=== PATIENT | male | born 1950 | race Caucasian/White ===

== ENCOUNTER 2020-01-31 09:59 | Outpatient (REF) | payer OTHER, SELFPAY ==
[2020-01-31 11:26] LABS: Hematocrit 44.6 % (42-52); Hemoglobin 14.8 g/dl (14.0-18.0); Mean Corpuscular HGB Conc 33.2 g/dl (31.0-36.0); Mean Corpuscular Hemoglobin 27.6 pg (27.0-33.0); Mean Corpuscular Volume 83.1 fL (80-98); Mean Platelet Volume 10.4 fL (9.4-12.4); Platelet Count 207 X10*3/uL (160-400); Red Blood Count 5.37 X10*6/uL (4.60-5.80); Red Cell Distribution Width 12.5 % (11.0-16.0); White Blood Count 8.5 X10*3/uL (4.8-10.8)
[2020-01-31 11:45] LABS: Alanine Aminotransferase 39 U/L (0-40); Albumin Level 4.2 g/dL (3.5-5.0); Alkaline Phosphatase 132 U/L (39-117); Anion Gap 13 (12-20); Aspartate Amino Transferase 31 U/L (5-37); Bilirubin Direct 0.2 mg/dL (0.0-0.5); Bilirubin Total 0.8 mg/dL (0.0-1.0); Blood Urea Nitrogen 18 mg/dL (9-16); Calcium 9.1 mg/dL (8.4-10.2); Carbon Dioxide 27 mmol/L (22-29); Chloride 101 mmol/L (96-108); Cholesterol 146 mg/dL; Estimated Glomerular Filt Rate 53; Glucose Random 343 mg/dL (60-115); HDL Cholesterol 33 mg/dL; LDL Cholesterol Calculated 39 mg/dl; Potassium 4.2 mmol/l (3.3-5.1); Sodium 137 mmol/L (135-145); Triglycerides 372 mg/dL
== END 2020-01-31 10:00 | disposition home or self-care (01) ==
LOC: HO.HMGCLDS 09:59
PROVIDERS: PCP Internal Medicine; Visit Provider Internal Medicine
DX: I10 Essential (primary) hypertension (principal)
CPT/HCPCS: 36415; 80048; 80061; 80076; 85027

== ENCOUNTER 2020-02-04 07:59 | Day surgery (SDC) | payer OTHER, SELFPAY ==
[2020-01-29 09:58] VITALS: BMI 29.7
--- NOTE | 2020-01-31 13:11 | MHC.SHP ---
Pre-Procedural Eval Section A The patient is an INPATIENT: No The History & Physical has been completed within 30 days and I have reviewed it.: Yes Section B Chief Complaint: Cataract Right Eye Allergies: Allergies Allergy/AdvReac Type Severity Reaction Status Date / Time oxycodone [OXYCODONE] AdvReac Severe SEVERE Verified 01/27/20 09:33 VOMITNG Plan Diagnosis/Plan: Unchanged Patient has been examined and remains a candidate for the planned procedure
--- NOTE | 2020-02-01 13:54 | HO.ANESPROP2 ---
Documented by User: Trisha Archibald 02/01/20 13:56 HPI - Anesthesia Eval Consult details Narrative: 69yo M for cataract PCP cleared [facility] Past Medical History Medical History Back pain Benign essential hypertension Cataract Coronary artery disease Hx of gout Lab test negative for COVID-19 virus Osteoarthritis of hips, bilateral Overweight (BMI 25.0-29.9) Pure hypercholesterolemia Family History Family History Father Diabetes Kidney failure Mother Colon cancer Surgical History Surgical History (Updated 01/29/20 @ 10:[address]) History of colonoscopy History of hip replacement History of right hip replacement Hx of coronary angioplasty Social History Social History Smoking Status: Former smoker Tobacco Type: Cigarette Smoked in Last 30 Days: No Smoking Quit Date: age 46 Use of substances other than those prescribed or required for medical reasons: No Have you been hit, kicked, punched, or otherwise hurt by someone within the past year? If so, by whom?: No Advance Directives Information Provided: No Recently lost weight without trying: No Meds Allergies Allergy/AdvReac Type Severity Reaction Status Date / Time oxycodone [OXYCODONE] AdvReac Severe SEVERE Verified 01/27/20 09:33 VOMITNG Home Medications Medication Instructions Recorded Confirmed Type lisinopril 10 mg tablet 10 mg PO DAILY 01/24/20 01/29/20 History rosuvastatin 20 mg tablet 20 mg PO BEDTIME 01/24/20 01/29/20 History aspirin 81 mg tablet,delayed 81 mg PO DAILY 01/27/20 01/29/20 History release indomethacin 50 mg PO BID PRN 01/29/20 01/29/20 History Exam Exam Date and Time: February 01, 2020 1354 Height,Weight and Vital Signs: Height 5 ft 6 in Weight 83.461 kg Pertinent Lab Results Pertinent Lab Results: Laboratory Tests 01/31/20 01/31/20 10:06 10:06 WBC 8.5 Hgb 14.8 Hct 44.6 Plt Count 207 Sodium 137 Potassium 4.2 Chloride 101 BUN 18 H Creatinine 1.32 Assessment and Plan Assessment Anesthesia Assessment: Chart Reviewed Documented by User: Radha Rogelio 02/04/20 09:30 [facility] Past Medical History Medical History Back pain Benign essential hypertension Cataract Coronary artery disease Hx of gout Lab test negative for COVID-19 virus Osteoarthritis of hips, bilateral Overweight (BMI 25.0-29.9) Pure hypercholesterolemia Family History Family History Father Diabetes Kidney failure Mother Colon cancer Surgical History Surgical History (Updated 01/29/20 @ 10:[address]) History of colonoscopy History of hip replacement History of right hip replacement Hx of coronary angioplasty Social History Social History Smoking Status: Former smoker Tobacco Type: Cigarette Smoked in Last 30 Days: No Smoking Quit Date: age 46 Use of substances other than those prescribed or required for medical reasons: No Have you been hit, kicked, punched, or otherwise hurt by someone within the past year? If so, by whom?: No Advance Directives Information Provided: No Recently lost weight without trying: No Meds Allergies Allergy/AdvReac Type Severity Reaction Status Date / Time oxycodone [OXYCODONE] AdvReac Severe SEVERE Verified 01/27/20 09:33 VOMITNG Home Medications Medication Instructions Recorded Confirmed Type lisinopril 10 mg tablet 10 mg PO DAILY 01/24/20 01/29/20 History rosuvastatin 20 mg tablet 20 mg PO BEDTIME 01/24/20 01/29/20 History aspirin 81 mg tablet,delayed 81 mg PO DAILY 01/27/20 01/29/20 History release indomethacin 50 mg PO BID PRN 01/29/20 01/29/20 History Exam Airway Mallampati Class: III TM Dist: >3cm Neck ROM: Full Denture: Upper Partial: Upper Heart: RRR Lungs: CTA BL Assessment and Plan Assessment Anesthesia Assessment: Anesthesia Plan Discussed and Chart Reviewed Final Anesthetic Review NPO: Yes (Sip water meds) ASA Class: II Final Preanesthetic Review: Meds/Allgs Chart Reviewed and Consent Obtained/Reviewed Patient Risk: Intermediate Procedure Risk: Intermediate Anesthetic Plan Anesthetic Plan: MAC: Disposition: Standard PACU
[2020-02-04 09:23] VITALS: BP 149/77; PULSE 60; RESP 16; TEMP 35.8; O2SAT 97
[2020-02-04] MEDS: Lactated Ringers 500 ML 50 ML IV (09:28)
[2020-02-04] MEDS: Tetracaine HCl/PF 0.5% Oph Sol 4 ML DROPS 1 DROP EYE-RIGHT (09:30)
[2020-02-04] MEDS: Tropicamide 1 % Ophth Sol 3 ML BTL 1 DROP EYE-RIGHT ×3 (09:32→09:38)
--- NOTE | 2020-02-04 10:21 | HO.PNOPHT ---
Ophthalmology Procedure Procedure Ophthalmology Viscoelastic: Donald Kelly Dual Pack Pro Ophthalmology Lenses: TECNIS [id number] (19) Procedure Notes: PREOPERATIVE DIAGNOSIS: Decreased visual acuity right eye secondary to cataract POSTOPERATIVE DIAGNOSIS: Same PROCEDURE: Right cataract extraction with intraocular lens insertion SURGEON: Ramon Alvarez M.D. ANESTHESIA: Topical/MAC ESTIMATED BLOOD LOSS: None COMPLICATIONS: None After obtaining informed consent, the patient was brought to the operating room suite and placed in the supine position. After adequate sedation per anesthesia, topical drops of Tetracaine were given to the right eye. The eye was then prepped and draped in the usual sterile fashion. The operating room microscope was then positioned over the operative eye and a lid speculum placed. A paracentesis was created. Viscoelastic was then instilled into the anterior chamber. A three plane incision was then created temporally, utilizing a 2.85 mm keratome. Capsulotomy forceps were then utilized to create a circular tear capsulotomy. Hydrodissection and hydrodelineation were carried out until adequate mobilization of the nucleus occurred. Phacoemulsification was then utilized to remove the dense central nucleus followed by removal of the cortical material utilizing the automated aspiration irrigation unit. Viscoelastic was instilled into the posterior capsular bag followed by placement of a posterior chamber intraocular lens without difficulty. The residual Viscoelastic was then removed utilizing the automated IA machine. The wound was checked and found to be watertight. The patient tolerated the procedure well and the lid speculum was removed. Intracameral injection of Vigamox 0.1 mL followed by a subtenon injection of Kenalog-40 0.2 mL were administered. The patient will be seen in the a.m.
[2020-02-04 10:23] VITALS: BP 120/62; PULSE 59; RESP 14; TEMP 36.1; O2SAT 96
== END 2020-02-04 11:15 | disposition home or self-care (01) ==
PROVIDERS: PCP Internal Medicine; Visit Provider Ophthalmology
PROC: (CPT 66985; principal; 2020-02-04 10:30)
DX: H25.11 Age-related nuclear cataract, right eye (principal); H54.7 Unspecified visual loss; I10 Essential (primary) hypertension; I25.10 Atherosclerotic heart disease of native coronary artery without angina pectoris; M16.0 Bilateral primary osteoarthritis of hip; Z79.899 Other long term (current) drug therapy; Z79.82 Long term (current) use of aspirin; Z87.891 Personal history of nicotine dependence; E66.3 Overweight
CPT/HCPCS: 66984; J2250; J3010; J3300; V2632

== ENCOUNTER 2020-02-18 08:43 | Day surgery (SDC) | payer OTHER, SELFPAY ==
[2020-01-29 10:11] VITALS: BMI 29.7
--- NOTE | 2020-02-13 08:20 | MHC.SHP ---
Pre-Procedural Eval Section A The patient is an INPATIENT: No The History & Physical has been completed within 30 days and I have reviewed it.: Yes Section B Chief Complaint: Cataract Left Eye Allergies: Allergies Allergy/AdvReac Type Severity Reaction Status Date / Time oxycodone [OXYCODONE] AdvReac Severe SEVERE Verified 01/27/20 09:33 VOMITNG Plan Diagnosis/Plan: Unchanged Patient has been examined and remains a candidate for the planned procedure
[2020-02-18] MEDS: Tetracaine HCl/PF 0.5% Oph Sol 4 ML DROPS 1 DROP EYE-LEFT (09:42)
[2020-02-18] MEDS: Tropicamide 1 % Ophth Sol 3 ML BTL 1 DROP EYE-LEFT ×3 (09:43→09:51)
--- NOTE | 2020-02-18 09:46 | HO.ANESPROP2 ---
[facility] Past Medical History Medical History Back pain Benign essential hypertension Cataract Coronary artery disease Hx of gout Lab test negative for COVID-19 virus Osteoarthritis of hips, bilateral Overweight (BMI 25.0-29.9) Pure hypercholesterolemia Family History Family History Father Diabetes Kidney failure Mother Colon cancer Surgical History Surgical History History of colonoscopy History of hip replacement History of right hip replacement Hx of coronary angioplasty Social History Social History Smoking Status: Former smoker Tobacco Type: Cigarette Smoked in Last 30 Days: No Smoking Quit Date: age 46 Use of substances other than those prescribed or required for medical reasons: No Have you been hit, kicked, punched, or otherwise hurt by someone within the past year? If so, by whom?: No Advance Directives Information Provided: No Recently lost weight without trying: No Meds Allergies Allergy/AdvReac Type Severity Reaction Status Date / Time oxycodone [OXYCODONE] AdvReac Severe SEVERE Verified 01/27/20 09:33 VOMITNG Home Medications Medication Instructions Recorded Confirmed Type lisinopril 10 mg tablet 10 mg PO DAILY 01/24/20 01/29/20 History rosuvastatin 20 mg tablet 20 mg PO BEDTIME 01/24/20 01/29/20 History aspirin 81 mg tablet,delayed 81 mg PO DAILY 01/27/20 01/29/20 History release indomethacin 50 mg PO BID PRN 01/29/20 01/29/20 History Exam Exam Date and Time: February 18, 2020 0946 Height,Weight and Vital Signs: Height 5 ft 6 in Weight 83.461 kg Airway Mallampati Class: II Neck ROM: Full Denture: Upper Partial: Lower Loose/Missing/Broken Teeth: Yes, Upper and Lower Heart: RRR Lungs: CTA Assessment and Plan Final Anesthetic Review NPO: Yes ASA Class: II Final Preanesthetic Review: No Changes in Pt Med Stat, Meds/Allgs Chart Reviewed, Consent Obtained/Reviewed and Anes Risks/Benef Reviewed Patient Risk: Intermediate Procedure Risk: Low Anesthetic Plan Anesthetic Plan: MAC: Disposition: Standard PACU
[2020-02-18] MEDS: Lactated Ringers 500 ML 50 ML IV (09:53)
--- NOTE | 2020-02-18 11:19 | HO.PNOPHT ---
Ophthalmology Procedure Procedure Date of Service: 02/18/20 Ophthalmology Viscoelastic: Healon Duet Dual Pack Pro Ophthalmology Lenses: TECNIS [id number] (19.5) Procedure Notes: PREOPERATIVE DIAGNOSIS: Decreased visual acuity left eye secondary to cataract POSTOPERATIVE DIAGNOSIS: Same PROCEDURE: Left cataract extraction with intraocular lens insertion SURGEON: Ramon Alvarez M.D. ANESTHESIA: Topical/MAC ESTIMATED BLOOD LOSS: None COMPLICATIONS: None After obtaining informed consent, the patient was brought to the operation room suite and placed in the supine position. After adequate sedation per anesthesia, topical drops of Tetracaine were given to the left eye. The eye was then prepped and draped in the usual sterile fashion. The operating room microscope was then positioned over the operative eye and a lid speculum placed. A paracentesis was created. Viscoelastic was then instilled into the anterior chamber. A three plane incision was then created temporally, utilizing a 2.85 mm keratome. Capsulotomy forceps were then utilized to create a circular tear capsulotomy. Hydrodissection and hydrodelineation were carried out until adequate mobilization of the nucleus occurred. Phacoemulsification was then utilized to remove the dense central nucleus followed by removal of the cortical material utilizing the automated aspiration irrigation unit. Viscoat elastic was instilled into the posterior capsular bag followed by placement of a posterior chamber intraocular lens without difficulty. The residual Viscoat elastic was then removed utilizing the automated IA machine. The wound was check and found to be watertight. The patient tolerated the procedure well and the lid speculum was removed. Intracameral injection of Vigamox 0.1 mL followed by a subtenon injection of Kenalog-40 0.2 mL were administered. The patient will be seen in the a.m.
[2020-02-18 11:20] VITALS: BP 145/73; PULSE 58; RESP 14; TEMP 36.8; O2SAT 97
== END 2020-02-18 12:00 | disposition home or self-care (01) ==
PROVIDERS: PCP Internal Medicine; Visit Provider Ophthalmology
PROC: (CPT 66985; principal; 2020-02-18 11:10)
DX: H25.812 Combined forms of age-related cataract, left eye (principal); H54.7 Unspecified visual loss; I10 Essential (primary) hypertension; E78.00 Pure hypercholesterolemia, unspecified; M10.9 Gout, unspecified; Z79.82 Long term (current) use of aspirin; Z79.899 Other long term (current) drug therapy; Z88.8 Allergy status to other drugs, medicaments and biological substances; Z96.643 Presence of artificial hip joint, bilateral; Z87.891 Personal history of nicotine dependence
CPT/HCPCS: 66984; J2250; J3010; J3300; V2632

== ENCOUNTER 2020-04-01 09:12 | Outpatient (REF) | payer OTHER, SELFPAY ==
--- NOTE | 2020-04-01 11:41 | XR_ITS ---
EXAMINATION: CR X-RAY HIP TWO-VIEW BILATERAL, PELVIS 1 VIEW CLINICAL INFORMATION: Bilateral hip and pelvic pain. COMPARISON: Right hip radiographs dated 05/18/2019 left hip radiographs dated 02/07/2019. TECHNIQUE: AP and frog-leg views of the bilateral hips as well as an AP view of the pelvis were obtained. FINDINGS: The patient is status post bilateral hip arthroplasty showing good anatomic alignment with no evidence for hardware malfunction. Subcortical lucency is seen in the superior aspects of the acetabula bilaterally. The bony pelvis is intact. The soft tissues are unremarkable. XR/XR hip LT min 2V IMPRESSION: No acute fracture or hardware abnormality. Subcortical lucencies in the superior aspects of the acetabulum bilaterally are similar to previous studies.
--- NOTE | 2020-04-01 11:41 | XR_ITS ---
EXAMINATION: CR X-RAY HIP TWO-VIEW BILATERAL, PELVIS 1 VIEW CLINICAL INFORMATION: Bilateral hip and pelvic pain. COMPARISON: Right hip radiographs dated 05/18/2019 left hip radiographs dated 02/07/2019. TECHNIQUE: AP and frog-leg views of the bilateral hips as well as an AP view of the pelvis were obtained. FINDINGS: The patient is status post bilateral hip arthroplasty showing good anatomic alignment with no evidence for hardware malfunction. Subcortical lucency is seen in the superior aspects of the acetabula bilaterally. The bony pelvis is intact. The soft tissues are unremarkable. XR/XR pelvis 1-2V IMPRESSION: No acute fracture or hardware abnormality. Subcortical lucencies in the superior aspects of the acetabulum bilaterally are similar to previous studies.
--- NOTE | 2020-04-01 11:41 | XR_ITS ---
EXAMINATION: CR X-RAY HIP TWO-VIEW BILATERAL, PELVIS 1 VIEW CLINICAL INFORMATION: Bilateral hip and pelvic pain. COMPARISON: Right hip radiographs dated 05/18/2019 left hip radiographs dated 02/07/2019. TECHNIQUE: AP and frog-leg views of the bilateral hips as well as an AP view of the pelvis were obtained. FINDINGS: The patient is status post bilateral hip arthroplasty showing good anatomic alignment with no evidence for hardware malfunction. Subcortical lucency is seen in the superior aspects of the acetabula bilaterally. The bony pelvis is intact. The soft tissues are unremarkable. XR/XR hip RT min 2V IMPRESSION: No acute fracture or hardware abnormality. Subcortical lucencies in the superior aspects of the acetabulum bilaterally are similar to previous studies.
== END 2020-04-01 09:13 | disposition home or self-care (01) ==
LOC: HO.HOSX 09:12
PROVIDERS: PCP Internal Medicine; Visit Provider Orthopaedic Surgery
DX: M25.552 Pain in left hip (principal); M25.551 Pain in right hip; R10.2 Pelvic and perineal pain
CPT/HCPCS: 72170; 73502; 99212

== ENCOUNTER → 2020-04-28 13:40 | Outpatient (BNVA) | payer OTHER, SELFPAY | PROVIDERS: PCP Internal Medicine; Visit Provider Internal Medicine Cardiovascular Disease | DX: I25.10 Atherosclerotic heart disease of native coronary artery without angina pectoris (principal); R73.9 Hyperglycemia, unspecified | CPT/HCPCS: 93005; 99212 ==

== ENCOUNTER 2020-05-26 09:14 | Outpatient (REF) | payer OTHER, SELFPAY ==
[2020-05-26 11:44] LABS: Estimated Average Glucose 338 mg/dL; Hemoglobin A1c % 13.4 %
== END 2020-05-26 09:15 | disposition home or self-care (01) ==
LOC: HO.HMGCLDS 09:14
PROVIDERS: PCP Internal Medicine; Visit Provider Internal Medicine
DX: R73.9 Hyperglycemia, unspecified (principal)
CPT/HCPCS: 36415; 83036

== ENCOUNTER 2020-09-09 09:19 | Outpatient (REF) | payer OTHER, SELFPAY ==
[2020-09-09 10:02] LABS: Hemoglobin 14.3 g/dl (14.0-18.0); Mean Corpuscular HGB Conc 33.3 g/dl (31.0-36.0); Mean Corpuscular Hemoglobin 27.4 pg (27.0-33.0); Mean Corpuscular Volume 82.5 fL (80-98); Mean Platelet Volume 9.9 fL (9.4-12.4); Platelet Count 205 X10*3/uL (160-400); Red Blood Count 5.21 X10*6/uL (4.60-5.80); Red Cell Distribution Width 13.5 % (11.0-16.0); White Blood Count 10.5 X10*3/uL (4.8-10.8)
[2020-09-09 10:27] LABS: Alanine Aminotransferase 18 U/L (0-40); Albumin Level 4.2 g/dL (3.5-5.0); Alkaline Phosphatase 102 U/L (39-117); Aspartate Amino Transferase 21 U/L (5-37); Bilirubin Direct 0.2 mg/dL (0.0-0.5); Bilirubin Total 0.5 mg/dL (0.0-1.0); Cholesterol 153 mg/dL; HDL Cholesterol 32 mg/dL; LDL Cholesterol Calculated 55 mg/dl; Total Protein 6.8 g/dL (6.5-8.0); Triglycerides 333 mg/dL
[2020-09-09 10:56] LABS: Erythrocyte Sedimentation Rate 18 MM/HR (0-15)
[2020-09-09 10:57] LABS: Folate 17.7 ng/mL (> or = 4.0); Vitamin B12 587 pg/mL (200-900)
[2020-09-09 12:17] LABS: Estimated Average Glucose 174 mg/dL; Hemoglobin A1c % 7.7 %
== END 2020-09-09 09:20 | disposition home or self-care (01) ==
LOC: HO.LAB 09:19
PROVIDERS: PCP Internal Medicine; Visit Provider Internal Medicine
DX: E11.9 Type 2 diabetes mellitus without complications (principal); E78.00 Pure hypercholesterolemia, unspecified; I25.10 Atherosclerotic heart disease of native coronary artery without angina pectoris
CPT/HCPCS: 36415; 80061; 80076; 82607; 82746; 83036; 84443; 85027; 85652

== ENCOUNTER 2021-04-06 07:06 | Outpatient (REF) | payer OTHER, SELFPAY ==
--- NOTE | ~2021-04-06 | XR_ITS ---
EXAMINATION: XR PELVIS CLINICAL INFORMATION: Hip pain COMPARISON: Pelvic and bilateral radiographs 04/01/2020. TECHNIQUE: AP x2 views of the pelvis. FINDINGS: There are bilateral hip prostheses. Hardware is intact. There is no interval periprosthetic lucency. Some subtle lucency pelvis adjacent to the acetabular cups are stable. No destructive process, interval osteolysis, or periostitis. No fracture or dislocation. The SI joints and pubis show no diastases. There are degenerative changes again seen lower lumbar spine. XR/XR pelvis 1-2V IMPRESSION: No acute bony abnormality.
== END 2021-04-06 07:07 | disposition home or self-care (01) ==
LOC: HO.HOSX 07:06
PROVIDERS: Visit Provider Orthopaedic Surgery
DX: M25.559 Pain in unspecified hip (principal); M16.0 Bilateral primary osteoarthritis of hip; I25.10 Atherosclerotic heart disease of native coronary artery without angina pectoris; I10 Essential (primary) hypertension; E11.9 Type 2 diabetes mellitus without complications; E78.00 Pure hypercholesterolemia, unspecified; Z87.891 Personal history of nicotine dependence; Z96.643 Presence of artificial hip joint, bilateral; Z95.5 Presence of coronary angioplasty implant and graft; Z88.6 Allergy status to analgesic agent
CPT/HCPCS: 72170; 99212

== ENCOUNTER → 2021-04-30 13:27 | Outpatient (BNVA) | payer OTHER, SELFPAY | PROVIDERS: PCP Internal Medicine; Referring Provider Internal Medicine; Visit Provider Internal Medicine Cardiovascular Disease | DX: I25.10 Atherosclerotic heart disease of native coronary artery without angina pectoris (principal); I10 Essential (primary) hypertension | CPT/HCPCS: 93005; 99212 ==

== ENCOUNTER 2021-07-02 08:22 | Outpatient (REF) | payer OTHER, SELFPAY ==
[2021-07-02 11:28] LABS: Hematocrit 43.8 % (42.0-52.0); Hemoglobin 14.2 g/dl (14.0-18.0); Mean Corpuscular HGB Conc 32.4 g/dl (31.0-36.0); Mean Corpuscular Hemoglobin 28.2 pg (27.0-33.0); Mean Corpuscular Volume 86.9 fL (80.0-98.0); Mean Platelet Volume 10.1 fL (9.4-12.4); Platelet Count 208 X10*3/uL (160-400); Red Blood Count 5.04 X10*6/uL (4.60-5.80); Red Cell Distribution Width 13.6 % (11.0-16.0); White Blood Count 8.9 X10*3/uL (4.8-10.8)
[2021-07-02 11:57] LABS: Alanine Aminotransferase 25 U/L (0-40); Albumin Level 4.2 g/dL (3.5-5.0); Alkaline Phosphatase 80 U/L (39-117); Anion Gap 14 (12-20); Aspartate Amino Transferase 23 U/L (5-37); Bilirubin Direct 0.2 mg/dL (0.0-0.5); Bilirubin Total 0.4 mg/dL (0.0-1.0); Blood Urea Nitrogen 17 mg/dL (9-16); Calcium 9.4 mg/dL (8.4-10.2); Carbon Dioxide 26 mmol/L (22-29); Chloride 104 mmol/L (96-108); Cholesterol 157 mg/dL; Estimated Glomerular Filt Rate 55; Glucose Random 133 mg/dL (60-115); HDL Cholesterol 35 mg/dL; LDL Cholesterol Calculated 73 mg/dl; Potassium 3.9 mmol/L (3.3-5.1); Sodium 140 mmol/L (135-145); Triglycerides 245 mg/dL
[2021-07-02 12:00] LABS: Thyroid Stimulating Hormone 1.54 uIU/mL (0.32-4.0)
[2021-07-02 12:34] LABS: Estimated Average Glucose 140 mg/dL; Hemoglobin A1c % 6.5 %
[2021-07-02 15:52] LABS: Appearance Urine CLEAR; Color Urine YELLOW; Glucose Urine UA NEG (NEG); Leukocyte Esterase Urine NEG (NEG); Nitrite Urine NEG (NEG); PH 5.5 (5.0-8.0); Urine Blood NEG (NEG); Urine Ketones NEG (NEG); Urine Protein NEG (NEG-TRACE)
[2021-07-02 16:11] LABS: Creatinine Urine 116.86 mg/dL; Microalbum/Creatinine Ratio Ur 7.7 ug/mg cr
== END 2021-07-02 08:23 | disposition home or self-care (01) ==
LOC: HO.HMGCLDS 08:22
PROVIDERS: Visit Provider Internal Medicine
DX: E11.9 Type 2 diabetes mellitus without complications (principal); E78.00 Pure hypercholesterolemia, unspecified; M16.0 Bilateral primary osteoarthritis of hip
CPT/HCPCS: 36415; 80048; 80061; 80076; 81003; 82043; 83036; 84443; 85027

== ENCOUNTER → 2021-09-03 14:41 | Outpatient (BNVA) | payer OTHER, SELFPAY | PROVIDERS: PCP Internal Medicine; Referring Provider Internal Medicine; Visit Provider Nurse Practitioner | DX: D12.6 Benign neoplasm of colon, unspecified (principal); Z80.0 Family history of malignant neoplasm of digestive organs | CPT/HCPCS: 99202 ==

== ENCOUNTER 2022-01-20 08:52 | Day surgery (SDC) | payer OTHER, SELFPAY ==
[2022-01-14 14:45] VITALS: BMI 29.5
--- NOTE | 2022-01-19 11:44 | P.CONAN_ITS ---
Documented by User: Trisha Archibald NP 01/19/22 11:46 HPI - Anesthesia Eval Consult details Narrative: 71yo M for Colonoscopy Stable at 2021 cardiac visit (htn, CAD with hx of angioplasty) [facility] Active Problems Active Problems: All Active Problems (Updated 01/14/22 @ 14:26 by Tram Maurer, KRYSTINA) Hyperglycemia (Acute) Painful hip (Acute) Status post total hip replacement, right (Acute) Screening for colon cancer (Acute) Tubular adenoma of colon (Acute) History of hip replacement (Acute) Type 2 diabetes mellitus without complications (Acute) History of right hip replacement (Acute) Overweight (BMI 25.0-29.9) (Acute) Osteoarthritis of hips, bilateral (Acute) Benign essential hypertension (Acute) Pure hypercholesterolemia (Acute) Coronary artery disease (Acute) Cataract (Acute) Past Medical History Medical History Back pain Benign essential hypertension Cataract Coronary artery disease Hx of gout Lab test negative for COVID-19 virus On beta timoteo at home Osteoarthritis of hips, bilateral Overweight (BMI 25.0-29.9) Pure hypercholesterolemia Type 2 diabetes mellitus without complications Family History Family History Father Diabetes Kidney failure Mother Colon cancer Surgical History Surgical History History of cataract surgery History of colonoscopy History of hip replacement History of right hip replacement Hx of coronary angioplasty Social History Social History Housing: House Are you a primary care transport nurse to a significant other at home: No Do you presently have visiting nurse or other home services: No Alcohol intake: current Alcohol intake frequency: holidays/special occasions only Patient Tobacco Use Status: Former Tobacco user Quit Date: 1996 e-Cigarette/Vaping Use: Never Used Second Hand Smoke Exposure: No Use of substances other than those prescribed or required for medical reasons: No Have you been hit, kicked, punched, or otherwise hurt by someone within the past year? If so, by whom?: No Are you DNR?: No Advance Directives: No Advance Directives Information Provided: Yes Advance Directives on File: No Recently lost weight without trying: No Eating poorly because of decreased appetite: No Nutrition Risks: No Nutritional Risk service: Yes Current occupational status: retired Cognitive needs: No Hearing needs: No Vision needs: Yes (reading glasses) Meds Allergies Allergy/AdvReac Type Severity Reaction Status Date / Time oxycodone [OXYCODONE] AdvReac Severe SEVERE Verified 01/14/22 14:26 VOMITNG Home Medications Medication Instructions Recorded Confirmed Last Taken Type aspirin 81 mg tablet,delayed 81 mg PO DAILY 01/27/20 01/14/22 Unknown History release (Adult Aspirin Regimen) Exam Exam Date and Time: January 19, 2022 1144 Height,Weight and Vital Signs: Height 5 ft 6 in Weight 83.007 kg Narrative Narrative: EKG 04/2021 64/min, normal ECG, QTC 387 msec Assessment and Plan Assessment Anesthesia Assessment: Chart Reviewed Documented by User: Tiffany Yeager MD 01/20/22 09:37 [facility] Past Medical History Medical History Back pain Benign essential hypertension Cataract Coronary artery disease Hx of gout Lab test negative for COVID-19 virus On beta timoteo at home Osteoarthritis of hips, bilateral Overweight (BMI 25.0-29.9) Pure hypercholesterolemia Type 2 diabetes mellitus without complications Functional capacity: independent ambulation Family History Family History Father Diabetes Kidney failure Mother Colon cancer Family history of problems with anesthesia: No Surgical History Surgical History History of cataract surgery History of colonoscopy History of hip replacement History of right hip replacement Hx of coronary angioplasty History of Problems with Anesthesia: No Social History Social History Housing: House Are you a primary care transport nurse to a significant other at home: No Do you presently have visiting nurse or other home services: No Alcohol intake: current Alcohol intake frequency: holidays/special occasions only Patient Tobacco Use Status: Former Tobacco user Quit Date: 1996 e-Cigarette/Vaping Use: Never Used Second Hand Smoke Exposure: No Use of substances other than those prescribed or required for medical reasons: No Have you been hit, kicked, punched, or otherwise hurt by someone within the past year? If so, by whom?: No Are you DNR?: No Advance Directives: No Advance Directives Information Provided: Yes Advance Directives on File: No Recently lost weight without trying: No Eating poorly because of decreased appetite: No Nutrition Risks: No Nutritional Risk service: Yes Current occupational status: retired Cognitive needs: No Hearing needs: No Vision needs: Yes (reading glasses) Meds Allergies Allergy/AdvReac Type Severity Reaction Status Date / Time oxycodone [OXYCODONE] AdvReac Severe SEVERE Verified 01/14/22 14:26 VOMITNG Home Medications Medication Instructions Recorded Confirmed Last Taken Type aspirin 81 mg tablet,delayed 81 mg PO DAILY 01/27/20 01/14/22 Unknown History release (Adult Aspirin Regimen) Exam Airway Mallampati Class: III TM Dist: >3cm Neck ROM: Full Heart: RRR Lungs: CTA Assessment and Plan Final Anesthetic Review Family History of Problems with Anesthesia: No History of Problems with Anesthesia: No ASA Class: III Final Preanesthetic Review: No Changes in Pt Med Stat, Meds/Allgs Chart Reviewed and Anes Risks/Benef Reviewed Patient Risk: Intermediate Procedure Risk: Low Anesthetic Plan Anesthetic Plan: MAC: Disposition: Standard PACU
--- NOTE | 2022-01-20 09:16 | P.HPSUR_ITS ---
Pre-Procedural Eval Section A Date of Service: 01/20/22 Section B Chief Complaint: neoplasm of colon Details of Present Illness: mother CRC aged 75 Relevant Family History (Specify if Yes): Yes Relevant Social History: None Present Medications: see Short Stay Collaborative assessment Medical History: Significant History (Back pain Benign essential hypertension Cataract Coronary artery disease Hx of gout Lab test negative for COVID-19 virus On beta timoteo at home Osteoarthritis of hips, bilateral Overweight (BMI 25.0- 29.9) Pure hypercholesterolemia Type 2 diabetes mellitus without complications) History of Previous Operations: Relevant previous surgery/procedure and date(s) (History of cataract surgery History of colonoscopy History of hip replacement History of right hip replacement Hx of coronary angioplasty) Allergies: Allergies Allergy/AdvReac Type Severity Reaction Status Date / Time oxycodone [OXYCODONE] AdvReac Severe SEVERE Verified 01/14/22 14:26 VOMITNG Review of Systems Sugical H&P ROS: Negative: Constitution, Cardiovascular, Respiratory, Neurological, Psychiatric, Hem-Onc, Allergic/Immunologic, Gastrointestinal, Genitourinary, Musculoskeletal, Integumentary, Endocrine and Eyes/Ears/Nose/Throat Exam Surgical H&P Exam: Normal: HEENT, Normal: Heart, Normal: Lungs, Normal: Extremities, Normal: Abdomen, Normal: Skin and Normal: Neurological Plan Diagnosis/Plan: Unchanged I have reviewed the history and physical and performed a pertinent physical examination on my patient. No changes have occurred unless specified.
[2022-01-20 09:46] VITALS: BMI 29.0
[2022-01-20 09:54] LABS: Glucose, Whole Blood 131 mg/dL (60-115)
--- NOTE | 2022-01-20 10:00 | W.PM.OPN ---
Operative Note Operative Note Date of Service: 01/20/22 Narrative: Operative Information Procedure Description: Colonoscopy Indication: hx of polyps Anesthesia: MAC COLONOSCOPY Instrument: Olympus variable stiffness pediatric scope 190L Colonoscopy Monitoring: Vital signs and clinical assessment, continuous EKG monitoring, Pulse oximetry, Carbon Dioxide monitoring and blood pressure monitoring were done throughout the procedure. Colon withdrawal time was 7 minutes. Procedure: The patient was placed in the left lateral decubitis position and pre-procedure medications were administered. After a digital rectal examination of the ano-rectum, the video colonoscope was inserted into the rectum and advanced through the colon to the cecum/TI. The colonoscope was slowly withdrawn in a retrograde panoramic fashion and the colon mucosa was carefully examined including a retroflexed view of the rectum. Findings and interventions are described below. Procedure Difficulty: easy Findings: Terminal Ileum-normal Cecum:normal right sided retroflexion--normal Ascending Colon: normal Transverse Colon -normal Descending Colon:normal Sigmoid Colon: moderate diverticulosis, 8-10 mm sessile polyp removed with cold snare Rectum: Retroflexion with small internal hemorrhoids, grade I Anorectum - normal Colon preparation: [place] Bowel Preparation Scale Right colon; 3 Transverse colon: 3 Left colon; 3 (0 = Unprepared colon segment with mucosa not seen due to solid stool that cannot be cleared. 1 = Portion of mucosa of the colon segment seen, but other areas of the colon segment not well seen due to staining, residual stool and/or opaque liquid. 2 = Minor amount of residual staining, small fragments of stool and/or opaque liquid, but mucosa of colon segment seen well. 3 = Entire mucosa of colon segment seen well with no residual staining, small fragments of stool or opaque liquid) Impression and Post Procedure Diagnosis: polyp internal hemorrhoids diverticular disease Plan: High fiber diet leaflet Avoid straining at stool, epsom salts and sitz bath, anusol supps or cream Repeat Colonoscopy in 5 years due to polyp and FH of CRC or earlier if clinically indicated Above findings were reviewed with the patient and relevant handouts were provided if indicated.
[2022-01-20 10:27] VITALS: BP 81/60; PULSE 67; RESP 16; TEMP 36.1; O2SAT 96
[2022-01-20 10:30] VITALS: BP 75/44; PULSE 63; RESP 16; O2SAT 97
[2022-01-20 10:35] VITALS: BP 84/48; PULSE 63; RESP 16; O2SAT 97
[2022-01-20 10:40] VITALS: BP 97/50; PULSE 62; RESP 16; O2SAT 97
[2022-01-20 10:54] VITALS: BP 117/66; PULSE 64; RESP 16; O2SAT 97
[2022-01-20 11:08] VITALS: BP 132/63; PULSE 63; RESP 16; TEMP 36.2; O2SAT 96
== END 2022-01-20 11:38 ==
LOC: HO.SSS 08:53
PROVIDERS: PCP Internal Medicine; Visit Provider Internal Medicine Gastroenterology
PROC: 0DJD8ZZ Inspection of Lower Intestinal Tract, Via Natural or Artificial Opening Endoscopic (ICD-10-PCS; CPT 45378; principal; 2022-01-20 10:20)
DX: Z12.11 Encounter for screening for malignant neoplasm of colon (principal); Z86.010 Personal history of colon polyps; K63.5 Polyp of colon; K57.30 Diverticulosis of large intestine without perforation or abscess without bleeding; K64.0 First degree hemorrhoids; I10 Essential (primary) hypertension; E78.00 Pure hypercholesterolemia, unspecified; I25.2 Old myocardial infarction; I25.10 Atherosclerotic heart disease of native coronary artery without angina pectoris; Z98.61 Coronary angioplasty status; M10.9 Gout, unspecified; E11.9 Type 2 diabetes mellitus without complications; Z79.84 Long term (current) use of oral hypoglycemic drugs; Z79.82 Long term (current) use of aspirin; Z79.899 Other long term (current) drug therapy; Z88.8 Allergy status to other drugs, medicaments and biological substances; Z96.643 Presence of artificial hip joint, bilateral; Z87.891 Personal history of nicotine dependence
CPT/HCPCS: 45385; 82947; 88305

== ENCOUNTER 2022-04-07 16:45 | Outpatient (REF) | payer OTHER, SELFPAY ==
--- NOTE | ~2022-04-07 | XR_ITS ---
EXAMINATION: XR hip RT min 2V, XR hip LT w PEL1V CLINICAL INFORMATION: Reason for Exam M25.551 - Pain in right hip COMPARISON: Hip radiographs 04/01/2020 TECHNIQUE: Two views of the right hip and left hip. One view of the pelvis. FINDINGS: No acute fracture or dislocation. Status post bilateral total hip arthroplasties in unchanged appearance and alignment from prior. Atherosclerotic vascular calcification. XR/XR hip LT w PEL1V IMPRESSION: Bilateral hip arthroplasties in unchanged appearance and alignment from prior. No acute osseous abnormality.
--- NOTE | ~2022-04-07 | XR_ITS ---
EXAMINATION: XR hip RT min 2V, XR hip LT w PEL1V CLINICAL INFORMATION: Reason for Exam M25.551 - Pain in right hip COMPARISON: Hip radiographs 04/01/2020 TECHNIQUE: Two views of the right hip and left hip. One view of the pelvis. FINDINGS: No acute fracture or dislocation. Status post bilateral total hip arthroplasties in unchanged appearance and alignment from prior. Atherosclerotic vascular calcification. XR/XR hip RT min 2V IMPRESSION: Bilateral hip arthroplasties in unchanged appearance and alignment from prior. No acute osseous abnormality.
== END 2022-04-07 16:46 | disposition home or self-care (01) ==
LOC: HO.HOSX 16:45
PROVIDERS: Visit Provider Physician Assistant
DX: Z96.643 Presence of artificial hip joint, bilateral (principal)
CPT/HCPCS: 73502; 99212

== ENCOUNTER → 2022-06-10 11:28 | Outpatient (BNVA) | payer OTHER, SELFPAY | PROVIDERS: PCP Internal Medicine; Referring Provider Internal Medicine; Visit Provider Internal Medicine Cardiovascular Disease | DX: I25.10 Atherosclerotic heart disease of native coronary artery without angina pectoris (principal); I10 Essential (primary) hypertension; E78.00 Pure hypercholesterolemia, unspecified; Z79.82 Long term (current) use of aspirin; Z79.899 Other long term (current) drug therapy | CPT/HCPCS: 93005; 99212 ==

== ENCOUNTER 2022-07-30 10:22 | Outpatient (REF) | payer OTHER, SELFPAY ==
[2022-07-30 11:59] LABS: Hematocrit 43.6 % (42.0-52.0); Mean Corpuscular HGB Conc 32.1 g/dl (31.0-36.0); Mean Corpuscular Hemoglobin 27.7 pg (27.0-33.0); Mean Corpuscular Volume 86.3 fL (80.0-98.0); Mean Platelet Volume 9.8 fL (9.4-12.4); Platelet Count 210 X10*3/uL (160-400); Red Blood Count 5.05 X10*6/uL (4.60-5.80); Red Cell Distribution Width 13.9 % (11.0-16.0); White Blood Count 7.8 X10*3/uL (4.8-10.8)
[2022-07-30 12:07] LABS: Estimated Average Glucose 134 mg/dL; Hemoglobin A1c % 6.3 %
[2022-07-30 12:19] LABS: Alanine Aminotransferase 20 U/L (0-40); Alkaline Phosphatase 83 U/L (39-117); Anion Gap 12 (12-20); Aspartate Amino Transferase 20 U/L (5-37); Bilirubin Direct 0.1 mg/dL (0.0-0.5); Bilirubin Total 0.4 mg/dL (0.0-1.0); Blood Urea Nitrogen 21 mg/dL (9-16); Calcium 9.4 mg/dL (8.4-10.2); Carbon Dioxide 26 mmol/L (22-29); Chloride 106 mmol/L (96-108); Cholesterol 161 mg/dL; Estimated Glomerular Filt Rate 58; Glucose Random 124 mg/dL (60-115); HDL Cholesterol 35 mg/dL; LDL Cholesterol Calculated 81 mg/dl; Potassium 4.2 mmol/L (3.3-5.1); Sodium 140 mmol/L (135-145); Total Protein 6.5 g/dL (6.5-8.0); Triglycerides 225 mg/dL
[2022-07-30 12:44] LABS: Thyroid Stimulating Hormone 0.94 uIU/mL (0.32-4.0)
[2022-07-30 13:32] LABS: Appearance Urine Clear; Color Urine Yellow; Glucose Urine UA Negative (Negative); Leukocyte Esterase Urine Negative (Negative); Nitrite Urine Negative (Negative); Urine Blood Negative (Negative); Urine Ketones Negative (Negative); Urine Protein Negative (Neg-Trace)
[2022-07-30 14:40] LABS: Creatinine Urine 142.55 mg/dL; Microalbum/Creatinine Ratio Ur 11.9 ug/mg cr
== END 2022-07-30 10:23 | disposition home or self-care (01) ==
LOC: HO.HMGCLDS 10:22
PROVIDERS: PCP Internal Medicine; Visit Provider Internal Medicine
DX: E11.9 Type 2 diabetes mellitus without complications (principal); I10 Essential (primary) hypertension
CPT/HCPCS: 36415; 80048; 80061; 80076; 81003; 82043; 83036; 84443; 85027

== ENCOUNTER 2023-02-17 07:56 | Outpatient (AMB) | payer OTHER, SELFPAY ==
--- NOTE | 2023-02-17 08:13 | MHC.PC.OV ---
Vital Signs 02/17/23 08:14 Height 5 ft 6 in Weight 182 lb BMI 29.4 BP 130/62 Blood Pressure Location Lt brachial Position Sitting Pulse 67 Pulse Source Pulse Oximeter Pulse Oximetry (%) 97 Oxygen Delivery Method Room Air Intake Visit Reasons: 6mth f/u Allergies oxycodone [OXYCODONE] Adverse Reaction (Severe, Verified 02/17/23 08:14) SEVERE VOMITNG Tobacco use date assessed: 05/06/22 Fall risk assessment: No Falls in past year Last assessed Fall Risk: 02/17/23 Dental Screening Dental Screen Date: 02/17/23 Did you have a dental visit in the last 12 months?: Yes Did you have a dental problem in the last 6 months where you did not have access to dental care?: No Was dental information given to patient?: Patient has dentist HPI 6mth f/u HPI Details 72-year-old male presents to the office to discuss his chronic medical conditions. Patient is compliant with medications and reporting no side effects. Able to function and do all activities of daily living. Continues to drive at night. Blood sugars done this morning was 108. [facility] Medical History Back pain Benign essential hypertension Cataract Coronary artery disease Hx of gout Lab test negative for COVID-19 virus On beta timoteo at home Osteoarthritis of hips, bilateral Overweight (BMI 25.0-29.9) Pure hypercholesterolemia Type 2 diabetes mellitus without complications Surgical History H/O tooth extraction History of cataract surgery History of colonoscopy History of hip replacement History of right hip replacement Hx of coronary angioplasty Family History Father Diabetes Kidney failure Mother Colon cancer Social History Housing: House Are you a primary health care sanitary technician to a significant other at home: No Do you presently have visiting nurse or other home services: No Alcohol intake: current Alcohol intake frequency: holidays/special occasions only Patient Tobacco Use Status: Former Tobacco user Quit Date: 1996 Tobacco use type: Cigarette e-Cigarette/Vaping Use: Never Used Second Hand Smoke Exposure: No service: Yes Current occupational status: retired Cognitive needs: Yes (cane) Hearing needs: No Vision needs: Yes (reading glasses) Questionnaire PHQ-9 Over the last 2 weeks, how often have you been bothered by any of the following problems? 1. Little interest or pleasure in doing things: not at all 2. Feeling down, depressed, or hopeless: not at all 3. Trouble falling or staying asleep, or sleeping too much: not at all 4. Feeling tired or having little energy: not at all 5. Poor appetite or overeating: not at all 6. Feeling bad about yourself - or that you are a failure or have let yourself or your family down: not at all 7. Trouble concentrating on things, such as reading the newspaper or watching television: not at all 8. Moving or speaking so slowly that other people could have noticed. Or the opposite - being so fidgety or restless that you have been moving around a lot more than usual: not at all 9. Thoughts that you would be better off or of hurting yourself in some way: not at all Total score: 0 Depression Screening Interpretation: Negative Depression Screening Done: Yes Source: Developed by Drs. Panda Yun, Yesenia Benz, Johnson Bedoya and colleagues, with an educational batool from [employer]. Thrive Questionnaire Date Thrive assessed: 05/06/22 AUDIT C Alcohol Use Questionnaire (AUDIT-C) 1. How often do you have a drink containing alcohol?: Monthly or less Total Score: 1 ALEXIS-7 AMB Questionnaire ALEXIS-7 Date ALEXIS - 7 assessed: 05/06/22 Source: Developed by Drs. Panda Yun, Johnson Tee and colleagues, with an educational batool from [employer]. Physical exam (Primary Care) Vital Signs: Last Vital Signs Pulse 67 02/17/23 08:14 BP 130/62 02/17/23 08:14 Pulse Ox 97 02/17/23 08:14 Oxygen Delivery Method Room Air 02/17/23 08:14 BMI result Body Mass Index 29.4 Tobacco/Smoking Status: Tobacco use Status Tobacco use date assessed 05/06/22 02/17/23 08:15 Patient Tobacco Use Status Former Tobacco user 02/17/23 08:15 Tobacco use type Cigarette 11/16/23 08:15 e-Cigarette/Vaping Use Never Used 02/17/23 08:15 PHQ-9: PHQ-9 Score PHQ-9: Total score 0 02/17/23 08:15 Depression Screening Interpretation: Negative Thrive Assessment: Date of Thrive Assessment Date Thrive assessed 05/06/22 02/17/23 08:15 Advance Care Planning discussion: Exists, not on file Date of discussion: 02/17/23 Forms completed: Health Care Proxy Time spent: 1-15 minutes, not on file Const General: cooperative and healthy appearing Nutritional Appearance: well nourished Orientation/consciousness: patient oriented x3 Limitations: no limitations HENMT Head: Yes normal to inspection Eyes General: appearance normal, both eyes and all related structures Neck Neck: Yes normal visual inspection Chest Chest palpation & inspection: normal palpation of entire chest wall Resp Effort & Inspection: normal respiratory effort Neuro General: patient oriented x3 Results AMB Hemoglobin A1c AMB Hemoglobin A1c 6.3 % Last Edit by Zaynab Carlos CMA on 02/17/23 08:28 Assessment and Plan Assessment & Plan (1) Hyperglycemia: Code(s): R73.9 - Hyperglycemia, unspecified (2) Type 2 diabetes mellitus without complications: Code(s): E11.9 - Type 2 diabetes mellitus without complications Plan: Continue current medications. Blood work has been drawn. Will call with results. Up-to-date on all immunizations and screening procedures. Orders: Orders AMB Hemoglobin A1c Today Z13.9 - Encounter for screening, unspecified Basic Metabolic Panel Today E11.9 - Type 2 diabetes mellitus without complications, R73.9 - Hyperglycemia, unspecified Lipid Panel Today E11.9 - Type 2 diabetes mellitus without complications, R73.9 - Hyperglycemia, unspecified Liver Panel Today E11.9 - Type 2 diabetes mellitus without complications, R73.9 - Hyperglycemia, unspecified Thyroid Stimulating Hormone Today E11.9 - Type 2 diabetes mellitus without complications, R73.9 - Hyperglycemia, unspecified UA and rflx microscopic Today E11.9 - Type 2 diabetes mellitus without complications, R73.9 - Hyperglycemia, unspecified Complete Blood Count no Diff Today E11.9 - Type 2 diabetes mellitus without complications, R73.9 - Hyperglycemia, unspecified Hemoglobin A1c Today E11.9 - Type 2 diabetes mellitus without complications, R73.9 - Hyperglycemia, unspecified Microalbumin, Random (w Creat) Today E11.9 - Type 2 diabetes mellitus without complications, R73.9 - Hyperglycemia, unspecified Coding Level of Care Code Est Pt Level 4 (14313) Diagnoses Hyperglycemia R73.9 Type 2 diabetes mellitus without complications E11.9 Additional Codes Vital Signs *Quality* - Advance Care Planning discussion: Exists, not on file ([id number]) Vital Signs *Quality* - Time spent: 1-15 minutes, not on file ([id number])
[2023-02-17 08:14] VITALS: BP 130/62; PULSE 67; O2SAT 97; BMI 29.4
== END 2023-02-17 08:28 | disposition home or self-care (01) ==
PROVIDERS: Visit Provider Internal Medicine
DX: E11.65 Type 2 diabetes mellitus with hyperglycemia (principal); Z00.00 Encounter for general adult medical examination without abnormal findings
CPT/HCPCS: 1124F; 83036; 99214

== ENCOUNTER 2023-04-07 11:29 | Outpatient (REF) | payer OTHER, SELFPAY | END 2023-04-07 11:30 | disposition home or self-care (01) | LOC: HO.HOSX 11:29 | PROVIDERS: Visit Provider Orthopaedic Surgery | DX: Z13.89 Encounter for screening for other disorder (principal) ==

== ENCOUNTER 2023-04-14 12:47 | Outpatient (REF) | payer OTHER, SELFPAY ==
--- NOTE | ~2023-04-14 | XR_ITS ---
EXAMINATION: XR HIP, RIGHT XR HIP, LEFT WITH PELVIS CLINICAL INFORMATION: Bilateral hip pain. COMPARISON: 04/07/2022 TECHNIQUE: Single view pelvis with 2 additional views each hip. FINDINGS: Again noted are bilateral hip prostheses. Prostheses appear in good position with hardware intact. There is no evidence of loosening or fracture. Compared to the 04/07/2022 study, there has been no significant interval change. XR/XR hip LT w PEL1V IMPRESSION: Bilateral hip prostheses in good position.
--- NOTE | ~2023-04-14 | XR_ITS ---
EXAMINATION: XR HIP, RIGHT XR HIP, LEFT WITH PELVIS CLINICAL INFORMATION: Bilateral hip pain. COMPARISON: 04/07/2022 TECHNIQUE: Single view pelvis with 2 additional views each hip. FINDINGS: Again noted are bilateral hip prostheses. Prostheses appear in good position with hardware intact. There is no evidence of loosening or fracture. Compared to the 04/07/2022 study, there has been no significant interval change. XR/XR hip RT min 2V IMPRESSION: Bilateral hip prostheses in good position.
== END 2023-04-14 12:48 | disposition home or self-care (01) ==
LOC: HO.HOSX 12:47
PROVIDERS: Visit Provider Physician Assistant
DX: Z96.643 Presence of artificial hip joint, bilateral (principal)
CPT/HCPCS: 73502; 99212

== ENCOUNTER 2023-04-14 15:09 | Outpatient (AMB) | payer OTHER, SELFPAY ==
--- NOTE | 2023-04-14 15:11 | A.OFFVIS_ITS ---
Intake Vital Signs 04/14/23 15:25 Height 5 ft 6 in Weight 182 lb BMI 29.4 Intake Visit Reasons: OV- Yearly follow up RT ANA PAULA 05/2019, L ANA PAULA 11/2018 Intake Note: Willi a 71 year old male who presents today for a yearly follow up s/p rt ANA PAULA 05/2019, LT ANA PAULA 11/2018. Patient reports he is doing well, states no concerns today. Allergies oxycodone [OXYCODONE] Adverse Reaction (Severe, Verified 04/14/23 15:25) SEVERE VOMITNG HPI OV- Yearly follow up RT ANA PAULA 05/2019, L ANA PAULA 11/2018 HPI Details 72-year-old male who returns to the [facility] today for an yearly follow- up of right ANA PAULA, 05/2019 & left ANA PAULA, 11/2018. He states he has no pain and is doing well overall. He has no concerns today. [facility] Medical History Back pain Benign essential hypertension Cataract Coronary artery disease Hx of gout Lab test negative for COVID-19 virus On beta timoteo at home Osteoarthritis of hips, bilateral Overweight (BMI 25.0-29.9) Pure hypercholesterolemia Type 2 diabetes mellitus without complications Surgical History H/O tooth extraction History of cataract surgery Hx of coronary angioplasty History of right hip replacement History of colonoscopy History of hip replacement Family History Father Diabetes Kidney failure Mother Colon cancer Social History Housing: House Are you a primary career development counselor to a significant other at home: No Do you presently have visiting nurse or other home services: No Alcohol intake: current Alcohol intake frequency: holidays/special occasions only Patient Tobacco Use Status: Former Tobacco user Quit Date: 1996 Tobacco use type: Cigarette e-Cigarette/Vaping Use: Never Used Second Hand Smoke Exposure: No service: Yes Current occupational status: retired Cognitive needs: Yes (cane) Hearing needs: No Vision needs: Yes (reading glasses) Review of Systems Const All systems reviewed & are unremarkable except as noted in HPI and below Physical Exam Vital Signs: BMI result Body Mass Index 29.4 Const General: cooperative and no acute distress Orientation/consciousness: patient oriented x3 Resp Effort & Inspection: normal respiratory effort and able to speak in complete sentences Cardio Peripheral pulses: Peripheral pulses 2+ throughout Neuro General: patient oriented x3 Extrem Other: Bilateral hip: Normal to inspection. He has full ROM without pain. He can perform hip flexion without pain and walks with a cane at baseline. Results Reviewed Results Reviewed: xrays of bilat hips obtained in the office today Bilateral ANA PAULA in expected post operative position with no hardware complications or evidence of loosening Assessment & Plan Assessment & Plan (1) Status post total hip replacement, right: Code(s): Z96.641 - Presence of right artificial hip joint (2) History of hip replacement: Comment: 11/2018 left hip, 05/[address] Sahu Code(s): Z96.649 - Presence of unspecified artificial hip joint Qualifiers: Laterality: bilateral Qualified Code(s): Z96.643 - Presence of artificial hip joint, bilateral Plan He will maintain working on exercises as needed for strengthening. He struggles balance with baseline. Since he is more than 2 years post-op, he does not require antibiotics prophylaxis for dental visits. He will see us back as needed as symptoms arise. Patient Instructions: Scribed for Ashlyn Birmingham PA-C, by Terry Jensen emergency medical tech, on 04/14/2023 at 3:15 PM [place]. Ashlyn Cain PA-C, have personally reviewed and agree with the information entered by the scribe. Coding Level of Care Code Est Pt Level 3 (78317) Diagnoses Status post total hip replacement, right Z96.641 History of bilateral hip replacements Z96.643 Laterality: bilateral
[2023-04-14 15:25] VITALS: BMI 29.4
== END 2023-04-14 15:38 | disposition home or self-care (01) ==
PROVIDERS: PCP Internal Medicine; Visit Provider Physician Assistant
DX: Z47.1 Aftercare following joint replacement surgery (principal); Z96.643 Presence of artificial hip joint, bilateral
CPT/HCPCS: 99213

== ENCOUNTER 2023-06-27 08:57 | Outpatient (AMB) | payer OTHER, SELFPAY ==
--- NOTE | 2023-06-27 09:04 | A.OFFVIS_ITS ---
Intake Vital Signs 06/27/23 09:05 Height 5 ft 6 in Weight 185 lb 3.013 oz BMI 29.9 BP 140/70 H Blood Pressure Location Lt brachial Position Sitting Pulse 57 Intake Visit Reasons: 1 yr f/up Intake Note: pt its here for his 1 yr f/up/ pt states that he its doing fine Accountant Certified Public Required: No Accompanied by: Self / Same As Patient Allergies oxycodone [OXYCODONE] Adverse Reaction (Severe, Verified 04/14/23 15:25) SEVERE VOMITNG Medication List - Last Reconciled 06/27/23 by Eliane Harris, DION-C aspirin (Adult Aspirin Regimen) 81 mg PO DAILY blood sugar diagnostic (FreeStyle Lite Strips) As directed test blood glucose 1- 2 times daily blood-glucose meter (FreeStyle Lite Meter kit) As directed test blood glucose daily indomethacin 50 mg PO BID PRN lancets (FreeStyle Lancets) As directed test blood glucose 1-2 times a day lisinopril 10 mg PO DAILY metformin 500 mg PO BID metoprolol tartrate 50 mg PO BID pioglitazone 15 mg PO DAILY rosuvastatin 20 mg PO DAILY HPI 1 yr f/up HPI Details Willi is a 72-year-old male with past medical history of hypertension, hyperlipidemia, diabetes, coronary artery disease with stents placed in 1996 who presents for follow-up. Today he reports he has been feeling well since his last visit 06/10/2022. He denies any chest discomfort at rest or with activity. No heart palpitations, shortness of breath, lightheadedness, presyncope, syncope, falls, PND, orthopnea or edema. He has history of bilateral hip replacements. He uses a cane just for balance. Reports good activity tolerance and is busy with his 5 grandchildren. Takes his meds as directed. [facility] Medical History On beta timoteo at home Type 2 diabetes mellitus without complications Lab test negative for COVID-19 virus Hx of gout Back pain Overweight (BMI 25.0-29.9) Osteoarthritis of hips, bilateral Benign essential hypertension Pure hypercholesterolemia Coronary artery disease Cataract Surgical History H/O tooth extraction History of cataract surgery Hx of coronary angioplasty History of right hip replacement History of colonoscopy History of hip replacement Family History Father Diabetes Kidney failure Mother Colon cancer Social History Housing: House Are you a primary career development associate to a significant other at home: No Do you presently have visiting nurse or other home services: No Alcohol intake: current Alcohol intake frequency: holidays/special occasions only Patient Tobacco Use Status: Former Tobacco user Quit Date: 1996 Tobacco use type: Cigarette e-Cigarette/Vaping Use: Never Used Second Hand Smoke Exposure: No service: Yes Current occupational status: retired Cognitive needs: Yes (cane) Hearing needs: No Vision needs: Yes (reading glasses) Review of Systems Const All systems reviewed & are unremarkable except as noted in HPI and below Denies chills, Denies fatigue, Denies fever(s), Denies frequent falls, Denies weakness, Denies weight gain and Denies weight loss ENT Denies dizziness Card Denies chest pain, Denies leg edema, Denies lightheadedness, Denies palpitations, Denies dyspnea and Denies dyspnea on exertion Resp Denies cough, Denies dyspnea and Denies dyspnea on exertion GI Denies hematochezia Musc Denies abnormal gait, Denies muscle weakness, Denies numbness, Denies radiating pain into limb and Denies tingling Neuro Denies abnormal gait, Denies dizziness, Denies frequent falls, Denies numbness, Denies tingling and Denies weakness Endo Denies fatigue and Denies palpitations Physical Exam Vital Signs: Last Vital Signs Pulse 57 06/27/23 09:05 BP 140/70 H 06/27/23 09:05 BMI result Body Mass Index 29.9 Const General: cooperative, healthy appearing, comfortable and no acute distress Orientation/consciousness: patient oriented x3 HEENT Head: Yes normal to inspection Neck Neck: Yes normal visual inspection Resp Effort & Inspection: normal respiratory effort Auscultation: clear to auscultation bilaterally, no crackles, no rales, no rhonchi and no wheezes Cardio Jugular venous distension: no JVD Rate: regular rate Rhythm: regular rhythm Heart sounds: S1 normal heart sound present, S2 normal heart sound present, no gallops, no murmurs and no rubs Peripheral pulses: Peripheral pulses 2+ throughout Neuro General: patient oriented x3 Extrem General: Yes normal to inspection, No no pedal edema and No calf tenderness Psych Appearance: grossly normal Mental Status: mental status grossly normal Speech and movement: Normal speech and movement present Office Procedures EKG Details: Today, read by me, sinus bradycardia, rate 57, QTC 399 millisecond [id number], Complete Assessment & Plan Assessment & Plan (1) Coronary artery disease: Comment: angioplasty w/stent X2-1996- Foll'd by Dr. Covarrubias Code(s): I25.10 - Atherosclerotic heart disease of [place] coronary artery without angina pectoris Qualifiers: Associated angina: without angina Coronary Disease-Associated Artery/Lesion type: [place] artery [place] vs. transplanted heart: [place] heart Qualified Code(s): I25.10 - Atherosclerotic heart disease of [place] coronary artery without angina pectoris Plan: History of CAD with angioplasty and stents placed 1996. Last cardiac stress test in 2002 with good activity tolerance and no ischemia. EKG done today shows sinus bradycardia, rate 57. He has no reports of anginal sounding symptoms. He does have a history of diabetes which affect his ability to have typical anginal symptoms. Will update an exercise stress test and echocardiogram. Plan to call him with results. Continue aspirin, rosuvastatin, metoprolol. Cardiology follow-up in 1 year, sooner if needed. (2) Benign essential hypertension: Code(s): I10 - Essential (primary) hypertension Plan: Mildly elevated today. He says he did not take his medications prior to coming to this visit. Typically takes them with breakfast and he has not eaten yet. At present will continue on current metoprolol and lisinopril. (3) Pure hypercholesterolemia: Code(s): E78.00 - Pure hypercholesterolemia, unspecified Plan: LDL goal less than 70. Last labs done 07/30/2022 showed LDL 81. Continue rosuvastatin. Informed him he is due for repeat fasting labs. He says he has a PCP follow-up in August and will be having labs prior to that time. If LDL remains elevated then Zetia should be added. Will forward this note to his PCP. Plan Time spent on chart review, documentation, interview and assessment Orders: Orders CA stress test Today I25.10 - Atherosclerotic heart disease of [place] coronary artery without angina pectoris CA echo transthoracic complete Today I25.10 - Atherosclerotic heart disease of [place] coronary artery without angina pectoris Coding Level of Care Code Est Pt Level 4 (14902) Diagnoses Coronary artery disease involving [place] coronary artery of [place] heart without angina pectoris I25.10 Associated angina: without angina Coronary Disease-Associated Artery/Lesion type: [place] artery [place] vs. transplanted heart: [place] heart Benign essential hypertension I10 Pure hypercholesterolemia E78.00 CPT Codes EKG - CPT: 55472-[id number], Complete ([id number]) Time Spent (min) 28
[2023-06-27 09:05] VITALS: BP 140/70; PULSE 57; BMI 29.9
== END 2023-06-27 09:34 | disposition home or self-care (01) ==
PROVIDERS: PCP Internal Medicine; Visit Provider Nurse Practitioner Family
DX: I25.10 Atherosclerotic heart disease of native coronary artery without angina pectoris (principal); I10 Essential (primary) hypertension; E78.00 Pure hypercholesterolemia, unspecified
CPT/HCPCS: 93010; 99214

== ENCOUNTER → 2023-06-27 08:57 | Outpatient (BNVA) | payer OTHER, SELFPAY | PROVIDERS: PCP Internal Medicine; Visit Provider Nurse Practitioner Family | DX: I25.10 Atherosclerotic heart disease of native coronary artery without angina pectoris (principal); I10 Essential (primary) hypertension; E78.00 Pure hypercholesterolemia, unspecified | CPT/HCPCS: 93005; 99212 ==

== ENCOUNTER 2023-08-16 09:00 | Outpatient (REF) | payer OTHER, SELFPAY ==
[2023-08-16 10:15] LABS: Hematocrit 42.6 % (42.0-52.0); Mean Corpuscular HGB Conc 32.9 g/dl (31.0-36.0); Mean Corpuscular Hemoglobin 27.9 pg (27.0-33.0); Mean Corpuscular Volume 84.9 fL (80.0-98.0); Mean Platelet Volume 9.9 fL (9.4-12.4); Platelet Count 268 X10*3/uL (160-400); Red Blood Count 5.02 X10*6/uL (4.60-5.80); Red Cell Distribution Width 14.1 % (11.0-16.0); White Blood Count 12.1 X10*3/uL (4.8-10.8)
[2023-08-16 10:21] LABS: Estimated Average Glucose 143 mg/dL; Hemoglobin A1c % 6.6 % (<6.0)
[2023-08-16 11:45] LABS: Alanine Aminotransferase 19 U/L (0-40); Albumin Level 4.2 g/dL (3.5-5.0); Alkaline Phosphatase 107 U/L (39-117); Anion Gap 14 (12-20); Aspartate Amino Transferase 20 U/L (5-37); Bilirubin Direct 0.1 mg/dL (0.0-0.5); Bilirubin Total 0.5 mg/dL (0.0-1.0); Blood Urea Nitrogen 16 mg/dL (9-16); Calcium 9.8 mg/dL (8.4-10.2); Carbon Dioxide 27 mmol/L (22-29); Chloride 104 mmol/L (96-108); Cholesterol 155 mg/dL (<200); Estimated Glomerular Filt Rate > 60; Glucose Random 134 mg/dL (60-115); HDL Cholesterol 37 mg/dL (>40); LDL Cholesterol Calculated 70 mg/dL (<100); Potassium 4.2 mmol/L (3.3-5.1); Sodium 141 mmol/L (135-145); Thyroid Stimulating Hormone 1.14 uIU/mL (0.32-4.0); Total Protein 7.6 g/dL (6.5-8.0); Triglycerides 244 mg/dL (<150)
[2023-08-16 14:05] LABS: Appearance Urine Clear; Color Urine Yellow; Glucose Urine UA Negative (Negative); Leukocyte Esterase Urine Negative (Negative); Nitrite Urine Negative (Negative); PH 5.5 (5.0-9.0); Urine Blood Negative (Negative); Urine Ketones Negative (Negative); Urine Protein Negative (Neg-Trace)
[2023-08-16 14:47] LABS: Creatinine Urine 195.88 mg/dL; Microalbum/Creatinine Ratio Ur 15.8 ug/mg cr (<30)
== END 2023-08-16 09:01 | disposition home or self-care (01) ==
LOC: HO.LAB 09:00
PROVIDERS: PCP Internal Medicine; Visit Provider Internal Medicine
DX: E11.65 Type 2 diabetes mellitus with hyperglycemia (principal)
CPT/HCPCS: 36415; 80048; 80061; 80076; 81003; 82043; 82570; 83036; 84443; 85027

== ENCOUNTER 2023-08-18 09:10 | Outpatient (AMB) | payer OTHER, SELFPAY ==
--- NOTE | 2023-08-18 09:26 | A.OFFPC_ITS ---
Vital Signs 08/18/23 09:29 Height 5 ft 6 in Weight 183 lb BMI 29.5 BP 130/76 Blood Pressure Location Lt brachial Position Sitting Pulse 82 Pulse Source Pulse Oximeter Pulse Oximetry (%) 98 Oxygen Delivery Method Room Air Intake Visit Reasons: 6mth f/u Intake Note: Patient is here to follow up on DM, HTN, CAD, Hypercholesterolemia. Diamond Grader Required: No Dairy Feed Worker: Not Required per policy Accompanied by: Self / Same As Patient Allergies oxycodone [OXYCODONE] Adverse Reaction (Severe, Verified 08/18/23 10:20) SEVERE VOMITNG Medication List - Last Reconciled 08/18/23 by Andriy Reid MD aspirin (Adult Aspirin Regimen) 81 mg PO DAILY blood sugar diagnostic (FreeStyle Lite Strips) As directed test blood glucose 1- 2 times daily blood-glucose meter (FreeStyle Lite Meter kit) As directed test blood glucose daily indomethacin 50 mg PO BID PRN lancets (FreeStyle Lancets) As directed test blood glucose 1-2 times a day lisinopril 10 mg PO DAILY metformin 500 mg PO BID metoprolol tartrate 50 mg PO BID pioglitazone 15 mg PO DAILY rosuvastatin 20 mg PO DAILY Tobacco use date assessed: 08/18/23 Fall risk assessment: No Falls in past year Last assessed Fall Risk: 08/18/23 Dental Screening Dental Screen Date: 08/18/23 Did you have a dental visit in the last 12 months?: Yes Did you have a dental problem in the last 6 months where you did not have access to dental care?: No Was dental information given to patient?: Patient has dentist HPI 6mth f/u HPI Details 72-year-old male presents to the office for a follow-up visit. Since June, patient is complaining of low back pain and right knee pain. Symptoms started after he participated in a dance competition and slept on a stiff bed. Pain is in the lower back and radiating into the right leg. Intermittent in nature, he has several pain-free days followed by the return of pain. No difficulty in urination. He has history of gout before. Patient had blood work done recently and is curious to know about his diabetes results. He is compliant with medications and reporting no side effects. Able to function and do all activities of daily living. [facility] Medical History On beta timoteo at home Type 2 diabetes mellitus without complications Lab test negative for COVID-19 virus Hx of gout Back pain Overweight (BMI 25.0-29.9) Osteoarthritis of hips, bilateral Benign essential hypertension Pure hypercholesterolemia Coronary artery disease Cataract Surgical History H/O tooth extraction History of cataract surgery Hx of coronary angioplasty History of right hip replacement History of colonoscopy History of hip replacement Family History Father Diabetes Kidney failure Mother Colon cancer Social History Housing: House Are you a primary caretaker resort to a significant other at home: No Do you presently have visiting nurse or other home services: No Alcohol intake: current Alcohol intake frequency: holidays/special occasions only Patient Tobacco Use Status: Former Tobacco user Quit Date: 1996 Tobacco use type: Cigarette e-Cigarette/Vaping Use: Never Used Second Hand Smoke Exposure: No service: Yes Current occupational status: retired Cognitive needs: Yes (cane) Hearing needs: No Vision needs: Yes (reading glasses) Questionnaire PHQ-9 Over the last 2 weeks, how often have you been bothered by any of the following problems? 1. Little interest or pleasure in doing things: not at all 2. Feeling down, depressed, or hopeless: not at all 3. Trouble falling or staying asleep, or sleeping too much: not at all 4. Feeling tired or having little energy: not at all 5. Poor appetite or overeating: not at all 6. Feeling bad about yourself - or that you are a failure or have let yourself or your family down: not at all 7. Trouble concentrating on things, such as reading the newspaper or watching television: not at all 8. Moving or speaking so slowly that other people could have noticed. Or the opposite - being so fidgety or restless that you have been moving around a lot more than usual: not at all 9. Thoughts that you would be better off or of hurting yourself in some way: not at all Total score: 0 Depression Screening Interpretation: Negative Depression Screening Done: Yes Source: Developed by Drs. Panda Yun, Yesenia Benz, Johnson Bedoya and colleagues, with an educational batool from [employer]. Thrive Questionnaire Date Thrive assessed: 08/18/23 I am a: Patient What is your living situation today?: I have a steady place to live Within the past 12 months, did the food you bought not last and you didn't have the money to get more?: Never true Within the past 12 months, did you worry whether your food would run out before you got money to buy more?: Never true Do you have trouble paying for medicines?: No Do you have trouble getting transportation to medical appointments?: No Do you have trouble paying your heating and electricity bill?: No Do you have trouble taking care of your child, family member or friend?: No Do you have trouble with day-to-day activities such as bathing, preparing meals, shopping, managing finances, etc.?: No Are you currently unemployed and looking for a job?: No Are you interested in more education?: No Currently or been in a relationship where the following occur: no concerns reported THRIVE Score: 0 AUDIT C Alcohol Use Questionnaire (AUDIT-C) 1. How often do you have a drink containing alcohol?: Monthly or less 2. How many drinks containing alcohol do you have on a typical day when you are drinking?: 1 or 2 Total Score: 1 ALEXIS-7 AMB Questionnaire ALEXIS-7 Date ALEXIS - 7 assessed: 08/18/23 Feeling nervous, anxious, or on edge: 0 = Not at all Not being able to stop or control worryin = Not at all Worrying too much about different things: 0 = Not at all Trouble relaxin = Not at all Being so restless that it is hard to sit still: 0 = Not at all Becoming easily annoyed or irritable: 0 = Not at all Feeling afraid as if something awful might happen: 0 = Not at all Total ALEXIS-7 score (0-4 normal; 5-9 mild; 10-14 moderate; 15-21 severe): 0 Source: Developed by Drs. Panda Yun, Johnson Tee and colleagues, with an educational batool from [employer]. Physical exam (Primary Care) Vital Signs: Last Vital Signs Pulse 82 08/18/23 09:29 BP 130/76 08/18/23 09:29 Pulse Ox 98 08/18/23 09:29 Oxygen Delivery Method Room Air 08/18/23 09:29 BMI result Body Mass Index 29.5 Tobacco/Smoking Status: Tobacco use Status Tobacco use date assessed 08/18/23 08/18/23 09:35 Patient Tobacco Use Status Former Tobacco user 08/18/23 09:26 Tobacco use type Cigarette 08/18/23 09:26 e-Cigarette/Vaping Use Never Used 08/18/23 09:26 PHQ-9: PHQ-9 Score PHQ-9: Total score 0 08/18/23 09:35 Depression Screening Interpretation: Negative Thrive Assessment: Date of Thrive Assessment Date Thrive assessed 08/18/23 08/18/23 09:35 Currently or been in a relationship where the following occur: no concerns reported Const General: cooperative and healthy appearing Nutritional Appearance: well nourished Orientation/consciousness: patient oriented x3 Limitations: no limitations HENMT Head: Yes normal to inspection Eyes General: appearance normal, both eyes and all related structures Neck Neck: Yes normal visual inspection Chest Chest palpation & inspection: normal palpation of entire chest wall Resp Effort & Inspection: normal respiratory effort Neuro General: patient oriented x3 Extrem Other: Right knee: Skin over the right knee is warm. Tenderness in the suprapatellar area. Range of motion in the knee is adequate. Assessment and Plan Assessment & Plan (1) Type 2 diabetes mellitus without complications: Code(s): E11.9 - Type 2 diabetes mellitus without complications Plan: A1c is in range. Continue medications at same dosage. Blood work reviewed with patient. (2) Suprapatellar bursitis of right knee: Code(s): M70.51 - Other bursitis of knee, right knee Plan: Indomethacin, a drug patient has had good relief with has been ordered to reduce inflammation. Will try this medication for 7 days. Patient was advised to follow-up if symptoms are recurring. Coding Level of Care Code Est Pt Level 4 (33741) Diagnoses Type 2 diabetes mellitus without complications E11.9 Suprapatellar bursitis of right knee M70.51
[2023-08-18 09:29] VITALS: BP 130/76; PULSE 82; O2SAT 98; BMI 29.5
== END 2023-08-18 10:11 | disposition home or self-care (01) ==
PROVIDERS: PCP Internal Medicine; Visit Provider Internal Medicine
DX: E11.9 Type 2 diabetes mellitus without complications (principal); M70.51 Other bursitis of knee, right knee
CPT/HCPCS: 99214

== ENCOUNTER 2024-02-23 08:55 | Outpatient (AMB) | payer OTHER, SELFPAY ==
--- NOTE | 2024-02-23 09:00 | A.OFFPC_ITS ---
Vital Signs 02/23/24 09:01 Height 5 ft 6 in Weight 183 lb BMI 29.5 BP 130/72 Blood Pressure Location Lt brachial Position Sitting Pulse 58 Pulse Source Pulse Oximeter Pulse Oximetry (%) 98 Oxygen Delivery Method Room Air Intake Visit Reasons: 6mth f/u-see comm Intake Note: Patient is here to follow up on DM, HTN, CAD, Hypercholesterolemia. Audio Production Instructor Required: No Senior Tax Specialist: Present Accompanied by: Spouse Allergies oxycodone [OXYCODONE] Adverse Reaction (Severe, Verified 03/01/24 16:41) SEVERE VOMITNG Medication List - Last Reconciled 03/01/24 by Andriy Reid MD aspirin (Adult Aspirin Regimen) 81 mg PO DAILY blood sugar diagnostic (FreeStyle Lite Strips) As directed test blood glucose 1- 2 times daily blood-glucose meter (FreeStyle Lite Meter kit) As directed test blood glucose daily cyclobenzaprine 10 mg PO BEDTIME indomethacin 50 mg PO BID PRN lancets (FreeStyle Lancets) As directed test blood glucose 1-2 times a day lisinopril 10 mg PO DAILY metformin 500 mg PO BID metoprolol tartrate 50 mg PO BID pioglitazone 15 mg PO DAILY rosuvastatin 20 mg PO DAILY Tobacco use date assessed: 02/23/24 Fall risk assessment: No Falls in past year Last assessed Fall Risk: 02/23/24 Dental Screening Dental Screen Date: 08/18/23 HPI 6mth f/u-see comm HPI Details 73-year-old male presents to the office to discuss his chronic medical conditions. Patient is compliant with medications and reporting no side effects. Able to function and do all activities of daily living. [facility] Medical History On beta timoteo at home Type 2 diabetes mellitus without complications Lab test negative for COVID-19 virus Hx of gout Back pain Overweight (BMI 25.0-29.9) Osteoarthritis of hips, bilateral Benign essential hypertension Pure hypercholesterolemia Coronary artery disease Cataract Surgical History H/O tooth extraction History of cataract surgery Hx of coronary angioplasty History of right hip replacement History of colonoscopy History of hip replacement Family History Father Diabetes Kidney failure Mother Colon cancer Social History Housing: House Are you a primary respiratory care instructor to a significant other at home: No Do you presently have visiting nurse or other home services: No Alcohol intake: current Alcohol intake frequency: holidays/special occasions only Patient Tobacco Use Status: Former Tobacco user Tobacco use type: Cigarette e-Cigarette/Vaping Use: Never Used Second Hand Smoke Exposure: No service: Yes Current occupational status: retired Cognitive needs: Yes (cane) Hearing needs: No Vision needs: Yes (reading glasses) Questionnaire Thrive Questionnaire Date Thrive assessed: 08/18/23 ALEXIS-7 AMB Questionnaire ALEXIS-7 Date ALEXIS - 7 assessed: 08/18/23 Source: Developed by Drs. Panda Yun, Yesenia Benz, Johnson Bedoya and colleagues, with an educational batool from [employer]. Physical exam (Primary Care) Vital Signs: Last Vital Signs Pulse 58 02/23/24 09:01 BP 130/72 02/23/24 09:01 Pulse Ox 98 02/23/24 09:01 Oxygen Delivery Method Room Air 02/23/24 09:01 BMI result Body Mass Index 29.5 Tobacco/Smoking Status: Tobacco use Status Tobacco use date assessed 02/23/24 02/23/24 09:12 Patient Tobacco Use Status Former Tobacco user 02/23/24 09:12 Tobacco use type Cigarette 02/23/24 09:12 e-Cigarette/Vaping Use Never Used 02/23/24 09:12 Thrive Assessment: Date of Thrive Assessment Date Thrive assessed 08/18/23 02/23/24 09:12 Const General: cooperative and healthy appearing Nutritional Appearance: well nourished Orientation/consciousness: patient oriented x3 Limitations: no limitations HENMT Head: Yes normal to inspection Eyes General: appearance normal, both eyes and all related structures Neck Neck: Yes normal visual inspection Chest Chest palpation & inspection: normal palpation of entire chest wall Resp Effort & Inspection: normal respiratory effort Neuro General: patient oriented x3 Results AMB Hemoglobin A1c AMB Hemoglobin A1c 6.5 % Last Edit by RICCI Maciel on 02/23/24 09:17 Results Reviewed Results Reviewed: Laboratory Last Values Hgb A1c (Clinic) 6.5 % (4.0-6.0) H 02/23/24 09:00 Coding Level of Care Code Est Pt Level 3 (36270) Complex EM visit Add On G2211 Diagnoses Type 2 diabetes mellitus without complications E11.9 Assessment & Plan Assessment & Plan (1) Type 2 diabetes mellitus without complications: Code(s): E11.9 - Type 2 diabetes mellitus without complications Category: Medical Plan: A1c is in range. Continue current medications. Orders: Orders AMB Hemoglobin A1c 02/23/24 E11.9 - Type 2 diabetes mellitus without complications
[2024-02-23 09:01] VITALS: BP 130/72; PULSE 58; O2SAT 98; BMI 29.5
== END 2024-02-23 09:33 | disposition home or self-care (01) ==
PROVIDERS: PCP Internal Medicine; Visit Provider Internal Medicine
DX: E11.9 Type 2 diabetes mellitus without complications (principal)

== ENCOUNTER → 2024-02-23 08:55 | Outpatient (BNVA) | payer OTHER, SELFPAY | PROVIDERS: PCP Internal Medicine; Visit Provider Internal Medicine | DX: E11.9 Type 2 diabetes mellitus without complications (principal) | CPT/HCPCS: 83036; 99212 ==

== ENCOUNTER 2024-06-08 12:29 | Outpatient (AMB) | payer OTHER, SELFPAY ==
[2024-06-08 12:47] VITALS: BP 132/60; PULSE 69; RESP 16; TEMP 36.6; O2SAT 97; BMI 29.0
--- NOTE | 2024-06-08 12:47 | AM.OFFWIN_ITS ---
Intake Vital Signs 06/08/24 12:47 Height 5 ft 6 in Weight 180 lb BMI 29.0 BP 132/60 Blood Pressure Location Lt brachial Position Sitting Respiration 16 Pulse 69 Pulse Source Pulse Oximeter Temp 97.8 F Temp Source Oral Pulse Oximetry (%) 97 Oxygen Delivery Method Room Air Intake Visit Reasons: EP numbness lt side of face, menthol taste Intake Note: Pt is here today c/o Lt side of facial feels numbness since last tuesday Patient Tobacco Use Status: Former Tobacco user Allergies oxycodone [OXYCODONE] Adverse Reaction (Severe, Verified 06/08/24 12:48) SEVERE VOMITNG Do you need a note to return to daycare/school/sports/work: No HPI EP numbness lt side of face, menthol taste HPI Details This is a 73-year-old male patient who presents to the walk-in clinic today with a left-sided facial numbness / tingling for the past 3 days. He re ports a sensation of menthol/cold through his right nostril. He denies any inciting events to this. States he had a few episodes this past Tuesday of a sharp pain on the left side of his nose and this radiated to his left cheek and neck. These have not recurred since then. Denies history of migraines. No recent viral illnesses. Swallowing/eating normally. Denies any vision changes. Denies any mouth pain or recent dental work. Denies any changes in medications. States hearing is intact. No tenderness of face/temporal area. No rashes. Denies weakness. [facility] Medical History On beta timoteo at home Type 2 diabetes mellitus without complications Lab test negative for COVID-19 virus Hx of gout Back pain Overweight (BMI 25.0-29.9) Osteoarthritis of hips, bilateral Benign essential hypertension Pure hypercholesterolemia Coronary artery disease Cataract Surgical History H/O tooth extraction History of cataract surgery Hx of coronary angioplasty History of right hip replacement History of colonoscopy History of hip replacement Family History Father Diabetes Kidney failure Mother Colon cancer Social History Housing: House Are you a primary long term care social worker to a significant other at home: No Do you presently have visiting nurse or other home services: No Alcohol intake: current Alcohol intake frequency: holidays/special occasions only Patient Tobacco Use Status: Former Tobacco user Tobacco use type: Cigarette e-Cigarette/Vaping Use: Never Used Second Hand Smoke Exposure: No service: Yes Current occupational status: retired Cognitive needs: Yes (cane) Hearing needs: No Vision needs: Yes (reading glasses) Review of Systems Const All systems reviewed & are unremarkable except as noted in HPI and below ENT Reports Normal hearing present Neuro Reports Normal hearing present Physical Exam Vital Signs: Last Vital Signs Temp 97.8 F 06/08/24 12:47 Pulse 69 06/08/24 12:47 Resp 16 06/08/24 12:47 BP 132/60 06/08/24 12:47 Pulse Ox 97 06/08/24 12:47 Oxygen Delivery Method Room Air 06/08/24 12:47 BMI result Body Mass Index 29.0 Const General: cooperative, healthy appearing, comfortable and no acute distress Orientation/consciousness: patient oriented x3 Limitations: no limitations HEENT Head: Yes normal to inspection Ears: hearing grossly normal bilaterally General nose exam: Normal external nose present Face and sinus: Yes normal facial exam and Yes face symmetric Mouth: Normal oral and palatal mucosa present Throat: Yes posterior oropharynx normal Eyes Alignment and Position: alignment normal Periorbital: periorbital findings normal Eyelids: Yes eyelids normal Pupils: Equal, round and reactive pupils present, Pupils normal by confrontation and Pupil accommodation reflex normal EOM: EOMs intact bilaterally Direct Ophthalmoscopy: normal light reflex and no photophobia Neck Neck: Yes no lymphadenopathy and Yes no JVD Resp Effort & Inspection: normal respiratory effort Auscultation: clear to auscultation bilaterally Cardio Rate: regular rate Rhythm: regular rhythm Skin General skin exam: no rashes or lesions noted Neuro General: patient oriented x3, gait normal, tone normal and moves all extremities Cranial nerves: Yes Equal, round and reactive pupils present, Yes Normal accommodation reflex present, Yes Bilaterally intact EOM present, Yes Normal facial strength present, Yes Midline tongue present, Yes Normal hearing present, Yes Ability to bilaterally rotate head present, Yes Ability to bilaterally elevate shoulders present and Yes Individual cranial nerve findings present VII: normal Cognition (Neuro): normal cognition Gait exam (Neuro): Normal gait present Motor exam (neuro): 5/5 motor strength present throughout Extrem General: Yes capillary refill normal and Yes no clubbing, cyanosis or edema Psych Appearance: grossly normal Mental Status: mental status grossly normal Speech and movement: Normal speech and movement present Affect: normal affect Attitude: cooperative Assessment & Plan Assessment & Plan (1) Numbness and tingling of left side of face: Code(s): R20.0 - Anesthesia of skin; R20.2 - Paresthesia of skin Plan: Patient has left-sided facial tingling / numbness since Tuesday. On exam, he has no neuro deficits. Subjective report of numbness/tingling. Neuro exam as noted above. There is no jaw pain or facial tenderness to suggest temporal arteritis. No rash to suggest zoster. Possible migraine. Will start on a steroid taper and advised patient to f/u with PCP. We reviewed indications, use, possible side effects of medication. However, we had a thorough discussion that if symptoms worsen /any increase in weakness occur, or if he notices any sort of facial drooping, vision changes, or tenderness to touch, he should go to the emergency department promptly for evaluation. All questions were answered and patient verbalizes understanding and agrees to plan. Medications: New methylprednisolone PO PER PKG DIR for 6 days 21 ea 0RF R20.0 - Anesthesia of skin, R20.2 - Paresthesia of skin Coding Level of Care Code Est Pt Level 4 (53283) Diagnoses Numbness and tingling of left side of face R20.0; R20.2
--- OUTSIDE RECORDS SUMMARY | 2024-06-08 14:06 | XMS_ITS | Continuity of Care Document ---
Author Name [facility] Organization [facility] Care Team Providers Care Silk Screen Printer Name Role Phone [facility] Unavailable Unavailable Problems Combined list of problems from Department of Defense and Veterans Affairs facilities. It does not include entries that were removed or entered in error. Problem Status Onset Date Problem Type Date of Resolution Comments Source Diagnosis: ICD-10-CM Z02.89 Encounter for other administrative examinations Active Diagnosis [facility] [place] [facility] Immunizations Combined list of available immunizations from the Department of Defense and Veterans Affairs facilities. Immunization Series Date Given Administered By Site Reaction Lot Number CVX Code Drug [employer] Tutor Status Comments Source influenza virus vaccine, split virus (incl. purified surface antigen)-reti red CODE 1 2004 Unknown, Provider [id number] Sanofi Pasteur (PMC) complet ed influenza virus vaccine, split virus (incl. purified surface antigen)- retired CODE DoD influenza virus vaccine, whole virus 1 2002 Unknown, Provider [id number] [employer] (PWJ) complet ed influenza virus vaccine, whole virus DoD tuberculin skin test; purified protein derivative solution, intradermal 1 2002 Unknown, Provider [id number] Sanofi Pasteur (PMC) complet ed tuberculi n skin test; purified protein derivativ e solution, intraderm al DoD influenza virus vaccine, whole virus 1 2002 Unknown, Provider [id number] 16 [employer] (PWJ) complet ed influenza virus vaccine, whole virus DoD influenza virus vaccine, whole virus 1 2001 Unknown, Provider [id number] 16 Sanofi Pasteur (PMC) complet ed influenza virus vaccine, whole virus DoD meningococcal polysaccharid e vaccine (MPSV4) 1 2001 Unknown, Provider [id number] Sanofi Pasteur (PMC) complet ed meningoco ccal polysacch aride vaccine (MPSV4) DoD typhoid vaccine, parenteral, other than acetone-kille d, dried 1 2001 Unknown, Provider [id number] Sanofi Pasteur ([facility]MC) complet ed typhoid vaccine, parentera l, other than acetone-k illed, dried DoD tuberculin skin test; purified protein derivative solution, intradermal 1 2001 Unknown, Provider [id number] [facility]) complet ed tuberculi n skin test; purified protein derivativ e solution, intraderm al DoD hepatitis B vaccine, adult dosage 3 2001 Unknown, Provider [id number] Merck ([facility]) complet ed hepatitis B vaccine, adult dosage DoD influenza virus vaccine, whole virus 1 2000 Unknown, Provider [id number] 16 [facility] ([facility]) complet ed influenza virus vaccine, whole virus DoD hepatitis B vaccine, adult dosage 2 2000 Unknown, Provider [id number] Merck ([facility]) complet ed hepatitis B vaccine, adult dosage DoD yellow fever vaccine 1 2000 Unknown, Provider [id number] [facility] ([facility]) complet ed yellow fever vaccine DoD hepatitis B vaccine, adult dosage 1 2000 Unknown, Provider [id number] Merck (MSD) complet ed hepatitis B vaccine, adult dosage DoD tuberculin skin test; purified protein derivative solution, intradermal 1 2000 Unknown, Provider [id number] [facility] ([facility]) complet ed tuberculi n skin test; purified protein derivativ e solution, intraderm al DoD influenza virus vaccine, whole virus 2 1999 Unknown, Provider [id number] 16 Agustín ([facility]) complet ed influenza virus vaccine, whole virus DoD typhoid vaccine, parenteral, other than acetone-kille d, dried 1 1999 Unknown, Provider [id number] Bello ([facility]) complet ed typhoid vaccine, parentera l, other than acetone-k illed, dried DoD influenza virus vaccine, whole virus 1 1998 Unknown, Provider [id number] 16 Agustín ([facility]) complet ed influenza virus vaccine, whole virus DoD tuberculin skin test; purified protein derivative solution, intradermal 1 1998 Unknown, Provider [id number] Bello (CON) complet ed tuberculi n skin test; purified protein derivativ e solution, intraderm al DoD tetanus and diphtheria toxoids, adsorbed, preservative free, for adult use (2 Lf of tetanus toxoid and 2 Lf of diphtheria toxoid) 1 1998 Unknown, Provider 09 Transcribed (TRS) complet ed tetanus and diphtheri a toxoids, adsorbed, preservat tavon free, for adult use (2 Lf of tetanus toxoid and 2 Lf of diphtheri a toxoid) DoD hepatitis A vaccine, adult dosage 2 1998 Unknown, Provider [id number] 52 SmithMckenna ([facility]) complet ed hepatitis A vaccine, adult dosage DoD measles, mumps and rubella virus vaccine 2 1997 Unknown, Provider [id number] Turner (AB) complet ed measles, mumps and rubella virus vaccine DoD influenza virus vaccine, whole virus 1 1997 Unknown, Provider [id number] 16 Bello (CON) complet ed influenza virus vaccine, whole virus DoD hepatitis A vaccine, adult dosage 1 1997 Unknown, Provider [id number] 52 [facility] (SKB) complet ed hepatitis A vaccine, adult dosage DoD tuberculin skin test; purified protein derivative solution, intradermal 1 1997 Unknown, Provider [id number] 96 Bello (CON) complet ed tuberculi n skin test; purified protein derivativ e solution, intraderm al DoD typhoid vaccine, parenteral, acetone-kille d, dried ([place] ) 2 1995 Unknown, Provider 53 () complet ed typhoid vaccine, parentera l, acetone-k illed, dried ([place] ) DoD tetanus and diphtheria toxoids, adsorbed, preservative free, for adult use (2 Lf of tetanus toxoid and 2 Lf of diphtheria toxoid) 1 1991 Unknown, Provider 09 () complet ed tetanus and diphtheri a toxoids, adsorbed, preservat tavon free, for adult use (2 Lf of tetanus toxoid and 2 Lf of diphtheri a toxoid) DoD yellow fever vaccine 1 1989 Unknown, Provider 37 () complet ed yellow fever vaccine DoD trivalent poliovirus vaccine, live, oral 1 1966 Unknown, Provider 02 () complet ed trivalent polioviru s vaccine, live, oral DoD Encounters Combined list of: 1) Encounters from Department of Veterans Affairs facilities going backup to the last 18 months, not all VA inpatient encounters are included; 2) Encounters from the Department of Defense facilities going backup to 280 months. Location Location Details Encounter Type Encounter Number Reason For Visit Attending Provider ADM Date DC Date Status Disposition Source [facility] Encounter [id number] Diagnos is: ICD-10- CM Z02.89 Encount er for other adminis trative examina BATOOL Luna 01/[address] [facility] [place] [facility] Social History Combined list of available smoking, tobacco, and other social history from Department of Defense and Veterans Affairs facilities. Social History Type Response Date Comment Sour e This section is an empty social history section. DoD
== END 2024-06-08 13:57 | disposition home or self-care (01) ==
PROVIDERS: PCP Internal Medicine; Visit Provider Nurse Practitioner Family
DX: R20.0 Anesthesia of skin (principal); R20.2 Paresthesia of skin

== ENCOUNTER → 2024-06-08 12:29 | Outpatient (BNVA) | payer OTHER, SELFPAY | PROVIDERS: PCP Internal Medicine; Visit Provider Nurse Practitioner Family | DX: R20.0 Anesthesia of skin (principal); R20.2 Paresthesia of skin | CPT/HCPCS: 99212 ==

== ENCOUNTER 2024-06-25 10:01 | Outpatient (AMB) | payer OTHER, SELFPAY ==
--- NOTE | 2024-06-25 10:16 | MHC.OFFVIS ---
Vital Signs 06/25/24 10:18 Height 5 ft 6 in Weight 183 lb 6.793 oz BMI 29.6 BP 150/64 H Blood Pressure Location Lt brachial Position Sitting Pulse 58 Pulse Source Monitor Intake Visit Reasons: 1 yr f/up Intake Note: 1 yr f/up Fundraising Officer Required: No Accompanied by: Self / Same As Patient Allergies oxycodone [OXYCODONE] Adverse Reaction (Severe, Verified 06/08/24 12:48) SEVERE VOMITNG Medication List - Last Reconciled 06/25/24 by Rohit Covarrubias MD aspirin (Adult Aspirin Regimen) 81 mg PO DAILY blood sugar diagnostic (FreeStyle Lite Strips) As directed test blood glucose 1-2 times daily blood-glucose meter (FreeStyle Lite Meter kit) As directed test blood glucose daily indomethacin 50 mg PO BID PRN lancets (FreeStyle Lancets) As directed test blood glucose 1-2 times a day lisinopril 10 mg PO DAILY metformin 500 mg PO BID metoprolol tartrate 50 mg PO BID pioglitazone 15 mg PO DAILY rosuvastatin 20 mg PO DAILY HPI Comments Details: Pleasant 73-year-old gentleman here for follow-up. He was seen for perioperative cardiovascular risk assessment in the past. He is status post surgery and has been doing well. No chest pain or shortness of breath. His blood pressure control is good. EKGs also normal in the office. Overall doing well and has no complaints on follow-up. He has remote history of PCI in . Clinically stable on follow-up. Taking medications regularly. 06/25/2024: Here for follow-up. Denying any chest discomfort shortness of breath. His blood pressure is elevated in the office he has not checked it at home recently. He is currently taking metoprolol tartrate 50 mg twice a day, lisinopril 10 mg daily. He is on baby aspirin and rosuvastatin 20 mg daily. [facility] Medical History On beta timoteo at home Type 2 diabetes mellitus without complications Lab test negative for COVID-19 virus Hx of gout Back pain Overweight (BMI 25.0-29.9) Osteoarthritis of hips, bilateral Benign essential hypertension Pure hypercholesterolemia Coronary artery disease Cataract Surgical History H/O tooth extraction History of cataract surgery Hx of coronary angioplasty History of right hip replacement History of colonoscopy History of hip replacement Family History Father Diabetes Kidney failure Mother Colon cancer Social History Housing: House Are you a primary infant caregiver to a significant other at home: No Do you presently have visiting nurse or other home services: No Alcohol intake: current Alcohol intake frequency: holidays/special occasions only Patient Tobacco Use Status: Former Tobacco user Tobacco use type: Cigarette e-Cigarette/Vaping Use: Never Used Second Hand Smoke Exposure: No service: Yes Current occupational status: retired Cognitive needs: Yes (cane) Hearing needs: No Vision needs: Yes (reading glasses) Review of Systems Const Denies chills, Denies fatigue, Denies fever(s), Denies frequent falls, Denies weakness, Denies weight gain and Denies weight loss ENT Denies dizziness Card Denies chest pain, Denies leg edema, Denies lightheadedness, Denies palpitations, Denies dyspnea and Denies dyspnea on exertion Resp Denies cough, Denies dyspnea and Denies dyspnea on exertion GI Denies hematochezia Musc Denies abnormal gait, Denies muscle weakness, Denies numbness, Denies radiating pain into limb and Denies tingling Neuro Denies abnormal gait, Denies dizziness, Denies frequent falls, Denies numbness, Denies tingling and Denies weakness Endo Denies fatigue and Denies palpitations Physical Exam Vital Signs: Last Vital Signs Pulse 58 06/25/24 10:18 BP 150/64 H 06/25/24 10:18 BMI result Body Mass Index 29.6 GENERAL APPEARANCE: in no acute distress, pleasant. NECK: no carotid bruit, no jugular venous distention. SKIN: no suspicious lesions, warm and dry. HEART: no murmurs, regular rate and rhythm. LUNGS: clear to auscultation bilaterally. ABDOMEN: soft, nontender. EXTREMITIES: no edema. PERIPHERAL PULSES: equal. NEUROLOGIC: No gross deficits, AAO X 3 Office Procedures EKG Details: Sinus bradycardia, 58/min, QTc 390 msec. [id number], Complete Assessment & Plan Assessment & Plan (1) Benign essential hypertension: Code(s): I10 - Essential (primary) hypertension Category: Medical (2) Pure hypercholesterolemia: Code(s): E78.00 - Pure hypercholesterolemia, unspecified Category: Medical (3) Coronary artery disease: Comment: angioplasty w/stent X2-1996- Foll'd by Dr. Covarrubias Code(s): I25.10 - Atherosclerotic heart disease of [place] coronary artery without angina pectoris Category: Medical Qualifiers: Coronary Disease-Associated Artery/Lesion type: [place] artery [place] vs. transplanted heart: [place] heart Associated angina: without angina Qualified Code(s): I25.10 - Atherosclerotic heart disease of [place] coronary artery without angina pectoris Plan Pleasant 73 year gentleman who is here for follow-up. He has known history of coronary disease with previous angioplasty in 1996. He has not complained of any exertional symptoms on follow-up. Continues to be stable from symptoms point of view. His blood pressure is elevated though. I have advised him that we should increase the lisinopril to 20 mg daily. He has 10 mg tablets and he will double them up for now. We will bring him back in 10 days for blood pressure check. He will otherwise see us back in 3-4 months. Thank you for allowing me to participate in the care of your patient. Please feel free to contact me if you have any questions. Medications: Changed From lisinopril 10 mg PO DAILY 90 tabs 1RF To lisinopril 20 mg (2 x 10 mg) PO DAILY 90 tabs 1RF Coding Level of Care Code Est Pt Level 4 (51741) Diagnoses Benign essential hypertension I10 Pure hypercholesterolemia E78.00 Coronary artery disease involving [place] coronary artery of [place] heart without angina pectoris I25.10 Coronary Disease-Associated Artery/Lesion type: [place] artery [place] vs. transplanted heart: [place] heart Associated angina: without angina CPT Codes EKG - CPT: 91126-[id number], Complete ([id number])
[2024-06-25 10:18] VITALS: BP 150/64; PULSE 58; BMI 29.6
== END 2024-06-25 10:49 | disposition home or self-care (01) ==
LOC: HO.HCS 10:01
PROVIDERS: PCP Internal Medicine; Visit Provider Internal Medicine Cardiovascular Disease
DX: I10 Essential (primary) hypertension (principal); E78.00 Pure hypercholesterolemia, unspecified; I25.10 Atherosclerotic heart disease of native coronary artery without angina pectoris
CPT/HCPCS: 93010; 99214

== ENCOUNTER → 2024-06-25 10:01 | Outpatient (BNVA) | payer OTHER, SELFPAY | PROVIDERS: PCP Internal Medicine; Visit Provider Internal Medicine Cardiovascular Disease | DX: I10 Essential (primary) hypertension (principal); I25.10 Atherosclerotic heart disease of native coronary artery without angina pectoris; E78.00 Pure hypercholesterolemia, unspecified; Z79.899 Other long term (current) drug therapy | CPT/HCPCS: 93005; 99212 ==

== ENCOUNTER → 2024-07-11 09:44 | Outpatient (BNVA) | payer OTHER, SELFPAY | PROVIDERS: PCP Internal Medicine; Visit Provider Internal Medicine Cardiovascular Disease ==

== ENCOUNTER 2024-08-17 14:46 | Outpatient (AMB) | payer OTHER, SELFPAY ==
--- NOTE | 2024-08-17 14:55 | MHC.OFFVIS ---
Vital Signs 08/17/24 14:56 Height 5 ft 6 in Weight 174 lb 2.643 oz BMI 28.1 BP 138/70 Blood Pressure Location Lt brachial Position Sitting Pulse 76 Pulse Source Pulse Oximeter Intake Visit Reasons: [facility] Discharge- Follow up Allergies oxycodone [OXYCODONE] Adverse Reaction (Severe, Verified 06/08/24 12:48) SEVERE VOMITNG Medication List - Last Reconciled 08/17/24 by Ranjit Foreman NP aspirin (Adult Aspirin Regimen) 81 mg PO DAILY blood sugar diagnostic (FreeStyle Lite Strips) As directed test blood glucose 1-2 times daily blood-glucose meter (FreeStyle Lite Meter kit) As directed test blood glucose daily carvedilol 12.5 mg PO BID ezetimibe 10 mg PO DAILY indomethacin 50 mg PO BID PRN lancets (FreeStyle Lancets) As directed test blood glucose 1-2 times a day lisinopril 20 mg (2 x 10 mg) PO DAILY metformin 500 mg PO BID rosuvastatin 40 mg PO DAILY rosuvastatin 40 mg PO DAILY ticagrelor (Brilinta) 90 mg PO BID HPI Comments Details: This is a 73-year-old male patient presenting for a hospital discharge follow-up. Patient with medical history including hypertension, hyperlipidemia, diabetes, and coronary artery disease with a prior NJ in 1996 treated with PCI x2. He was recently admitted to [facility] for chest pain which woke him up from his sleep. Given his presentation and ECG findings concerning for an NJ, patient underwent cardiac catheterization on 07/30/2024, and is now status post PCI to the mid LAD. Today, patient reports feeling well overall and denies any cardiac symptoms including exertional chest pain, shortness of breath, palpitations, dizziness, orthopnea, PND, leg edema, presyncope or syncope. Patient affirms compliance with all his medications and reports that he has been tolerating them well. [facility] Medical History On beta timoteo at home Type 2 diabetes mellitus without complications Lab test negative for COVID-19 virus Hx of gout Back pain Overweight (BMI 25.0-29.9) Osteoarthritis of hips, bilateral Benign essential hypertension Pure hypercholesterolemia Coronary artery disease Cataract Surgical History H/O tooth extraction History of cataract surgery Hx of coronary angioplasty History of right hip replacement History of colonoscopy History of hip replacement Family History Father Diabetes Kidney failure Mother Colon cancer Social History Housing: House Are you a primary furnace caretaker to a significant other at home: No Do you presently have visiting nurse or other home services: No Alcohol intake: current Alcohol intake frequency: holidays/special occasions only Patient Tobacco Use Status: Former Tobacco user Tobacco use type: Cigarette e-Cigarette/Vaping Use: Never Used Second Hand Smoke Exposure: No service: Yes Current occupational status: retired Cognitive needs: Yes (cane) Hearing needs: No Vision needs: Yes (reading glasses) Review of Systems Const Denies weakness ENT Denies dizziness Card Denies chest pain, Denies chest pain with activity, Denies syncope, Denies rapid heart rate, Denies pedal edema, Denies edema, Denies leg edema, Denies lightheadedness, Denies palpitations, Denies dyspnea, Denies dyspnea on exertion and Denies orthopnea Resp Denies cough, Denies dyspnea and Denies dyspnea on exertion GI Denies hematochezia and Denies change in stool character Musc Denies abnormal gait, Denies muscle cramps, Denies muscle weakness, Denies numbness, Denies radiating pain into limb and Denies tingling Neuro Denies abnormal gait, Denies dizziness, Denies syncope, Denies numbness, Denies tingling and Denies weakness Endo Denies palpitations Physical Exam Vital Signs: Last Vital Signs Pulse 76 08/17/24 14:56 BP 138/70 08/17/24 14:56 BMI result Body Mass Index 28.1 Const General: cooperative, healthy appearing, comfortable and no acute distress Orientation/consciousness: patient oriented x3 HEENT Head: Yes normal to inspection Neck Neck: Yes normal visual inspection, Yes trachea midline and Yes supple Chest Chest palpation & inspection: normal inspection of the chest Resp Effort & Inspection: normal respiratory effort Auscultation: clear to auscultation bilaterally, no crackles, no rales, no rhonchi and no wheezes Cardio Jugular venous distension: no JVD Palpation: normal PMI Rate: regular rate Rhythm: regular rhythm Heart sounds: S1 normal heart sound present, S2 normal heart sound present, no click, no gallops, no murmurs and no rubs Peripheral pulses: Peripheral pulses 2+ throughout GI Inspection: Yes normal to inspection Palpation (GI): Soft to palpation Auscultation: normal bowel sounds Skin General skin exam: no rashes or lesions noted Neuro General: patient oriented x3 Extrem General: Yes normal to inspection, No no pedal edema and No calf tenderness Psych Appearance: grossly normal Mental Status: mental status grossly normal Speech and movement: Normal speech and movement present Assessment & Plan Assessment & Plan (1) STEMI (ST elevation myocardial infarction): Code(s): I21.3 - ST elevation (STEMI) myocardial infarction of unspecified site Category: Medical Plan: History of prior NJ in 1996 treated with PCI x2. 07/30/2024-patient was seen at [facility] for crushing chest pain that woke him at night. Patient had EKG concerning for anterolateral inferior ST segment elevations. Echocardiogram showed reduced ejection fraction between 40-45% with wall motion abnormalities. Patient underwent cardiac catheterization with Dr. Rizvi status post PCI to mid LAD. Right wrist catheter insertion site well healed. Continue lifelong aspirin therapy. Continue uninterrupted Brilinta therapy for at least 12 months. Continue lisinopril, carvedilol, high-dose statin and Zetia therapy. No reported signs of bleeding. We will periodically monitor labs. We will refer patient out to cardiac rehab for post PCI recovery. We will also repeat an echocardiogram before his next visit to evaluate for LV dysfunction and wall motion changes. (2) Status post cardiac catheterization: Code(s): Z98.890 - Other specified postprocedural states Category: Surgical Plan: As above. (3) Coronary artery disease: Comment: angioplasty w/stent X2-1996- Foll'd by Dr. Covarrubias Code(s): I25.10 - Atherosclerotic heart disease of [place] coronary artery without angina pectoris Category: Medical Qualifiers: Coronary Disease-Associated Artery/Lesion type: [place] artery [place] vs. transplanted heart: [place] heart Associated angina: without angina Qualified Code(s): I25.10 - Atherosclerotic heart disease of [place] coronary artery without angina pectoris Plan: As above. (4) Benign essential hypertension: Code(s): I10 - Essential (primary) hypertension Category: Medical Plan: Blood pressure today is well-controlled. Continue current regimen. Advised monitoring blood pressures and keeping a log of it. Ideally, blood pressure goal less than 130/80. (5) Type 2 diabetes mellitus without complications: Code(s): E11.9 - Type 2 diabetes mellitus without complications Category: Medical Plan: Continue diabetes management. Ideally, A1c goal less than 7%. (6) Hospital discharge follow-up: Code(s): Z09 - Encounter for follow-up examination after completed treatment for conditions other than malignant neoplasm Plan: As above. Advised heart healthy diet, regular exercise, med compliance, and aggressive management of vascular risk factors. Patient will follow up in [address] Covarrubias. In the interim, patient will call the office with any concerns or change in symptoms. This note was generated using voice recognition software. While every effort has been made to ensure accuracy and proper goodwill ambassador, there may be occasional errors that could affect the content or meaning of the described symptoms. Orders: Orders Basic Metabolic Panel 3 Months I25.10 - Atherosclerotic heart disease of [place] coronary artery without angina pectoris Lipid Panel 3 Months I25.10 - Atherosclerotic heart disease of [place] coronary artery without angina pectoris CA echo transthoracic complete 6 Months I25.10 - Atherosclerotic heart disease of [place] coronary artery without angina pectoris Complete Blood Count no Diff 3 Months I25.10 - Atherosclerotic heart disease of [place] coronary artery without angina pectoris Liver Panel 3 Months I25.10 - Atherosclerotic heart disease of [place] coronary artery without angina pectoris Cardiac Rehab Today I25.10 - Atherosclerotic heart disease of [place] coronary artery without angina pectoris Medications: New carvedilol 12.5 mg PO BID 180 tabs 3RF ticagrelor (Brilinta) 90 mg PO BID 180 tabs 3RF rosuvastatin 40 mg PO DAILY 90 tabs 3RF ezetimibe 10 mg PO DAILY 90 tabs 3RF Refilled lisinopril 20 mg (2 x 10 mg) PO DAILY 90 tabs 3RF Discontinued indomethacin Discontinued Reason: Doctor's Order 50 mg PO BID PRN 30 caps 1RF Pain Coding Level of Care Code Est Pt Level 4 (27906) Complex EM visit Add On G2211 Diagnoses STEMI (ST elevation myocardial infarction) I21.3 Status post cardiac catheterization Z98.890 Coronary artery disease involving [place] coronary artery of [place] heart without angina pectoris I25.10 Coronary Disease-Associated Artery/Lesion type: [place] artery [place] vs. transplanted heart: [place] heart Associated angina: without angina Benign essential hypertension I10 Type 2 diabetes mellitus without complications E11.9 Hospital discharge follow-up Z09 Time Spent (min) 35 Comment Time spent in reviewing the chart, test results, assessment, counseling and documentation.
[2024-08-17 14:56] VITALS: BP 138/70; PULSE 76; BMI 28.1
== END 2024-08-17 15:44 | disposition home or self-care (01) ==
LOC: HO.HCS 14:46
PROVIDERS: PCP Internal Medicine
DX: I21.3 ST elevation (STEMI) myocardial infarction of unspecified site (principal); Z98.890 Other specified postprocedural states; I25.10 Atherosclerotic heart disease of native coronary artery without angina pectoris; I10 Essential (primary) hypertension; E11.9 Type 2 diabetes mellitus without complications; Z09 Encounter for follow-up examination after completed treatment for conditions other than malignant neoplasm
CPT/HCPCS: 99214

== ENCOUNTER → 2024-08-17 14:46 | Outpatient (BNVA) | payer OTHER, SELFPAY | PROVIDERS: PCP Internal Medicine | DX: I10 Essential (primary) hypertension (principal); I25.10 Atherosclerotic heart disease of native coronary artery without angina pectoris; I25.2 Old myocardial infarction; E78.5 Hyperlipidemia, unspecified; E11.9 Type 2 diabetes mellitus without complications; Z09 Encounter for follow-up examination after completed treatment for conditions other than malignant neoplasm; Z98.890 Other specified postprocedural states | CPT/HCPCS: 99212 ==

== ENCOUNTER 2024-08-24 13:14 | Outpatient (AMB) | payer OTHER, SELFPAY ==
--- OUTSIDE RECORDS SUMMARY | 2024-08-24 13:18 | XMS_ITS | Continuity of Care Document ---
Author Name [facility] Organization [facility] Care Team Providers Care Transit Mix Operator Name Role Phone [facility] Unavailable Unavailable Problems Combined list of problems from Department of Defense and Veterans Affairs facilities. It does not include entries that were removed or entered in error. Problem Status Onset Date Problem Type Date of Resolution Comments Source Diagnosis: ICD-10-CM Z02.89 Encounter for other administrative examinations Active Diagnosis [facility] [place] [facility] Immunizations Combined list of available immunizations from the Department of Defense and Veterans Affairs facilities. Immunization Series Date Given Administered By Site Reaction Lot Number CVX Code Drug Assembler Trim Status Comments Source influenza virus vaccine, split virus (incl. purified surface antigen)-reti red CODE 1 2004 Unknown, Provider [id number] Sanofi Pasteur ([facility]) complet ed influenza virus vaccine, split virus (incl. purified surface antigen)- retired CODE DoD influenza virus vaccine, whole virus 1 2002 Unknown, Provider [id number] [employer] (PWJ) complet ed influenza virus vaccine, whole virus DoD tuberculin skin test; purified protein derivative solution, intradermal 1 2002 Unknown, Provider [id number] Sanofi Pasteur ([facility]) complet ed tuberculi n skin test; purified protein derivativ e solution, intraderm al DoD influenza virus vaccine, whole virus 1 2002 Unknown, Provider [id number] 16 [employer] (PWJ) complet ed influenza virus vaccine, whole virus DoD influenza virus vaccine, whole virus 1 2001 Unknown, Provider [id number] 16 Sanofi Pasteur ([facility]) complet ed influenza virus vaccine, whole virus DoD meningococcal polysaccharid e vaccine (MPSV4) 1 2001 Unknown, Provider [id number] Sanofi Pasteur ([facility]) complet ed meningoco ccal polysacch aride vaccine (MPSV4) DoD typhoid vaccine, parenteral, other than acetone-kille d, dried 1 2001 Unknown, Provider [id number] Sanofi Pasteur ([facility]) complet ed typhoid vaccine, parentera l, other than acetone-k illed, dried DoD tuberculin skin test; purified protein derivative solution, intradermal 1 2001 Unknown, Provider [id number] [facility] ([facility]) complet ed tuberculi n skin test; purified protein derivativ e solution, intraderm al DoD hepatitis B vaccine, adult dosage 3 2001 Unknown, Provider [id number] Merck ([facility] complet ed hepatitis B vaccine, adult dosage DoD influenza virus vaccine, whole virus 1 2000 Unknown, Provider [id number] 16 [facility] ([facility]) complet ed influenza virus vaccine, whole virus DoD hepatitis B vaccine, adult dosage 2 2000 Unknown, Provider [id number] Merck ([facility]) complet ed hepatitis B vaccine, adult dosage DoD yellow fever vaccine 1 2000 Unknown, Provider [id number] 37 [facility] ([facility]) complet ed yellow fever vaccine DoD hepatitis B vaccine, adult dosage 1 2000 Unknown, Provider [id number] Merck ([facility]) complet ed hepatitis B vaccine, adult dosage DoD tuberculin skin test; purified protein derivative solution, intradermal 1 2000 Unknown, Provider [id number] 96 [facility] ([facility]) complet ed tuberculi n skin test; purified protein derivativ e solution, intraderm al DoD influenza virus vaccine, whole virus 2 1999 Unknown, Provider [id number] 16 Agustín ([facility]) complet ed influenza virus vaccine, whole virus DoD typhoid vaccine, parenteral, other than acetone-kille d, dried 1 1999 Unknown, Provider [id number] Bello ([facility]) complet ed typhoid vaccine, parentera l, other than acetone-k illed, dried DoD influenza virus vaccine, whole virus 1 1998 Unknown, Provider [id number] 16 Agustín ([facility]) complet ed influenza virus vaccine, whole virus [...] vaccine, adult dosage 2 1998 Unknown, Provider [id number] 52 [employer]Mccrack[employer] ([facility]) complet ed hepatitis A vaccine, adult dosage DoD measles, mumps and rubella virus vaccine 2 1997 Unknown, Provider [id number] Turner ([facility]) complet ed measles, mumps and rubella virus vaccine DoD influenza virus vaccine, whole virus 1 1997 Unknown, Provider [id number] 16 Bello ([facility]) complet ed influenza virus vaccine, whole virus DoD hepatitis A vaccine, adult dosage 1 1997 Unknown, Provider [id number] 52 [facility] ([facility]) complet ed hepatitis A vaccine, adult dosage DoD tuberculin skin test; purified protein derivative solution, intradermal 1 1997 Unknown, Provider [id number] Bello (CON) complet ed tuberculi n [...] ADM Date DC Date Status Disposition Source [facility] Outpatient Encounter [id number] Diagnos is: ICD-10- CM Z02.89 Encount er for other adminis trative examina BATOOL Luna 01/22 [facility] [place] [facility] Social History Combined list of available smoking, tobacco, and other social history from Department of Defense and Veterans Affairs facilities. Social History Type Response Date Comment Sour e This section is an empty social history section. DoD
--- NOTE | 2024-08-24 14:46 | AM.OFFWIN_ITS ---
Intake Vital Signs 3 08/24/24 14:50 Weight 174 lb BP 126/66 Blood Pressure Location Rt brachial Position Sitting Pulse 70 Pulse Source Pulse Oximeter Pulse Oximetry (%) 98 Oxygen Delivery Method Room Air Intake Visit Reasons: EP Hard to walk/can't on lt foot Intake Note: Patient here for left foot pain that has been present for about 1 week. Patient Tobacco Use Status: Former Tobacco user Allergies oxycodone [OXYCODONE] Adverse Reaction (Severe, Verified 08/24/24 14:50) SEVERE VOMITNG Do you need a note to return to daycare/school/sports/work: No HPI HPI Comments 2 History of Present Illness0 Details 74 y/o Male patient who presents to the walk in clinic with c/o Left Foot and swelling for 1 week due to Gout flare-up. He usually uses Indomethacin, but due to recent Heart Attack (the end of July) and he has not taken it, believes this could be why Foot swollen. [facility] Medical History (Updated 08/24/24 @ 15:22 by Sera Cabrera NP) Foot pain, left On beta timoteo at home Type 2 diabetes mellitus without complications Lab test negative for COVID-19 virus Hx of gout Back pain Overweight (BMI 25.0-29.9) Osteoarthritis of hips, bilateral Benign essential hypertension Pure hypercholesterolemia Coronary artery disease Cataract Surgical History (Updated 08/17/24 @ 15:58 by Ranjit Foreman NP) H/O tooth extraction History of cataract surgery Hx of coronary angioplasty History of right hip replacement History of colonoscopy History of hip replacement Family History Father Diabetes Kidney failure Mother Colon cancer Social History Housing: House Are you a primary college and career counselor to a significant other at home: No Do you presently have visiting nurse or other home services: No Alcohol intake: current Alcohol intake frequency: holidays/special occasions only Patient Tobacco Use Status: Former Tobacco user Tobacco use type: Cigarette e-Cigarette/Vaping Use: Never Used Second Hand Smoke Exposure: No service: Yes Current occupational status: retired Cognitive needs: Yes (cane) Hearing needs: No Vision needs: Yes (reading glasses) Review of Systems Const All systems reviewed & are unremarkable except as noted in HPI and below Physical Exam Vital Signs: Last Vital Signs Pulse 70 08/24/24 14:50 BP 126/66 08/24/24 14:50 Pulse Ox 98 08/24/24 14:50 Oxygen Delivery Method Room Air 08/24/24 14:50 Const General: no acute distress Nutritional Appearance: overweight Orientation/consciousness: patient oriented x3 Limitations: ambulation with walker Neuro General: patient oriented x3, gait normal and moves all extremities Extrem Right lower extremity: normal to inspection and full ROM Left lower extremity: foot Details: normal capillary refill and tenderness Ankle/foot/toe images: 2 1. Swelling, TTP Limited ROM due to pain. Normal color and temperature. Assessment & Plan Assessment & Plan (1) Foot pain, left: Code(s): M79.672 - Pain in left foot Plan: Acetaminophen for pain relief. Ordered Prednisone. Medications: New 2 prednisone 50 mg PO DAILY 5 tabs 0RF 5 days M79.672 - Pain in left foot Coding Level of Care Code Est Pt Level 4 (81622) Diagnoses Foot pain, left M79.672 Time Spent (min) 20
[2024-08-24 14:50] VITALS: BP 126/66; PULSE 70; O2SAT 98
== END 2024-08-24 15:17 | disposition home or self-care (01) ==
PROVIDERS: PCP Internal Medicine; Visit Provider Nurse Practitioner Family
DX: M79.672 Pain in left foot (principal)

== ENCOUNTER → 2024-08-24 13:14 | Outpatient (BNVA) | payer OTHER, SELFPAY | PROVIDERS: PCP Internal Medicine; Visit Provider Nurse Practitioner Family | DX: M79.672 Pain in left foot (principal) | CPT/HCPCS: 99212 ==

== ENCOUNTER 2024-08-30 07:54 | Outpatient (AMB) | payer OTHER, SELFPAY ==
--- OUTSIDE RECORDS SUMMARY | 2024-08-30 07:57 | XMS_ITS | Continuity of Care Document ---
Author Name [facility] Organization [facility] Care Team Providers Care Credentialing Analyst Name Role Phone [facility] Unavailable Unavailable Problems Combined list of problems from Department of Defense and Veterans Affairs facilities. It does not include entries that were removed or entered in error. Problem Status Onset Date Problem Type Date of Resolution Comments Source Diagnosis: ICD-10-CM Z02.89 Encounter for other administrative examinations Active Diagnosis [facility] [place] [facility] Immunizations Combined list of available immunizations from the Department of Defense and Veterans Affairs facilities. Immunization Series Date Given Administered By Site Reaction Lot Number CVX Code Drug Binding Nicker Status Comments Source influenza virus vaccine, split virus (incl. purified surface antigen)-reti red CODE 1 2004 Unknown, Provider [id number] Sanofi Pasteur ([facility]) complet ed influenza virus vaccine, split virus (incl. purified surface antigen)- retired CODE DoD influenza virus vaccine, whole virus 1 2002 Unknown, Provider [id number] [employer] (PWJ) complet ed influenza virus vaccine, whole virus DoD tuberculin skin test; purified protein derivative solution, intradermal 1 2002 Unknown, Provider [id number] Sanofi Pasteur ([facility]) complet ed tuberculi n skin test; purified protein derivativ e solution, intraderm al DoD influenza virus vaccine, whole virus 1 2002 Unknown, Provider [id number] 16 [employer] (PWJ) complet ed influenza virus vaccine, whole virus DoD influenza virus vaccine, whole virus 1 2001 Unknown, Provider [id number] Sanofi Pasteur ([facility]) complet ed influenza virus vaccine, whole virus DoD meningococcal polysaccharid e vaccine (MPSV4) 1 2001 Unknown, Provider [id number] Sanofi Pasteur ([facility]) complet ed meningoco ccal polysacch aride vaccine (MPSV4) DoD typhoid vaccine, parenteral, other than acetone-kille d, dried 1 2001 Unknown, Provider [id number] Sanofi Pasteur ([facility]) complet ed typhoid vaccine, parentera l, other than acetone-k illed, dried DoD tuberculin skin test; purified protein derivative solution, intradermal 1 2001 Unknown, Provider [id number] 96 ofi Pasteur ([facility]) complet ed tuberculi n skin test; purified protein derivativ e solution, intraderm al DoD hepatitis B vaccine, adult dosage 3 2001 Unknown, Provider [id number] Merck ([facility]) complet ed hepatitis B vaccine, adult dosage DoD influenza virus vaccine, whole virus 1 2000 Unknown, Provider [id number] 16 ofi Pasteur ([facility]) complet ed influenza virus vaccine, whole virus DoD hepatitis B vaccine, adult dosage 2 2000 Unknown, Provider [id number] Merck ([facility]) complet ed hepatitis B vaccine, adult dosage DoD yellow fever vaccine 1 2000 Unknown, Provider [id number] 37 ofi Pasteur ([facility]) complet ed yellow fever vaccine DoD hepatitis B vaccine, adult dosage 1 2000 Unknown, Provider [id number] Merck ([facility]) complet ed hepatitis B vaccine, adult dosage DoD tuberculin skin test; purified protein derivative solution, intradermal 1 2000 Unknown, Provider [id number] 96 ofi Pasteur ([facility]) complet ed tuberculi n skin test; purified protein derivativ e solution, intraderm al DoD influenza virus vaccine, whole virus 2 1999 Unknown, Provider [id number] 16 Agustín ([facility]) complet ed influenza virus vaccine, whole virus DoD typhoid vaccine, parenteral, other than acetone-kille d, dried 1 1999 Unknown, Provider [id number] Bello ([facility]) complet ed typhoid vaccine, parentera l, other than acetone-k illed, dried DoD influenza virus vaccine, whole virus 1 1998 Unknown, Provider [id number] 16 Agustín ([facility]) complet ed influenza virus vaccine, whole virus [...] vaccine, adult dosage 2 1998 Unknown, Provider [id number] 52 [employer] ([facility]) complet ed hepatitis A vaccine, adult dosage DoD measles, mumps and rubella virus vaccine 2 1997 Unknown, Provider [id number] Turner (AB) complet ed measles, mumps and rubella virus vaccine DoD influenza virus vaccine, whole virus 1 1997 Unknown, Provider [id number] 16 Bello ([facility]) complet ed influenza virus vaccine, whole virus DoD hepatitis A vaccine, adult dosage 1 1997 Unknown, Provider [id number] 52 [facility] ([facility]) complet ed hepatitis A vaccine, adult dosage DoD tuberculin skin test; purified protein derivative solution, intradermal 1 1997 Unknown, Provider [id number] Bello ([facility]) complet ed tuberculi n [...] Date DC Date Status Disposition Source [facility] Outpatient Encounter [id number] Diagnos is: ICD-10- CM Z02.89 Encount er for other adminis trative examina BATOOL Luna 01/22 [facility] [place] [facility] Social History Combined list of available smoking, tobacco, and other social history from Department of Defense and Veterans Affairs facilities. Social History Type Response Date Comment Sour e This section is an empty social history section. DoD
--- NOTE | 2024-08-30 08:07 | MHC.PC.OV ---
Vital Signs 08/30/24 08:08 Height 5 ft 6 in Weight 175 lb 4 oz BMI 28.3 BP 120/80 Blood Pressure Location Lt brachial Position Sitting Pulse 61 Pulse Source Pulse Oximeter Temp 97.1 F Temp Source Temporal Artery Scan Pulse Oximetry (%) 96 Oxygen Delivery Method Room Air Intake Visit Reasons: 6mth f/u Intake Note: Patient is here to follow up on Hyperglycemia, DM, CAD. Construction Director Required: No Hospice Patient Care Secretary: Present Accompanied by: Self / Same As Patient Allergies oxycodone [OXYCODONE] Adverse Reaction (Severe, Verified 08/30/24 08:08) SEVERE VOMITNG Tobacco use date assessed: 08/30/24 Fall risk assessment: No Falls in past year Last assessed Fall Risk: 08/30/24 Dental Screening Dental Screen Date: 08/30/24 Did you have a dental visit in the last 12 months?: No Did you have a dental problem in the last 6 months where you did not have access to dental care?: No Was dental information given to patient?: Patient declined [facility] Medical History (Updated 08/24/24 @ 15:22 by Sera Cabrera NP) Foot pain, left On beta timoteo at home Type 2 diabetes mellitus without complications Lab test negative for COVID-19 virus Hx of gout Back pain Overweight (BMI 25.0-29.9) Osteoarthritis of hips, bilateral Benign essential hypertension Pure hypercholesterolemia Coronary artery disease Cataract Surgical History (Updated 08/30/24 @ 08:22 by RICCI Maciel) History of heart artery stent H/O tooth extraction History of cataract surgery Hx of coronary angioplasty History of right hip replacement History of colonoscopy (~01/20/22) History of hip replacement Family History Father Diabetes Kidney failure Mother Colon cancer Social History Housing: House Are you a primary health care marketing specialist to a significant other at home: No Do you presently have visiting nurse or other home services: No Alcohol intake: current Alcohol intake frequency: holidays/special occasions only Patient Tobacco Use Status: Former Tobacco user Tobacco use type: Cigarette e-Cigarette/Vaping Use: Never Used Second Hand Smoke Exposure: Yes service: Yes Current occupational status: retired Cognitive needs: Yes (cane) Hearing needs: No Vision needs: Yes (reading glasses) Questionnaire PHQ-9 Over the last 2 weeks, how often have you been bothered by any of the following problems? 1. Little interest or pleasure in doing things: not at all 2. Feeling down, depressed, or hopeless: not at all 3. Trouble falling or staying asleep, or sleeping too much: not at all 4. Feeling tired or having little energy: not at all 5. Poor appetite or overeating: not at all 6. Feeling bad about yourself - or that you are a failure or have let yourself or your family down: not at all 7. Trouble concentrating on things, such as reading the newspaper or watching television: not at all 8. Moving or speaking so slowly that other people could have noticed. Or the opposite - being so fidgety or restless that you have been moving around a lot more than usual: not at all 9. Thoughts that you would be better off or of hurting yourself in some way: not at all Total score: 0 Depression Screening Interpretation: Negative Depression Screening Done: Yes Source: Developed by Drs. Panda Yun, Yesenia Benz, Johnsno Bedoya and colleagues, with an educational batool from [employer]. Thrive Questionnaire Date Thrive assessed: 08/23/24 I am a: Patient What is your living situation today?: I have a steady place to live Within the past 12 months, did the food you bought not last and you didn't have the money to get more?: Never true Within the past 12 months, did you worry whether your food would run out before you got money to buy more?: Never true Do you have trouble paying for medicines?: No Do you have trouble getting transportation to medical appointments?: No Do you have trouble paying your heating and electricity bill?: I choose not to answer this question Do you have trouble taking care of your child, family member or friend?: No Do you have trouble with day-to-day activities such as bathing, preparing meals, shopping, managing finances, etc.?: No Are you currently unemployed and looking for a job?: No Are you interested in more education?: No Please select the resources that you would like help with: None Currently or been in a relationship where the following occur: No concerns reported THRIVE Score: 0 AUDIT C Alcohol Use Questionnaire (AUDIT-C) 1. How often do you have a drink containing alcohol?: Never 2. How many drinks containing alcohol do you have on a typical day when you are drinking?: 1 or 2 3. How often do you have six or more drinks on one occasion?: Never Total Score: 0 ALEXIS-7 AMB Questionnaire ALEXIS-7 Date ALEXIS - 7 assessed: 08/30/24 Feeling nervous, anxious, or on edge: 0 = Not at all Not being able to stop or control worryin = Not at all Worrying too much about different things: 0 = Not at all Trouble relaxin = Not at all Being so restless that it is hard to sit still: 0 = Not at all Becoming easily annoyed or irritable: 0 = Not at all Feeling afraid as if something awful might happen: 0 = Not at all Total ALEXIS-7 score (0-4 normal; 5-9 mild; 10-14 moderate; 15-21 severe): 0 Source: Developed by Drs. Panda Yun, Yesenia Benz, Johnson Bedoya and colleagues, with an educational batool from [employer]. Physical exam (Primary Care) Vital Signs: Last Vital Signs Temp 97.1 F 08/30/24 08:08 Pulse 61 08/30/24 08:08 BP 120/80 08/30/24 08:08 Pulse Ox 96 08/30/24 08:08 Oxygen Delivery Method Room Air 08/30/24 08:08 BMI result Body Mass Index 28.3 Tobacco/Smoking Status: Tobacco use Status Tobacco use date assessed 08/30/24 08/30/24 08:23 Patient Tobacco Use Status Former Tobacco user 08/30/24 08:23 Tobacco use type Cigarette 08/30/24 08:23 e-Cigarette/Vaping Use Never Used 08/30/24 08:23 PHQ-9: PHQ-9 Score PHQ-9: Total score 0 08/30/24 08:23 Depression Screening Interpretation: Negative Thrive Assessment: Date of Thrive Assessment Date Thrive assessed 08/23/24 08/30/24 08:23 Currently or been in a relationship where the following occur: No concerns reported Results AMB Hemoglobin A1c AMB Hemoglobin A1c 6.8 % Last Edit by RICCI Maciel on 08/30/24 08:27 Results Reviewed Results Reviewed: Laboratory Last Values Hgb A1c (Clinic) 6.8 % (4.0-6.0) H 08/30/24 08:06 Coding Level of Care Code Est Pt Level 4 (53163) Complex EM visit Add On G2211 Diagnoses Coronary artery disease involving [place] coronary artery of [place] heart without angina pectoris I25.10 Coronary Disease-Associated Artery/Lesion type: [place] artery [place] vs. transplanted heart: [place] heart Associated angina: without angina Type 2 diabetes mellitus without complications E11.9 Assessment & Plan Assessment & Plan (1) Coronary artery disease: Comment: angioplasty w/stent -1996- by Dr. Covarrubias Code(s): I25.10 - Atherosclerotic heart disease of [place] coronary artery without angina pectoris Category: Medical Qualifiers: Coronary Disease-Associated Artery/Lesion type: [place] artery [place] vs. transplanted heart: [place] heart Associated angina: without angina Qualified Code(s): I25.10 - Atherosclerotic heart disease of [place] coronary artery without angina pectoris Plan: Starting cardiac rehab soon. Will be on Brillanta (2) Type 2 diabetes mellitus without complications: Code(s): E11.9 - Type 2 diabetes mellitus without complications Category: Medical Plan: Metformin dosage increased to 1 g a day Plan History of Present Illness - The patient is a 74 year old male presenting with follow-up for a recent cardiac event. - The patient underwent a coronary artery stent placement due to a blocked artery. - He reports an improvement in symptoms following the procedure. - Medication changes were made, including an increased dosage of metformin and new prescriptions for Brilinta, esomeprazole, and carvedilol. - Rosuvastatin dosage was increased to 40 mg; lisinopril is currently at 30 mg. - The patient has an appointment scheduled for cardiac rehabilitation. - He experienced mild shortness of breath associated with exertion but otherwise reports no significant symptoms. Social History - The patient engages in physical work and is advised to moderate his activity level. Review of Systems - Cardiovascular: Reports improvement post-stent placement, denies chest pain. - Respiratory: Denies shortness of breath, except during physical exertion. - General: Reports feeling better overall. Physical Exam General: Cooperative and healthy appearing Nutritional Appearance: Well nourished Orientation/consciousness: Patient oriented x3 Limitations: No limitations Head: Normal to inspection General: Appearance normal, both eyes and all related structures Neck: Normal visual inspection Chest: Normal palpation of entire chest wall Respiratory: Shortness of breath noted yesterday after physical activity, otherwise no issues reported. ormal respiratory effort Neurology: Patient oriented x3 Results Plan 1. Coronary Artery Disease With Stent Placement - Continue monitoring medication efficacy and initiate cardiac rehabilitation. 2. Type 2 Diabetes Mellitus - Adjust metformin dosage and ensure supply of monitoring supplies. 3. Hyperlipidemia - Increase rosuvastatin dosage and monitor lipid profile. 4. Hypertension - Maintain current lisinopril dosage and monitor blood pressure. Discussion Notes I discussed with Mr. Avila the importance of adhering to his new medication regimen following his recent coronary event and the placement of a stent. We reviewed the medication changes, including the increased dosage of metformin and rosuvastatin, and the addition of Brilinta, esomeprazole, and carvedilol. I emphasized the need for regular monitoring of his blood pressure and blood glucose levels. We discussed the initiation of cardiac rehabilitation to support his recovery and reduce the risk of future cardiac events. I advised Mr. Avila to begin cardiac rehabilitation as scheduled and to moderate his physical activity in the interim to avoid overexertion. We also confirmed his follow-up appointment with Dr. Bland at the end of September. Patient Instructions - Take your medications as prescribed. - Attend your cardiac rehabilitation appointment on the . - Monitor your blood sugar levels regularly and keep track of results. - Use test strips and lancets as needed; ensure you have enough supply. - Avoid strenuous physical activity until cleared after rehab starts. - Follow up with Dr. Bland as scheduled at the end of September. - Report any chest pain, shortness of breath, or other concerning symptoms immediately. Orders: Orders AMB Hemoglobin A1c Today E11.9 - Type 2 diabetes mellitus without complications Medications: New metformin 1,000 mg (2 x 500 mg) PO BID 180 tabs 1RF
[2024-08-30 08:08] VITALS: BP 120/80; PULSE 61; TEMP 36.2; O2SAT 96; BMI 28.3
== END 2024-08-30 08:44 | disposition home or self-care (01) ==
LOC: HO.HMCH 07:54
PROVIDERS: PCP Internal Medicine; Visit Provider Internal Medicine
DX: I25.10 Atherosclerotic heart disease of native coronary artery without angina pectoris (principal); E11.9 Type 2 diabetes mellitus without complications

== ENCOUNTER → 2024-08-30 07:54 | Outpatient (BNVA) | payer OTHER, SELFPAY | PROVIDERS: PCP Internal Medicine; Visit Provider Internal Medicine | DX: I25.10 Atherosclerotic heart disease of native coronary artery without angina pectoris (principal); E11.9 Type 2 diabetes mellitus without complications; Z79.84 Long term (current) use of oral hypoglycemic drugs | CPT/HCPCS: 83036; 96127; 99212 ==

== ENCOUNTER 2024-09-26 11:08 | Outpatient (AMB) | payer OTHER, SELFPAY ==
--- NOTE | 2024-09-26 11:37 | A.OFFVIS_ITS ---
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: No Accompanied by: Self / Same As Patient Allergies oxycodone (OXYCODONE) Adverse Reaction (Severe, Verified 08/30/24 08:08) SEVERE VOMITNG Medication List - Last Reconciled 09/26/24 by Rohit Covarrubias MD aspirin (Adult Aspirin Regimen) 81 mg PO DAILY blood sugar diagnostic (FreeStyle Lite Strips) As directed test blood glucose 1- 2 times daily blood-glucose meter (FreeStyle Lite Meter kit) As directed test blood glucose daily carvedilol 12.5 mg PO BID ezetimibe 10 mg PO DAILY indomethacin 50 mg PO BID lancets (FreeStyle Lancets) As directed test blood glucose 1-2 times a day lisinopril 30 mg PO DAILY metformin 1,000 mg (2 x 500 mg) PO BID rosuvastatin 40 mg PO DAILY ticagrelor (Brilinta) 90 mg PO BID HPI Comments Details: [age] year gentleman who has history of coronary artery disease with angioplasty in 1996 at [facility]. Recent admission at [facility] in July 2024 when he presented with anterior ST-elevation RI. he had mid LAD occlusion which was treated with a 2.25 mm x 38 mm synergy XT stent post dilated with 2.5 and 3 mm balloons as per the report. He is currently on aspirin and Brilinta. He is tolerating them and has no bleeding or any concerns. Blood pressure is well controlled. [facility] Medical History (Updated 09/26/24 @ 11:53 by Rohit Covarrubias MD) Foot pain, left On beta timoteo at home Type 2 diabetes mellitus without complications Lab test negative for COVID-19 virus Hx of gout Back pain Overweight (BMI 25.0-29.9) Osteoarthritis of hips, bilateral Benign essential hypertension Pure hypercholesterolemia Coronary artery disease Cataract Surgical History (Updated 08/30/24 @ 08:22 by Sanna Beck Kiki) History of heart artery stent H/O tooth extraction History of cataract surgery Hx of coronary angioplasty History of right hip replacement History of colonoscopy (~01/20/22) History of hip replacement Family History Father Diabetes Kidney failure Mother Colon cancer Social History Housing: House Are you a primary home health care social worker to a significant other at home: No Do you presently have visiting nurse or other home services: No Alcohol intake: current Alcohol intake frequency: holidays/special occasions only Patient Tobacco Use Status: Former Tobacco user Tobacco use type: Cigarette e-Cigarette/Vaping Use: Never Used Second Hand Smoke Exposure: Yes service: Yes Current occupational status: retired Cognitive needs: Yes (cane) Hearing needs: No Vision needs: Yes (reading glasses) Physical Exam Vital Signs: Last Vital Signs Pulse 77 09/26/24 11:38 BP 110/56 L 09/26/24 11:38 BMI result Body Mass Index 28.6 GENERAL APPEARANCE: in no acute distress, pleasant. NECK: no carotid bruit, no jugular venous distention. SKIN: no suspicious lesions, warm and dry. HEART: no murmurs, regular rate and rhythm. LUNGS: clear to auscultation bilaterally. ABDOMEN: soft, nontender. EXTREMITIES: no edema. PERIPHERAL PULSES: equal. NEUROLOGIC: No gross deficits, AAO X 3 Assessment & Plan Assessment & Plan (1) Benign essential hypertension: Code(s): I10 - Essential (primary) hypertension Category: Medical (2) Coronary artery disease: Comment: angioplasty w/stent X2-1996 LAD PCI July 2024 Code(s): I25.10 - Atherosclerotic heart disease of [place] coronary artery without angina pectoris Category: Medical Qualifiers: Coronary Disease-Associated Artery/Lesion type: [place] artery [place] vs. transplanted heart: [place] heart Associated angina: without angina Qualified Code(s): I25.10 - Atherosclerotic heart disease of [place] coronary artery without angina pectoris Plan 74 year gentleman who is here for follow-up. He has known history of coronary disease with previous angioplasty in 1996. July [address]-elevation RI and had primary PCI performed to LAD. He is on aspirin and Brilinta at this stage. Denying any exertional symptoms. No chest discomfort shortness of breath. Blood pressure well controlled. Continue same medications for now. I have explained to him that he will stay on aspirin and Brilinta for the next year. I think once he completes 1 year of dual antiplatelet therapy we should change him to Plavix monotherapy given multiple PCIs. He is going to cardiac rehab 3 times a week. Thank you for allowing me to participate in the care of your patient. Please f eel free to contact me if you have any questions. Coding Level of Care Code Est Pt Level 4 (13331) Diagnoses Benign essential hypertension I10 Coronary artery disease involving [place] coronary artery of [place] heart without angina pectoris I25.10 Coronary Disease-Associated Artery/Lesion type: [place] artery [place] vs. transplanted heart: [place] heart Associated angina: without angina
[2024-09-26 11:38] VITALS: BP 110/56; PULSE 77; BMI 28.6
--- OUTSIDE RECORDS SUMMARY | 2024-09-26 13:15 | XMS_ITS | Continuity of Care Document ---
Author Name [facility] Organization [facility] Care Team Providers Care Animator Name Role Phone [facility] Unavailable Unavailable Problems Combined list of problems from Department of Defense and Veterans Affairs facilities. It does not include entries that were removed or entered in error. Problem Status Onset Date Problem Type Date of Resolution Comments Source Diagnosis: ICD-10-CM Z02.89 Encounter for other administrative examinations Active Diagnosis [facility] [place] [facility] Immunizations Combined list of available immunizations from the Department of Defense and Veterans Affairs facilities. Immunization Series Date Given Administered By Site Reaction Lot Number CVX Code Drug Belt And Link Assembly Supervisor Status Comments Source influenza virus vaccine, split virus (incl. purified surface antigen)-reti red CODE 1 2004 Unknown, Provider [id number] Sanofi Pasteur ([facility]) complet ed influenza virus vaccine, split virus (incl. purified surface antigen)- retired CODE DoD influenza virus vaccine, whole virus 1 2002 Unknown, Provider [id number] [employer] (PWJ) complet ed influenza virus vaccine, whole virus DoD tuberculin skin test; purified protein derivative solution, intradermal 1 2002 Unknown, Provider [id number] Sanofi Pasteur (PMC) complet ed tuberculi n skin test; purified protein derivativ e solution, intraderm al DoD influenza virus vaccine, whole virus 1 2002 Unknown, Provider [id number] 16 [employer] (PWJ) complet ed influenza virus vaccine, whole virus DoD influenza virus vaccine, whole virus 1 2001 Unknown, Provider [id number] 16 Sanofi Pasteur (PMC) complet ed influenza virus vaccine, whole virus DoD meningococcal polysaccharid e vaccine (MPSV4) 1 2001 Unknown, Provider [id number] Sanofi Pasteur ([facility]MC) complet ed meningoco ccal polysacch aride vaccine (MPSV4) DoD typhoid vaccine, parenteral, other than acetone-kille d, dried 1 2001 Unknown, Provider [id number] Sanofi Pasteur ([facility]) complet ed typhoid vaccine, parentera l, other than acetone-k illed, dried DoD tuberculin skin test; purified protein derivative solution, intradermal 1 2001 Unknown, Provider [id number] [facility] ([facility]) complet ed tuberculi n skin test; purified protein derivativ e solution, intraderm al DoD hepatitis B vaccine, adult dosage 3 2001 Unknown, Provider [id number] Merck ([facility]) complet ed hepatitis B vaccine, adult dosage DoD influenza virus vaccine, whole virus 1 2000 Unknown, Provider [id number] [address] [facility] P[facility] ([facility]) complet ed influenza virus vaccine, whole virus DoD hepatitis B vaccine, adult dosage 2 2000 Unknown, Provider [id number] Merck ([facility]) complet ed hepatitis B vaccine, adult dosage DoD yellow fever vaccine 1 2000 Unknown, Provider [id number] [facility] Paste[facility] ([facility]) complet ed yellow fever vaccine DoD hepatitis B vaccine, adult dosage 1 2000 Unknown, Provider [id number] Merck ([facility]D) complet ed hepatitis B vaccine, adult dosage DoD tuberculin skin test; purified protein derivative solution, intradermal 1 2000 Unknown, Provider [id number] [address] [facility] P[facility] ([facility]) complet ed tuberculi n skin test; purified protein derivativ e solution, intraderm al DoD influenza virus vaccine, whole virus 2 1999 Unknown, Provider [id number] 16 Agustín ([facility]) complet ed influenza virus vaccine, whole virus DoD typhoid vaccine, parenteral, other than acetone-kille d, dried 1 1999 Unknown, Provider [id number] Bello ([facility]) complet ed typhoid vaccine, parentera l, other than acetone-k illed, dried DoD influenza virus vaccine, whole virus 1 1998 Unknown, Provider [id number] 16 Agustín ([facility]) complet ed influenza virus vaccine, whole [...] vaccine, adult dosage 2 1998 Unknown, Provider [id number] 52 [place] ([facility]) complet ed hepatitis A vaccine, adult dosage DoD measles, mumps and rubella virus vaccine 2 1997 Unknown, Provider [id number] Turner ([facility]) complet ed measles, mumps and rubella virus vaccine DoD influenza virus vaccine, whole virus 1 1997 Unknown, Provider [id number] 16 Bello (CON) complet ed influenza virus vaccine, whole virus DoD hepatitis A vaccine, adult dosage 1 1997 Unknown, Provider [id number] 52 [facility] ([facility]) complet ed hepatitis A vaccine, adult dosage DoD tuberculin skin test; purified protein derivative solution, intradermal 1 1997 Unknown, Provider [id number] Bello (CON) complet ed tuberculi n [...] ADM Date DC Date Status Disposition Source [facility] Outpatient Encounter [id number] Diagnos is: ICD-10- CM Z02.89 Encount er for other adminis trative examina BATOOL Luna 01/22 [facility] [place] [facility] Social History Combined list of available smoking, tobacco, and other social history from Department of Defense and Veterans Affairs facilities. Social History Type Response Date Comment Sour e This section is an empty social history section. DoD
== END 2024-09-26 11:50 | disposition home or self-care (01) ==
LOC: HO.HCS 11:09
PROVIDERS: PCP Internal Medicine; Visit Provider Internal Medicine Cardiovascular Disease
DX: I10 Essential (primary) hypertension (principal); I25.10 Atherosclerotic heart disease of native coronary artery without angina pectoris
CPT/HCPCS: 99214

== ENCOUNTER → 2024-09-26 11:08 | Outpatient (BNVA) | payer OTHER, SELFPAY | PROVIDERS: PCP Internal Medicine; Visit Provider Internal Medicine Cardiovascular Disease | DX: I10 Essential (primary) hypertension (principal); I25.10 Atherosclerotic heart disease of native coronary artery without angina pectoris | CPT/HCPCS: 99212 ==

== ENCOUNTER 2024-10-01 08:09 | Emergency (ER) | payer OTHER, SELFPAY ==
--- NOTE | ~2024-10-01 | CT_ITS ---
EXAMINATION: CT HEAD WITHOUT CONTRAST CLINICAL INFORMATION: fall, head strike COMPARISON: None available. TECHNIQUE: Contiguous axial imaging was performed from the skull base to vertex without intravenous administration of contrast. This CT examination was performed using dose optimization techniques as appropriate, variously including the following: *Automated exposure control *Adjustment of mA and/or kV according to patient size (this includes techniques or standardized protocols for targeted exams where dose is matched to indication/reason for exam; i.e. extremities or head) *Use of iterative reconstruction technique DLP: 604.97 mGy-cm FINDINGS: No acute cortical disruption, bony calvarium or skull base. No gross hematoma, intraconal or extraconal compartments of the orbits. No acute intracranial hemorrhage, mass effect, midline shift, hydrocephalus or herniation. Shaw-white matter differentiation is normal. There is a subcortical white matter hypodensity in the left frontal superior gyrus. Old lacunar infarct, left midline irlanda. Sellar/suprasellar region demonstrated no gross masses. Craniocervical junction demonstrates normal position of the cerebellar tonsils. Calcified plaques in the cavernous supraclinoid segments both ICAs and V3/V4 segments of the vertebral arteries. No air-fluid levels in the included paranasal sinuses. Tympanic cavities and mastoid cells are aerated. Pneumatized petrous apices, congenital. CT/CT head/brain wo IV con IMPRESSION: No acute fracture, bony calvarium. No acute intracranial hemorrhage. Old lacunar infarct, left midline irlanda. Small focal encephalomalacia, left frontal superior gyrus. Consider prior vascular insult, left SHERMAN territory. Electronically signed by: Willy Vera MD 10/01/2024 08:58 AM EDT
--- NOTE | ~2024-10-01 | CT_ITS ---
EXAMINATION: CT CERVICAL SPINE WITHOUT CONTRAST CLINICAL INFORMATION: Status post fall. COMPARISON: None available. TECHNIQUE: Contiguous axial images through the cervical spine using 3 mm collimation with bone and soft tissue algorithm. Sagittal and coronal reformatted images acquired. DLP: [address] examination was performed using dose optimization techniques as appropriate, variously including the following: *Automated exposure control *Adjustment of mA and/or kV according to patient size (this includes techniques or standardized protocols for targeted exams where dose is matched to indication/reason for exam; i.e. extremities or head) *Use of iterative reconstruction technique FINDINGS: Craniocervical junction is intact with normal alignment between the occipital condyles and lateral masses of C1. Degenerative changes in the periodontal C1 region. Marginal osteophyte formation and syndesmophyte formation at multiple levels C2 C7 more pronounced at C4-5 C5-6 and C6-7 levels. Multilevel facet joint hypertrophy bilaterally more conspicuous at C3-4 and C4-5 levels. Grade 1 anterolisthesis C6-7 on a degenerative basis. C1 is intact. C2 is intact. C3 is intact. C4 is intact. C5 is intact. C6 is intact. C7 is intact. No prevertebral compartment hematoma. Calcified plaques in the carotid bulbs and proximal ICAs as well as the CCAs. Dystrophic calcifications in a nonenlarged right thyroid lobe. Lung apices are excluded from the exam. CT/CT cervical spine wo IV con IMPRESSION: Multilevel cervical spondylosis without acute fracture or trauma-related listhesis. Fleischner guidelines were followed. Electronically signed by: Willy Vera MD 10/01/2024 09:03 AM EDT
[2024-10-01 08:12] VITALS: BP 159/73; PULSE 64; RESP 16; TEMP 36; O2SAT 98; BMI 28.5
--- NOTE | 2024-10-01 08:14 | ED_ITS ---
HPI - Fall General Chief Complaint: Fall Stated Complaint: fall Time Seen by Provider: 10/01/24 08:13 Source: patient and RN notes reviewed Mode of arrival: ambulatory Limitations: no limitations History of Present Illness ED Provider: Ly Martinez PA-C HPI Narrative: This is a 74-year-old male, with a past medical history of type 2 diabetes, hypertension, coronary artery disease, who presents emergency department with concerns of mechanical fall which occurred this morning. Patient states that he was at cardiac rehab this morning and tripped over his leg and fell forward after the rehabilitation while he was getting breakfast at the cafeteria. He struck his head per witnesses. No CP. He states that he had no chest pain, shortness of breath or any symptoms prior to the fall. He denies any headache, dizziness, blurred vision, chest pain, shortness of breath, abdominal pain, nausea, vomiting or diarrhea. He is not anticoagulated. He is on daily aspirin. Denies any other complaints or concerns at this time. MD complaint: fall Fall from: standing Fall witnessed: yes, by bystander Place [place] [place] Loss of consciousness: none Prolonged down time: no Symptoms prior to fall: none Context: tripped/slipped Associated symptoms (after fall): denies Related Data Home Medications ?Medication ?Instructions ?Recorded ?Confirmed aspirin 81 mg tablet,delayed 81 mg PO DAILY 01/27/20 0 09/26/24 release (Adult Aspirin Regimen) Previous Rx's ?Medication ?Instructions ?Recorded carvedilol 12.5 mg tablet 12.5 mg PO BID #180 tabs ezetimibe 10 mg tablet 10 mg PO DAILY #90 tabs 08/02 09/26 rosuvastatin 40 mg tablet 40 mg PO DAILY #90 tabs 08/02 09/26 ticagrelor 90 mg tablet (Brilinta) 90 mg PO BID #180 t abs 08/17/24 lisinopril 30 mg tablet 30 mg PO DAILY #90 tabs 08/02 12/27 blood sugar diagnostic (FreeStyle #100 ea 08/30/24 Lite Strips) blood-glucose meter (FreeStyle #1 ea 08/30/24 Lite Meter kit) lancets 28 gauge (FreeStyle #100 ea 08/30/24 Lancets) metformin 500 mg tablet 1,000 mg (2 x 500 mg) PO BID #180 08/30/24 tabs indomethacin 50 mg capsule 50 mg PO BID #180 caps 09/03 06/26 Allergies Allergy/AdvReac Type Severity Reaction Status Date / Time oxycodone (OXYCODONE) AdvReac Severe SEVERE Verified 10/01/24 08:13 VOMITNG Review of Systems 2 Review of Systems: Yes all other systems are reviewed and are negative Constitutional: Constitutional: Reports as per [facility] Past Medical History Attestation statement: The following information was validated with the patient. Medical History Foot pain, left On beta timoteo at home Type 2 diabetes mellitus without complications Lab test negative for COVID-19 virus Hx of gout Back pain Overweight (BMI 25.0-29.9) Osteoarthritis of hips, bilateral Benign essential hypertension Pure hypercholesterolemia Coronary artery disease Cataract Surgical History History of heart artery stent H/O tooth extraction History of cataract surgery Hx of coronary angioplasty History of right hip replacement History of colonoscopy (~01/20/22) History of hip replacement Family History Family History Father Diabetes Kidney failure Mother Colon cancer Social History Social History Housing: House Are you a primary inspector health care facilities to a significant other at home: No Do you presently have visiting nurse or other home services: No Alcohol intake: current Alcohol intake frequency: holidays/special occasions only Patient Tobacco Use Status: Former Tobacco user Tobacco use type: Cigarette e-Cigarette/Vaping Use: Never Used Second Hand Smoke Exposure: Yes service: Yes Current occupational status: retired Cognitive needs: Yes (cane) Hearing needs: No Vision needs: Yes (reading glasses) Physical Exam 2 Vital Signs: Vital Signs: Last Vital Signs Temp 96.8 F 10/01/24 13:38 Pulse 66 10/01/24 13:38 Resp 18 10/01/24 13:38 BP 159/70 H 10/01/24 13:38 Pulse Ox 96 10/01/24 13:38 O2 Del Method Room Air 10/01/24 13:38 BMI result Body Mass Index 28.5 Const: General: cooperative, comfortable and no acute distress O rientation/consciousness: patient oriented x3 Limitations: no limitations HEENT: Other: Left nare with dried blood noted, no septal hematoma. Head: Yes normal to inspection, Yes normocephalic, Yes atraumatic, No Umanzor's sign, No contusion, No cranial bruits, No occipital foramen tenderness, No palpable skull fracture, No raccoon eyes and No scalp tenderness Ears: h earing grossly normal bilaterally and TM's normal bilaterally (No hemotympanum) General nose exam: Normal external nose present Face and sinus: Yes normal facial exam Mouth: Normal oral and palatal mucosa present, oropharynx normal and moist mucous membranes Throat: Yes posterior oropharynx normal Eyes: General: appearance normal, both eyes and all related structures E yelids: Yes eyelids normal Conjunctivae: conjunctivae normal Sclerae: s clerae normal Pupils: Equal, round and reactive pupils present EOM: EOMs intact bilaterally Neck: Neck: Yes normal visual inspection, Yes full ROM and Yes no lymphadenopathy Lymphatic: no lymphadenopathy noted Chest: Chest palpation & inspection: normal inspection of the chest Resp: Effort & Inspection: normal respiratory effort and able to speak in complete sentences Auscultation: clear to auscultation bilaterally, no crackles, no rales, no rhonchi and no wheezes Cardio: Rate: regular rate Rhythm: regular rhythm Heart sounds: S1 normal heart sound present and S2 normal heart sound present GI: Inspection: Yes normal to inspection Skin: General skin exam: no rashes or lesions noted Trauma: no lacerations or abrasions Wounds: no wounds Neuro: General: patient oriented x3 and moves all extremities Cranial nerves: Yes Equal, round and reactive pupils present Cognition (Neuro): n ormal cognition Gait exam (Neuro): Normal gait present Motor exam (neuro): 5/5 motor strength present throughout and Pronator motor function not present Extrem: General: Yes normal to inspection Right upper extremity: normal to inspection Left upper extremity: normal to inspection Right lower extremity: normal to inspection Left lower extremity: normal to inspection Medications Administered Discontinued Medications Generic Name Dose Route Start Last Admin Trade Name Freq PRN Reason Stop Dose Admin Sodium Chloride 1,000 mls @ 999 mls/hr 10/01/24 09:13 10/01/24 11:00 Ns IV 10/01/24 10:13 Infused .Q1H1M ONE Infusion Medical Decision Making Medical Decision Making [facility] Narrative: This is a 74-year-old male who presents emergency department with concerns for mechanical fall which occurred here in the hospital. Patient went to cardiac rehab, and states that he was exercising his legs a lot of this morning, and he tripped. Witnesses state that he hit his head. He is unsure if he hit his head. He states that he is feeling well. He is alert and oriented x4. Will obtain head CT and neck CT. Head is normocephalic atraumatic. Labs and EKG were also ordered prior to my evaluation. Course: Labs revealing no leukocytosis, normocytic anemia with an H&H of 12.7/37.9. creatinine elevated at 1.7, baseline around 1.3. given 1 L of IV fluids. Troponin x2 flat. Head CT revealing no acute findings. There is an old lacunar infarct, will small focal encephalomalacia - discussed with patient. He has no neurologic changes. EKG was performed, revealing normal sinus rhythm at a ventricular rate of 60 beats per minute. he does have inverted T-waves noted in AVR, and aVL, as well as inverted T-waves noted in V1, and V2. Previous EKG was performed in 2019. discussed case with Dr. Scott. patient did have a STEMI which he was admitted for and treated for at [facility] in July. We do not have any EKGs on file for comparison therefore reached out to [facility]. Previous EKG for comparison. Patient reports that he must leave the emergency room as he has other outside business to take care of, he states that he is feeling well, does not want to be here any longer. I discussed with patient that we are unable to confirm whether or not these EKG changes are new or old or secondary to the previous VT he had several months ago. He is aware that if he leaves prior to us confirming whether or not this is old or new, he is at risk for heart attack, stroke, or deadly illness. He understands the risks of the consequences of leaving. Patient signed AMA. Was able to obtain [facility]which has no inverted T-waves in V1 and V2 however does have slight elevation in V1 and V2. Dr. Scott believes that this could be from post VT changes. Given that patient presented with a mechanical fall, and he is feeling well with no chest pain this is likely unrelated. This is unlikely ACS. Differential Diagnosis Differential Diagnoses: The differential diagnosis associated with the presentation includes ICH, closed head injury, orthostatic hypotension Admission/Observation Consideration of admission/observation: Escalation of care including admission/observation considered Lab Data MDM Lab Attestation statement: I reviewed the patient's lab results. No leukocytosis, normocytic anemia with an H&H of 12.7/37.9, chemistry revealing slight elevation in creatinine at 1.7. Point of care 153, AST ALT slightly elevated at 54 and 68, troponin 10.3 10/01/24 08:28 10/01/24 08:28 Labs: Lab Results 10/01/24 10/01/24 10/01/24 Range/Units 08:28 08:46 11:20 WBC 9.5 (4.8-10.8) X10*3/uL RBC 4.48 L (4.60-5.80) X10*6/uL Hgb 12.7 L (14.0-18.0) g/dl Hct 37.9 L (42.0-52.0) % MCV 84.6 (80.0-98.0) fL MCH 28.3 (27.0-33.0) pg MCHC 33.5 (31.0-36.0) g/dl RDW 14.5 (11.0-16.0) % Plt Count 195 D (160-400) X10*3/uL MPV 9.7 (9.4-12.4) fL Immature Gran % (Auto) 0.7 H (0.0-0.4) % Neut % (Auto) 68.7 (45-73) % Lymph % (Auto) 20.6 (20-40) % Cobb % (Auto) 8.1 (2-11) % Eos % (Auto) 1.4 (0-4) % Baso % (Auto) 0.5 (0-2) % Lymph # (Auto) 2.0 (1.2-4.9) X10*3/uL Cobb # (Auto) 0.8 (0.1-1.2) X10*3/uL Eos # (Auto) 0.1 (0.0-0.4) X10*3/uL Baso # (Auto) 0.1 (0.0-0.2) X10*3/uL Abs Immat Gran (auto) 0.07 H (0.00-0.03) X10*3/uL Absolute Neuts (auto) 6.5 (2.0-8.3) x10*3/uL Absolute Nucleated RBC 0.000 (0.0-0.012) X10*3/uL Nucleated RBC % (auto) 0.0 (0.0-0.2) /100WBC Sodium 138 (135-145) mmol/L Potassium 4.3 (3.3-5.1) mmol/L Chloride 111 H (96-108) mmol/L Carbon Dioxide 19 L (22-29) mmol/L Anion Gap 12 (12-20) BUN 32 H (9-16) mg/dL Creatinine 1.75 H (0.5-1.4) mg/dL Estim Creat Clear Calc 35.6 Estimated GFR 38 POC Glucose 154 H (60-115) mg/dL Random Glucose 153 H (60-115) mg/dL Calcium 8.9 D (8.4-10.2) mg/dL Total Bilirubin 0.4 (0.0-1.0) mg/dL AST 54 H (5-37) U/L ALT 68 H (0-40) U/L Alkaline Phosphatase 93 (39-117) U/L Troponin I High Sens 10.3 11.7 (<3.5-35.0) ng/L Total Protein 6.7 (6.5-8.0) g/dL Albumin 4.1 (3.5-5.0) g/dL Independent Interpretation I performed an independent interpretation of an: EKG Interpretation: normal sinus rhythm at a ventricular rate of 60 beats per minute. he does have inverted T-waves noted in AVR, and aVL, as well as inverted T-waves noted in V1, and V2. Radiology Impression Discussion of test interpretation with radiology: I have reviewed the radiologist's reading. Radiologist Impression: FINDINGS: No acute cortical disruption, bony calvarium or skull base. No gross hematoma, intraconal or extraconal compartments of the orbits. No acute intracranial hemorrhage, mass effect, midline shift, hydrocephalus or herniation. Shaw-white matter differentiation is normal. There is a subcortical white matter hypodensity in the left frontal superior gyrus. Old lacunar infarct, left midline [place]. Sellar/suprasellar region demonstrated no gross masses. Craniocervical junction demonstrates normal position of the cerebellar tonsils. Calcified plaques in the cavernous supraclinoid segments both ICAs and V3/V4 segments of the vertebral arteries. No air-fluid levels in the included paranasal sinuses. Tympanic cavities and mastoid cells are aerated. Pneumatized petrous apices, congenital. CT/CT head/brain wo IV con IMPRESSION: No acute fracture, bony calvarium. No acute intracranial hemorrhage. Old lacunar infarct, left midline [place]. Small focal encephalomalacia, left frontal superior gyrus. Consider prior vascular insult, left SHERMAN territory. Electronically signed by: Willy Vera MD 10/01/2024 08:[address]/CT cervical spine wo IV con IMPRESSION: Multilevel cervical spondylosis without acute fracture or trauma-related listhesis. Fleischner guidelines were followed. Electronically signed by: Willy Vera MD 10/01/2024 09:03 AM EDT RP Dictated By: Willy Causey MD Discharge Plan Discharge Clinical Impression: Fall Patient Disposition: Left Against Medical Advice Instructions: Fall Prevention (ED) Additional Instructions: You were seen in the emergency department after a fall. You do have EKG changes here in the emergency department however this could be old due to your recent heart attack you had. We were awaiting records from [facility] however you had to leave prior to us receiving these. Given that we are unable to guarantee that this is a new EKG change, you signing against medical advice. Your CAT scans do not show any new injury from the falls that occurred today. You do have old incidental findings, which may indicate that you may have had a previous stroke. We can not guarantee that any life-threatening illness can occur including but not limited to serious injury and or . If any new or worsening symptoms occur including but not limited to chest pain, shortness of breath, please seek emergent care. Prescriptions: No Action lisinopril 30 mg tablet 30 mg PO DAILY Qty: 90 3RF (DME) FreeStyle Lite Strips Strip See Rx Instructions .ROUTE .MEDSUPPLY Qty: 100 11RF Rx Instructions: As directed test blood glucose 1-2 times daily (DME) blood-glucose meter [FreeStyle Lite Meter] Kit See Rx Instructions .ROUTE .MEDSUPPLY Qty: 1 0RF Rx Instructions: As directed test blood glucose daily (DME) lancets [FreeStyle Lancets] 28 gauge misc See Rx Instructions .ROUTE .MEDSUPPLY Qty: 100 11RF Rx Instructions: As directed test blood glucose 1-2 times a day indomethacin 50 mg capsule 50 mg PO BID Qty: 180 0RF Rx Instructions: administer with food or milk aspirin [Adult Aspirin Regimen] 81 mg tablet,delayed release (DR/EC) 81 mg PO DAILY carvedilol 12.5 mg tablet 12.5 mg PO BID Qty: 180 3RF rosuvastatin 40 mg tablet 40 mg PO DAILY Qty: 90 3RF Brilinta 90 mg tablet 90 mg PO BID Qty: 180 3RF ezetimibe 10 mg tablet 10 mg PO DAILY Qty: 90 3RF metformin 500 mg tablet 1,000 mg PO BID Qty: 180 1RF Stand Alone Forms: Against Medical Advice Interventions: ED Discharge Assessment Last Done: 10/01/24 13:38 Discharge Date/Time: 10/01/24 13:42 Print Language: Hebrew
--- NOTE | 2024-10-01 08:15 | ECG_ITS ---
Test Reason : SYNCOPE Blood Pressure : */* mmHG Vent. Rate : 60 BPM Atrial Rate : 60 BPM P-R Int : 180 ms QRS Dur : 92 ms QT Int : 404 ms P-R-T Axes : 50 50 84 degrees QTcB Int : 404 ms Normal sinus rhythm Anterior infarct , age undetermined Abnormal ECG When compared with ECG of 01-May-2019 13:55, T wave inversion now evident in Anterior leads Referred By: Generic ED Physician Electronically Signed By: SARITA MELLO MD
--- OUTSIDE RECORDS SUMMARY | 2024-10-01 08:18 | XMS_ITS | Continuity of Care Document ---
Author Name [facility] Organization [facility] Care Team Providers Care Seal Mixer Name Role Phone [facility] Unavailable Unavailable Problems Combined list of problems from Department of Defense and Veterans Affairs facilities. It does not include entries that were removed or entered in error. Problem Status Onset Date Problem Type Date of Resolution Comments Source Diagnosis: ICD-10-CM Z02.89 Encounter for other administrative examinations Active Diagnosis [facility] [place] [facility] Immunizations Combined list of available immunizations from the Department of Defense and Veterans Affairs facilities. Immunization Series Date Given Administered By Site Reaction Lot Number CVX Code Drug Cable Television Installer Status Comments Source influenza virus vaccine, split virus (incl. purified surface antigen)-reti red CODE 1 2004 Unknown, Provider [id number] Sanofi Pasteur ([facility]) complet ed influenza virus vaccine, split virus (incl. purified surface antigen)- retired CODE DoD influenza virus vaccine, whole virus 1 2002 Unknown, Provider [id number] [employer] (PWJ) complet ed influenza virus vaccine, whole virus DoD tuberculin skin test; purified protein derivative solution, intradermal 1 2002 Unknown, Provider [id number] Sanofi Pasteur ([facility]) complet ed tuberculi n skin test; purified protein derivativ e solution, intraderm al DoD influenza virus vaccine, whole virus 1 2002 Unknown, Provider [id number] [employer] (PWJ) complet ed influenza virus vaccine, whole virus DoD influenza virus vaccine, whole virus 1 2001 Unknown, Provider [id number] Sanofi Pasteur ([facility]) complet ed influenza virus vaccine, whole virus DoD meningococcal polysaccharid e vaccine (MPSV4) 1 2001 Unknown, Provider [id number] Sanofi Pasteur ([facility]) complet ed meningoco ccal polysacch aride vaccine (MPSV4) DoD typhoid vaccine, parenteral, other than acetone-kille d, dried 1 2001 Unknown, Provider [id number] Sanofi Pasteur ([facility]) complet ed typhoid vaccine, parentera l, other than acetone-k illed, dried DoD tuberculin skin test; purified protein derivative solution, intradermal 1 2001 Unknown, Provider [id number] [facility] ([facility]) complet ed tuberculi n skin test; purified protein derivativ e solution, intraderm al DoD hepatitis B vaccine, adult dosage 3 2001 Unknown, Provider [id number] Merck ([facility]) complet ed hepatitis B vaccine, adult dosage DoD influenza virus vaccine, whole virus 1 2000 Unknown, Provider [id number] 16 [facility] ([facility]) complet ed influenza virus vaccine, whole virus DoD hepatitis B vaccine, adult dosage 2 2000 Unknown, Provider [id number] Merck ([facility]) complet ed hepatitis B vaccine, adult dosage DoD yellow fever vaccine 1 2000 Unknown, Provider [id number] 37 [facility] ([facility]) complet ed yellow fever vaccine DoD hepatitis B vaccine, adult dosage 1 2000 Unknown, Provider [id number] Merck ([facility]) complet ed hepatitis B vaccine, adult dosage DoD tuberculin skin test; purified protein derivative solution, intradermal 1 2000 Unknown, Provider [id number] [facility] ([facility]) complet ed tuberculi n skin test; purified protein derivativ e solution, intraderm al DoD influenza virus vaccine, whole virus 2 1999 Unknown, Provider [id number] 16 Agustín ([facility]) complet ed influenza virus vaccine, whole virus DoD typhoid vaccine, parenteral, other than acetone-kille d, dried 1 1999 Unknown, Provider [id number] Bello ([facility]) complet ed typhoid vaccine, parentera l, other than acetone-k illed, dried DoD influenza virus vaccine, whole virus 1 1998 Unknown, Provider [id number] 16 Agustín ([facility]) complet ed influenza virus vaccine, [...] vaccine, adult dosage 2 1998 Unknown, Provider [id number] 52 [employer] ([facility]) complet ed hepatitis A vaccine, adult dosage DoD measles, mumps and rubella virus vaccine 2 1997 Unknown, Provider [id number] Turner ([facility]) complet ed measles, mumps and rubella virus vaccine DoD influenza virus vaccine, whole virus 1 1997 Unknown, Provider [id number] 16 Bello ([facility]) complet ed influenza virus vaccine, whole virus DoD hepatitis A vaccine, adult dosage 1 1997 Unknown, Provider [id number] 52 [facility] ([facility]) complet ed hepatitis A vaccine, adult dosage DoD tuberculin skin test; purified protein derivative solution, intradermal 1 1997 Unknown, Provider [id number] Bello (CON) complet ed tuberculi n [...] ADM Date DC Date Status Disposition Source [facility] [id number] Diagnos is: ICD-10- CM Z02.89 Encount er for other adminis trative examina BATOOL Luna 01/22 [facility] [place] [facility] Social History Combined list of available smoking, tobacco, and other social history from Department of Defense and Veterans Affairs facilities. Social History Type Response Date Comment Sour e This section is an empty social history section. DoD
--- NOTE | 2024-10-01 08:32 | MHC.EDTECH ---
attemptedto do ekg pt was taken to ct, pending return to room to reattempt
[2024-10-01 08:35] LABS: MANUAL DIFF FLAG NO
[2024-10-01 08:45] LABS: Basophils Absolute Auto 0.1 X10*3/uL (0.0-0.2); Basophils Percent Auto 0.5 % (0-2); Eosinophils Absolute Auto 0.1 X10*3/uL (0.0-0.4); Eosinophils Percent Auto 1.4 % (0-4); Hematocrit 37.9 % (42.0-52.0); Hemoglobin 12.7 g/dl (14.0-18.0); Imm Gran Abs Auto 0.07 X10*3/uL (0.00-0.03); Imm Gran Pct Auto 0.7 % (0.0-0.4); Lymphocytes Percent Auto 20.6 % (20-40); Mean Corpuscular HGB Conc 33.5 g/dl (31.0-36.0); Mean Corpuscular Hemoglobin 28.3 pg (27.0-33.0); Mean Corpuscular Volume 84.6 fL (80.0-98.0); Mean Platelet Volume 9.7 fL (9.4-12.4); Monocytes Absolute Auto 0.8 X10*3/uL (0.1-1.2); Monocytes Percent Auto 8.1 % (2-11); Neutrophils Absolute Auto 6.5 x10*3/uL (2.0-8.3); Neutrophils Percent Auto 68.7 % (45-73); Platelet Count 195 X10*3/uL (160-400); Red Blood Count 4.48 X10*6/uL (4.60-5.80); Red Cell Distribution Width 14.5 % (11.0-16.0); White Blood Count 9.5 X10*3/uL (4.8-10.8)
[2024-10-01 08:49] LABS: Glucose, Whole Blood 154 mg/dL (60-115)
[2024-10-01 09:01] LABS: Alanine Aminotransferase 68 U/L (0-40); Albumin Level 4.1 g/dL (3.5-5.0); Alkaline Phosphatase 93 U/L (39-117); Anion Gap 12 (12-20); Aspartate Amino Transferase 54 U/L (5-37); Bilirubin Total 0.4 mg/dL (0.0-1.0); Blood Urea Nitrogen 32 mg/dL (9-16); Calcium 8.9 mg/dL (8.4-10.2); Carbon Dioxide 19 mmol/L (22-29); Chloride 111 mmol/L (96-108); Creatinine Clr Calc Pharmacy 35.6; Estimated Glomerular Filt Rate 38; Glucose Random 153 mg/dL (60-115); Potassium 4.3 mmol/L (3.3-5.1); Sodium 138 mmol/L (135-145); Total Protein 6.7 g/dL (6.5-8.0)
[2024-10-01 09:20] VITALS: BP 148/66; PULSE 63
[2024-10-01 09:22] VITALS: BP 161/75; PULSE 84
[2024-10-01 09:24] VITALS: BP 159/70; PULSE 66
[2024-10-01] MEDS: 0.9 % Sodium Chloride 1,000 ML 999 ML IV (09:26)
--- NOTE | 2024-10-01 09:29 | PC.NURSE ---
Pt noted to have dried blood to left nare, pt denies any h/a, lightheadedness or dizziness. Provider notifed.
[2024-10-01 09:50] LABS: Troponin-I High Sensitivity 10.3 ng/L (<3.5-35.0)
[2024-10-01 11:50] LABS: Troponin-I High Sensitivity 11.7 ng/L (<3.5-35.0)
[2024-10-01 13:38] VITALS: BP 159/70; PULSE 66; RESP 18; TEMP 36; O2SAT 96
== END 2024-10-01 13:42 | disposition left against medical advice (07) ==
PROVIDERS: Physician Assistant Medical; Emergency Provider Emergency Medicine; PCP Internal Medicine
DX: Z04.3 Encounter for examination and observation following other accident (principal); Z91.81 History of falling; Z53.29 Procedure and treatment not carried out because of patient's decision for other reasons; E11.9 Type 2 diabetes mellitus without complications; I10 Essential (primary) hypertension; E78.00 Pure hypercholesterolemia, unspecified; Z79.02 Long term (current) use of antithrombotics/antiplatelets; Z79.82 Long term (current) use of aspirin; Z79.899 Other long term (current) drug therapy; Z79.84 Long term (current) use of oral hypoglycemic drugs
CPT/HCPCS: 36415; 70450; 72125; 80053; 82947; 84484; 85025; 93005; 96360; 96361; 99285

== ENCOUNTER → 2024-10-01 08:15 | Outpatient (BNV) | payer OTHER, SELFPAY | PROVIDERS: Emergency Provider Emergency Medicine; PCP Internal Medicine; Visit Provider Internal Medicine Cardiovascular Disease | DX: R94.31 Abnormal electrocardiogram [ECG] [EKG] (principal); R55 Syncope and collapse | CPT/HCPCS: 93010 ==

== ENCOUNTER → 2024-10-01 08:21 | Outpatient (BNV) | payer OTHER, SELFPAY | PROVIDERS: Emergency Provider Emergency Medicine; PCP Internal Medicine; Visit Provider Radiology Diagnostic Radiology | DX: M47.812 Spondylosis without myelopathy or radiculopathy, cervical region (principal); G93.89 Other specified disorders of brain | CPT/HCPCS: 70450; 72125 ==

== ENCOUNTER 2024-11-16 08:02 | Outpatient (REF) | payer OTHER, SELFPAY ==
--- OUTSIDE RECORDS SUMMARY | 2024-11-16 08:05 | XMS_ITS | Continuity of Care Document ---
Author Name [facility] Organization [facility] Care Team Providers Care Gas Operation Manager Name Role Phone [facility] Unavailable Unavailable Problems Combined list of problems from Department of Defense and Veterans Affairs facilities. It does not include entries that were removed or entered in error. Problem Status Onset Date Problem Type Date of Resolution Comments Source Diagnosis: ICD-10-CM Z02.89 Encounter for other administrative examinations Active Diagnosis [facility] Immunizations Combined list of available immunizations from the Department of Defense and Veterans Affairs facilities. Immunization Series Date Given Administered By Site Reaction Lot Number CVX Code Drug Postbed Stitcher Status Comments Source influenza virus vaccine, split virus (incl. purified surface antigen)-reti red CODE 1 2004 Unknown, Provider [id number] Sanofi Pasteur ([facility]) complet ed influenza virus vaccine, split virus (incl. purified surface antigen)- retired CODE DoD influenza virus vaccine, whole virus 1 2002 Unknown, Provider [id number] [employer] (PWJ) complet ed influenza virus vaccine, whole virus DoD tuberculin skin test; purified protein derivative solution, intradermal 1 2002 Unknown, Provider [id number] Sanofi Pasteur ([facility]) complet ed tuberculi n skin test; purified protein derivativ e solution, intraderm al DoD influenza virus vaccine, whole virus 1 2002 Unknown, Provider [id number] [employer] (PWJ) complet ed influenza virus vaccine, whole virus DoD influenza virus vaccine, whole virus 1 2001 Unknown, Provider [id number] Sanofi Pasteur ([facility]) complet ed influenza virus vaccine, whole virus DoD meningococcal polysaccharid e vaccine (MPSV4) 1 2001 Unknown, Provider [id number] Sanofi Pasteur ([facility]) complet ed meningoco ccal polysacch aride vaccine (MPSV4) DoD typhoid vaccine, parenteral, other than acetone-kille d, dried 1 2001 Unknown, Provider [id number] Sanofi Pasteur ([facility]) complet ed typhoid vaccine, parentera l, other than acetone-k illed, dried DoD tuberculin skin test; purified protein derivative solution, intradermal 1 2001 Unknown, Provider [id number] [facility]) complet ed tuberculi n skin test; purified protein derivativ e solution, intraderm al DoD hepatitis B vaccine, adult dosage 3 2001 Unknown, Provider [id number] Merck ([facility]) complet ed hepatitis B vaccine, adult dosage DoD influenza virus vaccine, whole virus 1 2000 Unknown, Provider [id number] 16 [facility] ([facility]) complet ed influenza virus vaccine, whole virus DoD hepatitis B vaccine, adult dosage 2 2000 Unknown, Provider [id number] Merck ([facility]) complet ed hepatitis B vaccine, adult dosage DoD yellow fever vaccine 1 2000 Unknown, Provider [id number] [facility] ([facility]) complet ed yellow fever vaccine DoD hepatitis B vaccine, adult dosage 1 2000 Unknown, Provider [id number] Merck ([facility]) complet ed hepatitis B vaccine, adult dosage DoD tuberculin skin test; purified protein derivative solution, intradermal 1 2000 Unknown, Provider [id number] [facility] ([facility]) complet ed tuberculi n skin test; purified protein derivativ e solution, intraderm al DoD influenza virus vaccine, whole virus 2 1999 Unknown, Provider [id number] 16 Agustín ([facility]) complet ed influenza virus vaccine, whole virus DoD typhoid vaccine, parenteral, other than acetone-kille d, dried 1 1999 Unknown, Provider [id number] Bello ([facility]) complet ed typhoid vaccine, parentera l, other than acetone-k illed, dried DoD influenza virus vaccine, whole virus 1 1998 Unknown, Provider [id number] 16 Agustín ([facility]) complet ed influenza virus vaccine, whole [...] vaccine, adult dosage 2 1998 Unknown, Provider [id number] 52 [employer]antr[employer] ([facility]) complet ed hepatitis A vaccine, adult dosage DoD measles, mumps and rubella virus vaccine 2 1997 Unknown, Provider [id number] Turner ([facility]) complet ed measles, mumps and rubella virus vaccine DoD influenza virus vaccine, whole virus 1 1997 Unknown, Provider [id number] 16 Bello ([facility]) complet ed influenza virus vaccine, whole virus DoD hepatitis A vaccine, adult dosage 1 1997 Unknown, Provider [id number] 52 [facility] ([facility]) complet ed hepatitis A vaccine, adult dosage DoD tuberculin skin test; purified protein derivative solution, intradermal 1 1997 Unknown, Provider [id number] Bello ([facility]) complet ed tuberculi n [...] ADM Date DC Date Status Disposition Source [facility] Outpatient Encounter [id number] Diagnos is: ICD-10- CM Z02.89 Encount er for other adminis trative examina BATOOL Luna 01/22 [facility] Social History Combined list of available smoking, tobacco, and other social history from Department of Defense and Veterans Affairs facilities. Social History Type Response Date Comment Sour e This section is an empty social history section. DoD
[2024-11-16 09:05] LABS: Hematocrit 38.4 % (42.0-52.0); Hemoglobin 12.2 g/dl (14.0-18.0); Mean Corpuscular HGB Conc 31.8 g/dl (31.0-36.0); Mean Corpuscular Hemoglobin 27.4 pg (27.0-33.0); Mean Corpuscular Volume 86.3 fL (80.0-98.0); NRBC Abs Auto 0.000 X10*3/uL (0.0-0.012); NRBC Pct Auto 0.0 /100WBC (0.0-0.2); Platelet Count 197 X10*3/uL (160-400); Red Blood Count 4.45 X10*6/uL (4.60-5.80); White Blood Count 9.7 X10*3/uL (4.8-10.8)
[2024-11-16 09:40] LABS: Alanine Aminotransferase 70 U/L (0-40); Albumin Level 4.3 g/dL (3.5-5.0); Alkaline Phosphatase 93 U/L (39-117); Anion Gap 14 (12-20); Aspartate Amino Transferase 61 U/L (5-37); Blood Urea Nitrogen 24 mg/dL (9-16); Calcium 9.0 mg/dL (8.4-10.2); Carbon Dioxide 22 mmol/L (22-29); Chloride 109 mmol/L (96-108); Cholesterol 77 mg/dL (<200); Estimated Glomerular Filt Rate 44; HDL Cholesterol 28 mg/dL (>40); Potassium 4.5 mmol/L (3.3-5.1); Sodium 140 mmol/L (135-145); Total Protein 6.9 g/dL (6.5-8.0); Triglycerides 163 mg/dL (<150)
== END 2024-11-16 08:03 | disposition home or self-care (01) ==
LOC: HO.LAB 08:02
PROVIDERS: PCP Internal Medicine
DX: I25.10 Atherosclerotic heart disease of native coronary artery without angina pectoris (principal)
CPT/HCPCS: 36415; 80048; 80061; 80076; 85027

== ENCOUNTER 2024-12-07 07:00 | Outpatient (RCR) | payer OTHER, SELFPAY ==
[2024-09-13 11:02] LABS: Glucose, Whole Blood 186 mg/dL (60-115)
== END 2024-12-13 07:40 | disposition home or self-care (01) ==
LOC: HO.CR 07:00
PROVIDERS: PCP Internal Medicine
DX: I25.10 Atherosclerotic heart disease of native coronary artery without angina pectoris (principal)
CPT/HCPCS: 82947; 93798

== ENCOUNTER 2024-12-25 07:50 | Outpatient (REF) | payer OTHER, SELFPAY | END 2024-12-25 07:51 | disposition home or self-care (01) | LOC: HO.LAB 07:50 | PROVIDERS: PCP Internal Medicine | DX: I21.3 ST elevation (STEMI) myocardial infarction of unspecified site (principal) | CPT/HCPCS: 36415; 85027 ==

== ENCOUNTER 2024-12-27 14:19 | Outpatient (AMB) | payer OTHER, SELFPAY ==
--- NOTE | 2024-12-27 14:29 | A.OFFPC_ITS ---
Vital Signs 12/27/24 14:30 Height 5 ft 6 in Weight 177 lb BMI 28.6 BP 130/70 Blood Pressure Location Lt brachial Position Sitting Pulse 73 Pulse Source Pulse Oximeter Temp 97.1 F Temp Source Temporal Artery Scan Pulse Oximetry (%) 97 Oxygen Delivery Method Room Air Intake Visit Reasons: discuss back pain Intake Note: Patient is here to follow up on Discuss back pain. Frame Coverer Required: No Assembler For Puller Over Machine: Not Required per policy Accompanied by: Self / Same As Patient Allergies oxycodone (OXYCODONE) Adverse Reaction (Severe, Verified 12/27/24 14:30) SEVERE VOMITNG Tobacco use date assessed: 12/27/24 Fall risk assessment: 1 Fall in past year Last assessed Fall Risk: 12/27/24 Dental Screening Dental Screen Date: 08/30/24 [facility] Medical History Foot pain, left On beta timoteo at home Type 2 diabetes mellitus without complications Lab test negative for COVID-19 virus Hx of gout Back pain Overweight (BMI 25.0-29.9) Osteoarthritis of hips, bilateral Benign essential hypertension Pure hypercholesterolemia Coronary artery disease Cataract Surgical History History of heart artery stent H/O tooth extraction History of cataract surgery Hx of coronary angioplasty History of right hip replacement History of colonoscopy (~01/20/22) History of hip replacement Family History Father Diabetes Kidney failure Mother Colon cancer Social History Housing: House Are you a primary careers adviser to a significant other at home: No Do you presently have visiting nurse or other home services: No Alcohol intake: current Alcohol intake frequency: holidays/special occasions only Patient Tobacco Use Status: Former Tobacco user Tobacco use type: Cigarette e-Cigarette/Vaping Use: Never Used Second Hand Smoke Exposure: Yes service: Yes Current occupational status: retired Cognitive needs: Yes (cane) Hearing needs: No Vision needs: Yes (reading glasses) Questionnaire Thrive Questionnaire Date Thrive assessed: 08/23/24 I am a: Patient What is your living situation today?: I have a steady place to live Within the past 12 months, did the food you bought not last and you didn't have the money to get more?: Never true Within the past 12 months, did you worry whether your food would run out before you got money to buy more?: Never true Do you have trouble paying for medicines?: No Do you have trouble getting transportation to medical appointments?: No Do you have trouble paying your heating and electricity bill?: I choose not to answer this question Do you have trouble taking care of your child, family member or friend?: No Do you have trouble with day-to-day activities such as bathing, preparing meals, shopping, managing finances, etc.?: No Are you currently unemployed and looking for a job?: No Are you interested in more education?: No Please select the resources that you would like help with: None Currently or been in a relationship where the following occur: No concerns reported THRIVE Score: 0 ALEXIS-7 AMB Questionnaire ALEXIS-7 Date ALEXIS - 7 assessed: 08/30/24 Source: Developed by Drs. Panda Yun, Yesenia Benz, Johnson Bedoya and colleagues, with an educational batool from [employer]. Physical exam (Primary Care) Vital Signs: Last Vital Signs Temp 97.1 F 12/27/24 14:30 Pulse 73 12/27/24 14:30 BP 130/70 12/27/24 14:30 Pulse Ox 97 12/27/24 14:30 Oxygen Delivery Method Room Air 12/27/24 14:30 BMI result Body Mass Index 28.6 Tobacco/Smoking Status: Tobacco use Status Tobacco use date assessed 12/27/24 12/27/24 14:37 Patient Tobacco Use Status Former Tobacco user 12/27/24 14:37 Tobacco use type Cigarette 12/27/24 14:37 e-Cigarette/Vaping Use Never Used 12/27/24 14:37 Thrive Assessment: Date of Thrive Assessment Date Thrive assessed 08/23/24 12/27/24 14:37 Currently or been in a relationship where the following occur: No concerns reported Results AMB Hemoglobin A1c AMB Hemoglobin A1c 6.6 % Last Edit by RICCI Maciel on 12/27/24 14:42 Results Reviewed Results Reviewed: Laboratory Last Values Hgb A1c (Clinic) 6.6 % (4.0-6.0) H 12/27/24 14:29 Coding Level of Care Code Est Pt Level 4 (85662) Complex EM visit Add On G2211 Diagnoses Low back pain M54.50 Assessment & Plan Assessment & Plan (1) Low back pain: Code(s): M54.50 - Low back pain, unspecified Plan: History of Present Illness - The patient is a 74-year-old male presenting with low back pain. - Reports severe lower back pain leading to early discharge from rehabilitation. - Pain management has been challenging due to the ineffectiveness of lidocaine patches and Tylenol. - The patient is on Brilinta, which poses a bleeding risk, complicating the use of stronger pain medications. - Reports nail detachment on the left big toe, possibly related to gout, with onset in June. Social History Review of Systems - Musculoskeletal: Reports severe lower back pain, difficulty standing up, and nail detachment on the left big toe. Physical Exam General: Cooperative and healthy appearing Nutritional Appearance: Well nourished Orientation/consciousness: Patient oriented x3 Limitations: No limitations Head: Normal to inspection General: Appearance normal, both eyes and all related structures Neck: Normal visual inspection Chest: Normal palpation of entire chest wall Respiratory: N ormal respiratory effort Neurology: Patient oriented x3, reports lower back pain, difficulty standing up straight due to sharp pain, and issues with left big toe nail starting to come off. Results Plan - Start physical therapy to address low back pain and enhance mobility. - Use a topical gel for pain relief, mindful of the bleeding risk due to Brilinta. - If physical therapy and topical treatments do not suffice, proceed with an MRI to assess the need for injections. - Observe the nail detachment on the left big toe for proper healing. Discussion Notes I discussed with the patient the management of his low back pain, emphasizing the importance of physical therapy and the use of a topical gel due to the bleeding risk associated with Brilinta. We also considered the possibility of an MRI if current treatments are ineffective. Additionally, we reviewed the nail detachment on his left big toe and the expected healing process. Patient Instructions - Attend physical therapy sessions as scheduled to help with back pain. - Apply the prescribed topical gel for pain relief. - Monitor the condition of the left big toe and report any changes. - Follow up in three months or sooner if symptoms worsen. Orders: Orders AMB Hemoglobin A1c Today E11.9 - Type 2 diabetes mellitus without complications PT Evaluation and Treatment Today M54.50 - Low back pain, unspecified Medications: New diclofenac sodium 1% (Voltaren Arthritis Pain) apply to single knee, ankle, foot; for foot includes sole/toes/top of foot 4 grams topical QID 100 grams 0RF
[2024-12-27 14:30] VITALS: BP 130/70; PULSE 73; TEMP 36.2; O2SAT 97; BMI 28.6
== END 2024-12-27 14:53 | disposition home or self-care (01) ==
LOC: HO.HMCH 14:19
PROVIDERS: PCP Internal Medicine; Visit Provider Internal Medicine
DX: M54.50 Low back pain, unspecified (principal); E11.9 Type 2 diabetes mellitus without complications

== ENCOUNTER → 2024-12-27 14:19 | Outpatient (BNVA) | payer OTHER, SELFPAY | PROVIDERS: PCP Internal Medicine; Visit Provider Internal Medicine | DX: M54.50 Low back pain, unspecified (principal); E11.9 Type 2 diabetes mellitus without complications | CPT/HCPCS: 83036; 99212 ==

== ENCOUNTER → 2025-02-04 09:59 | Outpatient (REF) | payer OTHER, SELFPAY ==
--- NOTE | 2025-02-04 10:04 | CA_ITS ---
Transthoracic Echocardiogram Patient (Last, First, Middle): Willi Avila, Gender: M Date of : 1950 Age: 74 Procedure Date: 02/04/2025 Procedure Type: Transthoracic Echocardiogram Location: OP Height: 170.18 cm Weight: 79.38 kg BSA: 1.91 m2 Heart Rate: 69 bpm BP: 122 / 70 mmHg Screw Machine Tender: Referring MD: Ranjit Foreman NP Symptoms: I25.10 - Atherosclerotic heart disease of [place] coronary artery without... Study Quality: Adequate ECG Rhythm: Sinus Conclusions: - The left ventricular systolic function is normal. The calculated ejection fraction is 55% by biplane method. - The apical inferior and apical septum segments are hypokinetic. - No obvious valvular pathology seen on this study. Findings Left Ventricle Normal left ventricular cavity size. There is mildly increased left ventricular wall thickness. The left ventricular systolic function is normal. The calculated ejection fraction is 55% by biplane method. There is no evidence of regional wall motion abnormalities. Diastolic function is normal for age. Wall Motion Rest Echo Findings The apical inferior and apical septum segments are hypokinetic. Right Ventricle Normal right ventricular cavity size and systolic function. Atria Both atria are normal in size. Aortic Valve There is a normal trileaflet aortic valve. There is no aortic valve stenosis. There is no aortic valve regurgitation. Mitral Valve The mitral valve appears normal. There is trace mitral valve regurgitation. There is no mitral valve stenosis. Pulmonic Valve The pulmonic valve is likely normal. Tricuspid Valve There is trace tricuspid valve regurgitation. There is no evidence of pulmonary hypertension. Great Vessels The asc aorta is normal in size. Venous The inferior vena cava is normal in size and collapses greater than 50% with inspiration. Pericardium/Pleural There is no evidence of pericardial effusion. Prior Study Comparison No prior study available for comparison. Recommendations, Care & Conclusions No obvious valvular pathology seen on this study. Measurements 2D Linear Measurements IVSd: 1.21 0.6-0.9/0.6-1.0 cm LVIDd: 3.60 3.9-5.3/4.2-5.9 cm LVIDd Index: 1.88 2.4-3.2/2.2-3.1 cm/m2 LVIDs: 2.44 2.0-3.6 cm LVPWd: 1.21 0.7-1.1 cm LA Diam: 2.90 2.7-3.8/3.0-4.0 cm LAIDs Index: 1.52 1.5-2.3 cm/m2 LV Mass: 178.37 67-162/88-224 g LV Mass Index: 93.39 43-95/49-115 g/m2 LVOT Diam: 2.10 3.0+(-)1.3 cm 2D Systolic Function EF 4C: 54.30 >55% EF 2C: 50.60 >55% EF BiP: 55.30 >55% Mitral Valve MV Pk E: 0.42 MV PK A: 0.85 MV Decel Time: 247.00 E/A: 0.50 E'Lateral: 5.44 E'Medial: 6.64 E/E' Med: 6.40 E/E' Lat: 7.80 PHT: 72.00 MVA PHT: 3.06 Decel Webb: 1.71 Aortic Valve AoV Pk Greg: 0.96 AoV Mn Greg: 0.68 AoV VTI: 0.22 AoV Pk Grad: 4.00 Aov Mn Grad: 2.00 CHRISTIE Cont.VTI: 2.97 LVOT LVOT Pk Greg: 0.92 LVOT Mn Greg: 0.65 LVOT VTI: 0.19 LVOT Pk Grad: 3.00 LVOT Mn Grad: 2.00 LVOT Diam: 2.10 LVOT Area: 3.46 Diastolic Function MV Pk E: 0.42 MV Pk A: 0.85 E/A: 0.50 E'Medial: 6.64 E/E' Med: 6.40 E' Laterial: 5.44 E/E' Lat: 7.80 Right Ventricle TAPSE (mm): 21.40 TVS' Greg: 10.90 Tricuspid Valve TR Pk Greg: 1.25 TR Pk Grad: 6.00 RA Press: 3.00 RVSP: 9.00 Great Vessels Aorta Sinus of Valsalva: 3.10 2.0-3.5 cm Ao Asc: 2.90 2.1-3.4 cm Pulmonary Valve PV Pk Greg: 1.14 Peak PV Grad: 5.00 Updated in Other Vendor System with Status of Final Ion Loco MD electronically signed on 02/04/2025 4:07:08 PM with status of Final
== END ==
LOC: HO.CARD 09:59
PROVIDERS: PCP Internal Medicine
DX: I25.10 Atherosclerotic heart disease of native coronary artery without angina pectoris (principal)
CPT/HCPCS: 93306

== ENCOUNTER → 2025-02-04 10:04 | Outpatient (BNV) | payer OTHER, SELFPAY | PROVIDERS: PCP Internal Medicine; Visit Provider Internal Medicine | DX: I51.89 Other ill-defined heart diseases (principal) | CPT/HCPCS: 93306 ==

== ENCOUNTER 2025-02-20 09:48 | Outpatient (AMB) | payer OTHER, SELFPAY ==
[2025-02-20 10:01] VITALS: BP 110/60; PULSE 77; BMI 28.3
--- NOTE | 2025-02-20 10:01 | A.OFFVIS_ITS ---
Vital Signs 02/20/25 10:01 Height 5 ft 6 in Weight 175 lb 0.752 oz BMI 28.3 BP 110/60 Blood Pressure Location Lt brachial Position Sitting Pulse 77 Pulse Source Pulse Oximeter Intake Visit Reasons: 6m follow up Intake Note: 6 mth f/up Web Analytics Developer Required: No Accompanied by: Self / Same As Patient Allergies oxycodone (OXYCODONE) Adverse Reaction (Severe, Verified 12/27/24 14:30) SEVERE VOMITNG Medication List - Last Reconciled 02/20/25 by Rohit Covarrubias MD aspirin (Adult Aspirin Regimen) 81 mg PO DAILY blood sugar diagnostic (FreeStyle Lite Strips) As directed test blood glucose 1- 2 times daily blood-glucose meter (FreeStyle Lite Meter kit) As directed test blood glucose daily carvedilol 12.5 mg PO BID diclofenac sodium 1% (Voltaren Arthritis Pain) 4 grams topical QID ezetimibe 10 mg PO DAILY indomethacin 50 mg PO BID lancets (FreeStyle Lancets) As directed test blood glucose 1-2 times a day lisinopril 30 mg PO DAILY metformin 1,000 mg (2 x 500 mg) PO BID rosuvastatin 40 mg PO DAILY ticagrelor (Brilinta) 90 mg PO BID HPI Comments Details: [age] year gentleman who has history of coronary artery disease with angio plasty in 1996 at [facility]. Recent admission at [facility] in July 2024 when he presented with anterior ST-elevation SD. he had mid LAD occlusion which was treated with a 2.25 mm x 38 mm synergy XT stent post dilated with 2.5 and 3 mm balloons as per the report. He is currently on aspirin and Brilinta. He is tolerating them and has no bleeding or any concerns. Blood pressure is well controlled. On follow-up he has been doing well. No symptoms to report. No bleeding issues. [facility], [facility] Medical History Foot pain, left On beta timoteo at home Type 2 diabetes mellitus without complications Lab test negative for COVID-19 virus Hx of gout Back pain Overweight (BMI 25.0-29.9) Osteoarthritis of hips, bilateral Benign essential hypertension Pure hypercholesterolemia Coronary artery disease Cataract Surgical History History of heart artery stent H/O tooth extraction History of cataract surgery Hx of coronary angioplasty History of right hip replacement History of colonoscopy (~01/20/22) History of hip replacement Family History Father Diabetes Kidney failure Mother Colon cancer Social History Housing: House Are you a primary career services assistant to a significant other at home: No Do you presently have visiting nurse or other home services: No Alcohol intake: current Alcohol intake frequency: holidays/special occasions only Patient Tobacco Use Status: Former Tobacco user Tobacco use type: Cigarette e-Cigarette/Vaping Use: Never Used Second Hand Smoke Exposure: Yes service: Yes Current occupational status: retired Cognitive needs: Yes (cane) Hearing needs: No Vision needs: Yes (reading glasses) Review of Systems Const Denies chills, Denies fatigue, Denies fever(s), Denies frequent falls, Denies weakness, Denies weight gain and Denies weight loss ENT Denies dizziness Card Denies chest pain, Denies leg edema, Denies lightheadedness, Denies palpitations, Denies dyspnea and Denies dyspnea on exertion Resp Denies cough, Denies dyspnea and Denies dyspnea on exertion GI Denies hematochezia Musc Denies abnormal gait, Denies muscle weakness, Denies numbness, Denies radiating pain into limb and Denies tingling Neuro Denies abnormal gait, Denies dizziness, Denies frequent falls, Denies numbness, Denies tingling and Denies weakness Endo Denies fatigue and Denies palpitations Physical Exam Vital Signs: BMI result Body Mass Index 28.3 GENERAL APPEARANCE: in no acute distress, pleasant. NECK: no carotid bruit, no jugular venous distention. SKIN: no suspicious lesions, warm and dry. HEART: no murmurs, regular rate and rhythm. LUNGS: clear to auscultation bilaterally. ABDOMEN: soft, nontender. EXTREMITIES: no edema. PERIPHERAL PULSES: equal. NEUROLOGIC: No gross deficits, AAO X 3 Results Reviewed Results Reviewed: Echocardiography in February 2025 showing EF 55% with apical inferior and apical septal hypokinesis. Assessment & Plan Assessment & Plan (1) Benign essential hypertension: Code(s): I10 - Essential (primary) hypertension Category: Medical (2) Coronary artery disease: Comment: angioplasty w/stent X2-1996 LAD PCI July 2024 Code(s): I25.10 - Atherosclerotic heart disease of [place] coronary artery without angina pectoris Category: Medical Qualifiers: Coronary Disease-Associated Artery/Lesion type: [place] artery [place] vs. transplanted heart: [place] heart Associated angina: without angina Qualified Code(s): I25.10 - Atherosclerotic heart disease of [place] coronary artery without angina pectoris Plan 74-year-old gentleman who is here for follow-up. He has known history of coronary disease with previous angioplasty in 1996. July [address]-elevation SD and had primary PCI performed to LAD by Dr. Rizvi. He is on aspirin and Brilinta at this stage. Denying any exertional symptoms. No chest discomfort or shortness of breath. Blood pressure well controlled. No bleeding. Continue same medications for now. He will see us back in July. At that stage my plan is to stop the aspirin and Brilinta and start him on Plavix 75 mg daily. Continue rosuvastatin 40 mg daily Thank you for allowing me to participate in the care of your patient. Please feel free to contact me if you have any questions. Coding Level of Care Code Est Pt Level 4 (44375) Diagnoses Benign essential hypertension I10 Coronary artery disease involving [place] coronary artery of [place] heart without angina pectoris I25.10 Coronary Disease-Associated Artery/Lesion type: [place] artery [place] vs. transplanted heart: [place] heart Associated angina: without angina
== END 2025-02-20 10:14 | disposition home or self-care (01) ==
LOC: HO.HCS 09:48
PROVIDERS: PCP Internal Medicine; Visit Provider Internal Medicine Cardiovascular Disease
DX: I10 Essential (primary) hypertension (principal); I25.10 Atherosclerotic heart disease of native coronary artery without angina pectoris
CPT/HCPCS: 99214

== ENCOUNTER → 2025-02-20 09:48 | Outpatient (BNVA) | payer OTHER, SELFPAY | PROVIDERS: PCP Internal Medicine; Visit Provider Internal Medicine Cardiovascular Disease | DX: I10 Essential (primary) hypertension (principal); I25.10 Atherosclerotic heart disease of native coronary artery without angina pectoris | CPT/HCPCS: 99212 ==

== ENCOUNTER 2025-03-21 09:57 | Outpatient (AMB) | payer OTHER, SELFPAY ==
--- NOTE | 2025-03-21 10:55 | A.OFFPC_ITS ---
Vital Signs 03/21/25 10:56 03/21/25 11:08 Height 5 ft 6 in 5 ft 6 in Weight 174 lb 6 oz BMI 28.1 BP 138/60 Blood Pressure Location Lt brachial Lt brachial Position Sitting Sitting Respiration 16 Pulse 54 Pulse Source Pulse Oximeter Pulse Oximeter Temp 9.1 F L Temp Source Temporal Artery Scan Tympanic Pulse Oximetry (%) 100 Oxygen Delivery Method Room Air Room Air Intake Visit Reasons: 6mth f/u Intake Note: Patient is here to follow up on DM. General Farmworker Required: No Peer Health Promoter: Present Accompanied by: Spouse Allergies oxycodone (OXYCODONE) Adverse Reaction (Severe, Verified 03/21/25 11:25) SEVERE VOMITNG Medication List - Last Reconciled 03/21/25 by Andriy Reid MD aspirin (Adult Aspirin Regimen) 81 mg PO DAILY blood sugar diagnostic (FreeStyle Lite Strips) As directed test blood glucose 1- 2 times daily blood-glucose meter (FreeStyle Lite Meter kit) As directed test blood glucose daily carvedilol 12.5 mg PO BID ezetimibe 10 mg PO DAILY indomethacin 50 mg PO BID lancets (FreeStyle Lancets) As directed test blood glucose 1-2 times a day lisinopril 30 mg PO DAILY metformin 1,000 mg PO BID 90 days rosuvastatin 40 mg PO DAILY ticagrelor (Brilinta) 90 mg PO BID Tobacco use date assessed: 03/21/25 Fall risk assessment: No Falls in past year Last assessed Fall Risk: 03/21/25 Dental Screening Dental Screen Date: 08/30/24 HPI HPI Comments History of Present Illness Details History of Present Illness - The patient is a 74 year old male pres enting for a follow-up for chronic condition management and medication review. - Regarding his back pain, he reports in termittent symptoms managed with a topical cream. - He is not on oral medications for pain due to the bleeding risk with Brilinta. - He has indomethacin but has not used i t in a while. - The patient reports a recent toenail d etachment; the nail fell off approximately two days after his last visit. - A new nail is growing in, and he keeps a Band-Aid over it for protection. - His current medications include aspiri n, carvedilol twice daily, lisinopril once daily, metformin 1000 mg twice daily, rosuvastatin 40 mg, and Brilinta twice daily. - For preventative care, he received his flu and COVID-19 vaccinations in December. Social History - The patient plans to spend the holiday s with his children. Results - No blood work was performed for this v isit. [facility] Medical History Foot pain, left On beta timoteo at home Type 2 diabetes mellitus without complications Lab test negative for COVID-19 virus Hx of gout Back pain Overweight (BMI 25.0-29.9) Osteoarthritis of hips, bilateral Benign essential hypertension Pure hypercholesterolemia Coronary artery disease Cataract Surgical History History of heart artery stent H/O tooth extraction History of cataract surgery Hx of coronary angioplasty History of right hip replacement History of colonoscopy (~01/20/22) History of hip replacement Family History Father Diabetes Kidney failure Mother Colon cancer Social History Housing: House Are you a primary career development facilitator to a significant other at home: No Do you presently have visiting nurse or other home services: No Alcohol intake: current Alcohol intake frequency: holidays/special occasions only Patient Tobacco Use Status: Former Tobacco user Tobacco use type: Cigarette e-Cigarette/Vaping Use: Never Used Second Hand Smoke Exposure: Yes service: Yes Current occupational status: retired Cognitive needs: Yes (cane) Hearing needs: No Vision needs: Yes (reading glasses) Questionnaire Thrive Questionnaire Date Thrive assessed: 08/23/24 I am a: Patient What is your living situation today?: I have a steady place to live Within the past 12 months, did the food you bought not last and you didn't have the money to get more?: Never true Within the past 12 months, did you worry whether your food would run out before you got money to buy more?: Never true Do you have trouble paying for medicines?: No Do you have trouble getting transportation to medical appointments?: No Do you have trouble paying your heating and electricity bill?: I choose not to answer this question Do you have trouble taking care of your child, family member or friend?: No Do you have trouble with day-to-day activities such as bathing, preparing meals, shopping, managing finances, etc.?: No Are you currently unemployed and looking for a job?: No Are you interested in more education?: No Please select the resources that you would like help with: None Currently or been in a relationship where the following occur: No concerns reported THRIVE Score: 0 ALEXIS-7 AMB Questionnaire ALEXIS-7 Date ALEXIS - 7 assessed: 08/30/24 Source: Developed by Drs. Panda Yun, Yesenia Benz, Johnson Bedoya and colleagues, with an educational batool from [employer]. Review of Systems Narrative Review of Systems - General: Denies any pain. - Musculoskeletal: Reports intermittent, mild back pain. - Integumentary: Reports recent loss of a toenail with subsequent regrowth. Physical exam (Primary Care) Vital Signs: Last Vital Signs Temp 9.1 F L 03/21/25 11:08 Pulse 54 03/21/25 11:08 Resp 16 03/21/25 11:08 BP 138/60 03/21/25 11:08 Pulse Ox 100 03/21/25 11:08 Oxygen Delivery Method Room Air 03/21/25 11:08 BMI result Body Mass Index 28.1 Tobacco/Smoking Status: Tobacco use Status Tobacco use date assessed 03/21/25 03/21/25 10:56 Patient Tobacco Use Status Former Tobacco user 03/21/25 10:55 Tobacco use type Cigarette 03/21/25 10:55 e-Cigarette/Vaping Use Never Used 03/21/25 10:55 Thrive Assessment: Date of Thrive Assessment Date Thrive assessed 08/23/24 03/21/25 10:55 Currently or been in a relationship where the following occur: No concerns reported Narrative Physical Exam General: Cooperative and healthy appearing Nutritional Appearance: Well nourished Orientation/consciousness: Patient oriented x3 Limitations: No limitations Head: Normal to inspection General: Appearance normal, both eyes and all related structures Neck: Normal visual inspection Chest: Normal palpation of entire chest wall Respiratory: Normal respiratory effort Neurology: Patient oriented x3 Results AMB Hemoglobin A1c AMB Hemoglobin A1c 6.9 % Last Edit by RICCI Maciel on 03/21/25 11:08 Results Reviewed Results Reviewed: Laboratory Last Values Hgb A1c (Clinic) 6.9 % (4.0-6.0) H 03/21/25 10:56 Coding Level of Care Code Est Pt Level 4 (62641) Add On Problem Visit Only Diagnoses STEMI (ST elevation myocardial infarction) I21.3 Assessment & Plan Assessment & Plan (1) STEMI (ST elevation myocardial infarction): Code(s): I21.3 - ST elevation (STEMI) myocardial infarction of unspecified site Category: Medical Plan Plan - Medication Management: Continue current regimen including aspirin, carvedilol BID, lisinopril daily, rosuvastatin 40 mg, and Brilinta BID. - Diabetes Management: The dose of metformin has been updated to 1000 mg twice daily. - Back Pain: Continue using topical cream as needed. - Toenail Onycholysis: Continue to keep the toe covered with a Band-Aid for protection as the new nail grows. - Referrals: Will investigate and correct the issue with the referral letter for rehabilitation. - Follow-up: Patient to return in three months for follow-up. Discussion Notes I reviewed the patient's current medications, which include aspirin, carvedilol, lisinopril, rosuvastatin 40 mg, and Brilinta. We confirmed his metformin dose is now 1000 mg twice daily. We discussed that oral anti-inflammatory medications for his back pain are being avoided due to the increased bleeding risk associated with his Brilinta therapy, and he will continue with topical treatment. I noted the status of his detached toenail, which he lost after the last visit, and he is appropriately protecting the area as the new nail regrows. I confirmed he is up to date with his influenza and COVID-19 vaccinations. We will address the issue with the rehab referral letter and have him follow up in three months. Patient Instructions - Continue taking all your current medications as prescribed. - Your dose for metformin is now one 1000 mg pill taken twice a day. - For your back pain, do not take oral anti-inflammatory medicine pills because they increase your risk of bleeding while you are on Brilinta. - Keep a Band-Aid over your toe where the nail fell off to protect the new nail as it grows in. - We will look into the issue with the referral for your rehab program. - Please schedule a follow-up appointment to be seen again in three months. Orders: Orders AMB Hemoglobin A1c Today E11.9 - Type 2 diabetes mellitus without complications Cardiac Rehab Today I21.3 - ST elevation (STEMI) myocardial infarction of unspecified site Medications: Changed From metformin 1,000 mg (2 x 500 mg) PO BID 180 tabs 1RF To metformin 1,000 mg PO BID 180 tabs 1RF 90 days Discontinued diclofenac sodium 1% (Voltaren Arthritis Pain) apply to single knee, ankle, foot; for foot includes sole/toes/top of foot Discontinued Reason: Doctor's Order 4 grams topical QID 100 grams 0RF
[2025-03-21 11:08] VITALS: BP 138/60; PULSE 54; RESP 16; TEMP -12.7; TEMP 9.1; O2SAT 100; BMI 28.1
== END 2025-03-21 11:30 | disposition home or self-care (01) ==
LOC: HO.HMCH 09:58
PROVIDERS: PCP Internal Medicine; Visit Provider Internal Medicine
DX: I25.2 Old myocardial infarction (principal); E11.9 Type 2 diabetes mellitus without complications

== ENCOUNTER → 2025-03-21 09:57 | Outpatient (BNVA) | payer OTHER, SELFPAY | PROVIDERS: PCP Internal Medicine; Visit Provider Internal Medicine | DX: I21.3 ST elevation (STEMI) myocardial infarction of unspecified site (principal); Z79.82 Long term (current) use of aspirin; Z79.84 Long term (current) use of oral hypoglycemic drugs; Z79.899 Other long term (current) drug therapy | CPT/HCPCS: 83036; 99212 ==